=== PATIENT | female | born 1975 | race Caucasian/White ===

== ENCOUNTER → 2018-05-25 12:41 | Outpatient (CLI) | payer BC, SELFPAY ==
--- NOTE | 2018-05-25 12:49 | CA_ITS ---
PROCEDURE: 2-D M-mode and color Doppler study INDICATIONS FOR THE TEST: Chest pain COPD Heart Murmur Tobacco Smoking Palpitations Fatigue Syncope Edema+ Hypertension Diabetes Mellitus Rheumatic Fever SOB+REID Obesity Hyperlipidemia Family History HD+ Additional History Chest heaviness, hand edema PATIENT INFORMATION HEIGHT: 63 WEIGHT: 170 GENDER: Female B/P: 129/93 2-D/M-MODE INTERPRETATION: 2-D MEASUREMENTS OBSERVED VALUES IN CMS Right Ventricular Dimension (RVDd) 2.2 Interventricular Septum (Thickness)(IVsd) 0.7 Left Ventricular Internal Dimensions(LVIDd) 5.1 Left Ventricular Posterior Wall (Thickness)(LVPWd) 0.7 Aortic Root 2.7 Aortic Cusp Separation 2.1 Left Atrial Dimensions (LAD) 3.6 2D 1. Left atrium is normal size, left ventricle is normal size, there is preserved left ventricular systolic function, visually estimated ejection fraction of 55% with no regional wall motion abnormality. 2. The right atrium and right ventricle are normal size and contractility. 3. The aortic, mitral and tricuspid valvular grossly normal. 4. The pulmonic valve is structurally normal. 5. No significant pericardial effusion noted. DOPPLER INTERROGATION: Doppler interrogation of the aortic, mitral and tricuspid valvular presence of mild mitral and tricuspid regurgitation, tricuspid regurgitation jet velocity is inadequate for calculation of the right ventricular systolic pressure, diastolic parameters are inconclusive. CONCLUSION: 1. Normal left ventricular size, preserved left ventricular systolic function, visually estimated ejection fraction of 55% with no regional wall motion abnormality, diastolic parameters are inconclusive. 2. Mild mitral and tricuspid regurgitation 3. No significant pericardial effusion noted.
== END ==
PROVIDERS: PCP Family Medicine; Visit Provider Family Medicine
DX: R06.02 Shortness of breath (principal)
CPT/HCPCS: 93306

== ENCOUNTER → 2019-03-17 09:14 | Outpatient (CLI) | payer BC, SELFPAY ==
--- NOTE | 2019-03-17 09:18 | US_ITS ---
PROCEDURE: US ABDOMEN LIMITED CLINICAL INDICATION: ABD PAIN COMPARISON: No exams were available for comparison FINDINGS: PANCREAS: Unremarkable. No obvious mass or abnormal fluid collection. No ductal dilatation LIVER: No focal liver lesions demonstrated. Homogeneous echogenicity. No intrahepatic biliary ductal dilatation evident RIGHT KIDNEY: Unremarkable. Normal size and echogenicity. No hydronephrosis GALLBLADDER: No gallstones, gallbladder wall thickening, pericholecystic fluid, or biliary dilatation. IMPRESSION: Negative limited abdominal ultrasound Dictated by: Craig Spencer MD 03/17/2019 14:22 Signed by: <Electronically signed by Craig Spencer MD in OV> 03/17/2019 14:22
== END ==
PROVIDERS: PCP Family Medicine; Visit Provider Nurse Practitioner Family
DX: R10.9 Unspecified abdominal pain (principal)
CPT/HCPCS: 76705

== ENCOUNTER → 2019-03-28 10:16 | Outpatient (CLI) | payer BC, SELFPAY ==
--- NOTE | 2019-03-28 10:18 | NM_ITS ---
PROCEDURE: NM HEPATOBILIARY W PHARM CLINICAL INDICATION: ABD PAIN Abdominal pain COMPARISON: US ABDOMEN LIMITED from 03/17/2019 TECHNIQUE: DOSE: 8.27 mCi technetium Choletec 1.5 mcg of CCK FINDINGS: Homogeneous activity is present within the hepatic parenchyma. Activity is present in the gallbladder by 10 minutes. Activity is present in the small bowel by 15 minutes. The gallbladder ejection fraction is calculated to be 89 percent. Slight pain reported with CCK infusion IMPRESSION: No evidence of common or cystic duct obstruction. Normal gallbladder ejection fraction Dictated by: Craig Spencer MD 03/28/2019 12:20 Signed by: <Electronically signed by Craig Spencer MD in OV> 03/28/2019 12:20
== END ==
PROVIDERS: PCP Family Medicine; Visit Provider Nurse Practitioner Family
DX: R10.9 Unspecified abdominal pain (principal)
CPT/HCPCS: 78227; A9537; J2805

== ENCOUNTER 2021-04-09 09:01 | Emergency (ER) | payer BC, SELFPAY ==
[2021-04-09 09:24] VITALS: BP 133/91; PULSE 76; RESP 19; TEMP 37; O2SAT 99; BMI 26.5
--- NOTE | 2021-04-09 09:27 | HMH.EDUTC ---
[facility] [place] Impression: Otitis media Qualifiers: Otitis media type: unspecified Laterality: left Qualified Code(s): H66.92 - Otitis media, unspecified, left ear Disposition: Home, Self-Care Condition on Discharge: Good Instructions: Middle Ear Infection Additional Instructions: *Monitor Temp, Over the counter Motrin or Tylenol as directed/as needed Tylenol every 4 hours and Motrin every 6 hours (as long as your family doctor has told you that you can take it) for fever or pain. and straight to ER if unable to lower temp less than 101.0 after medication given *Warm salt water gargles may help to soothe the throat *Throat Lozenges *Warm fluids like tea with honey may help to soothe the throat *Sleep elevated *Humidifier/Vaporizer Take antibiotics as prescribed Your throat swab was sent for culture. Those results are typically sent to your primary care. Be sure to follow up in 2-3 days with your family doctor/primary care physician if no improvement so they can review those result and treat if necessary. If you don?t have a primary care doctor, I recommend you get one but in the mean time, you will have to return to a walk in clinic Follow up IMMEDIATELY for new or worsening symptoms or no Noticeable improvement over the next 48-72 hours. 911 for difficulty breathing or swallowing You were tested for today for COVID19 your test result should be back in the next 24-48 hours, you may call to the [facility] to see if your test results are back in the next 48 hours [phone] [facility] hours are 9am-9pm You was given a handout with instructions for Self Quarantine and Self isolation for while you wait on test results and what to do if they are positive If you are positive the Health Dept will be contacting you also Make sure to take your Vitamins Vit. C Vit D and Zinc if you can take them Prescriptions: Amoxicillin/Potassium Clav [Augmentin 875-125 Tablet] 1 tab PO Q12H 10 Days #20 tab Transmission Status: [facility] to [facility] methylPREDNISolone [Medrol 4mg tab] 4 mg PO DIRECTED #21 tab Transmission Status: [facility] Referrals: Cuauhtemoc Renteria MD [Primary Care Provider] - As needed Time of Disposition: 09:47 Medical Decision Making - Ravinder Inquiry Pt receiving controlled substance: No Ravinder was queried for this patient: No Vital Signs: 04/09/21 09:24 Temperature 98.6 F Temperature Source Oral Pulse Rate [Right] 76 Respiratory Rate 19 Blood Pressure [Right Arm] 133/91 H Blood Pressure Mean [Right Arm] 105 02 Sat by Pulse Oximetry 99 Oxygen Delivery Method Room Air - Lab Data Lab results reviewed: Yes: I reviewed the patient's lab results. Medical Decision Narrative: Patient state that she has take both Augmentin and Medrol dose pack in the past without complications or reactions [facility] [place] - General Stated complaint: sore throat,left ear pain Time Seen by Provider: 04/09/21 09:27 Mode of Arrival: Ambulatory Description of Symptoms (Recalled from Triage Doc. by RN): SORE THROAT & LEFT EAR SINUS DRAINAGE X3 DAYS HEENT Symptoms (Recalled from RN notes): Yes Resp Symptoms (Recalled from RN notes): No Skin Symptoms (Recalled from RN notes): No MS Symptoms (Recalled from RN notes): No Functional Status (Recalled from RN notes): WNL - History of Present Illness Provider Complaint: Patient states she has been having pain in her left ear and sore throat for several days States that now she is starting to have pain in her sinuses too States that feels like she may be getting sinus infection States that she leaves for vacation and wanted to get checked first - Related Data Previous Rx's Medication Instructions Recorded Amoxicillin/Potassium Clav 1 tab PO Q12H 10 Days #20 tab 04/09/21 [Augmentin 875-125 Tablet] methylPREDNISolone [Medrol 4mg 4 mg PO DIRECTED #21 tab 04/09/21 tab] Allergies Allergy/AdvReac Type Severity Reaction Status Date / Ti
[2021-04-09 09:49] LABS: UTC Strep Screen (Rapid) Negative (Negative)
[2021-04-09 09:51] VITALS: BP 133/91; PULSE 76; RESP 19; TEMP 37; O2SAT 99
== END 2021-04-09 09:56 | disposition home or self-care (01) ==
PROVIDERS: Emergency Provider Nurse Practitioner; PCP Family Medicine
DX: H66.92 Otitis media, unspecified, left ear (principal)
CPT/HCPCS: 87880; 99202; G0463

== ENCOUNTER 2021-07-28 17:16 | Emergency (ER) | payer BC, SELFPAY ==
[2021-07-28 18:45] VITALS: BP 136/91; PULSE 87; RESP 19; TEMP 37.1; O2SAT 99; BMI 28.3
[2021-07-28 19:16] LABS: UTC Strep Screen (Rapid) Negative (Negative)
[2021-07-28 19:17] LABS: UTC Influenza A Antigen Negative (Negative); UTC Influenza B Antigen Negative (Negative)
--- NOTE | 2021-07-28 19:46 | HMH.EDUTC ---
[facility] [place] Clinical Impression: Otitis media Qualifiers: Otitis media type: unspecified Laterality: bilateral Qualified Code(s): H66.93 - Otitis media, unspecified, bilateral Disposition: Home, Self-Care Condition on Discharge: Good Instructions: Middle Ear Infection, Amoxicillin and Clavulanic Acid, Methylprednisolone Additional Instructions: *Monitor Temp, Over the counter Motrin or Tylenol as directed/as needed Tylenol every 4 hours and Motrin every 6 hours (as long as your family doctor has told you that you can take it) for fever or pain. and straight to ER if unable to lower temp less than 101.0 after medication given *Warm salt water gargles may help to soothe the throat *Throat Lozenges *Warm fluids like tea with honey may help to soothe the throat *Sleep elevated *Humidifier/Vaporizer Your throat swab was sent for culture. Those results are typically sent to your primary care. Be sure to follow up in 2-3 days with your family doctor/primary care physician if no improvement so they can review those result and treat if necessary. If you don?t have a primary care doctor, I recommend you get one but in the mean time, you will have to return to a walk in clinic Follow up IMMEDIATELY for new or worsening symptoms or no Noticeable improvement over the next 48-72 hours. 911 for difficulty breathing or swallowing You were tested for today for COVID19 your test result should be back in the next 24-48 hours, you may check for your results on the [facility] My Health Portal if you have trouble logging on or seeing your results you may call You was given a handout with instructions for Self Quarantine and Self isolation for while you wait on test results and what to do if they are positive If you are positive the Health Dept will be contacting you also Make sure to take your Vitamins Vit. C Vit D and Zinc if you can take them Prescriptions: Amoxicillin/Potassium Clav [Augmentin 875-125 Tablet] 1 tab PO Q12H 10 Days #20 tab Transmission Status: Pending to [facility] methylPREDNISolone [Medrol 4mg tab] 4 mg PO DIRECTED #21 tab Transmission Status: [facility] Referrals: Cuauhtemoc Renteria MD [Primary Care Provider] - As needed Forms: Work/School Release Time of Disposition: 19:58 Medical Decision Making - Ravinder Inquiry Pt receiving controlled substance: No Ravinder was queried for this patient: No Vital Signs: 07/28/21 18:45 Temperature 98.7 F Temperature Source Oral Pulse Rate [Right Brachial] 87 Respiratory Rate 19 Blood Pressure [Right Arm] 136/91 H Blood Pressure Mean [Right Arm] 106 Blood Pressure Source [Right Arm] Automatic Cuff Blood Pressure Position [Right Arm] Sitting 02 Sat by Pulse Oximetry 99 Oxygen Delivery Method Room Air - Lab Data Lab results reviewed: Yes: I reviewed the patient's lab results. Lab Results 07/28/21 18:57: Influenza Type A Ag Negative, Influenza Type B Ag Negative 07/28/21 18:57: Strep Scn Rapid Clinic Negative Orders (Tests/Meds): ORDERS Category Date Time Status Covid-19 Nasal PCR ([facility]) Routine Lab 07/28/21 19:00 Received Strep Screen Confirmation Stat Micro 07/28/21 18:57 Received [facility] UTC HPI - General Stated complaint: covid test and treated for symptoms, earach Time Seen by Provider: 07/28/21 19:46 Mode of Arrival: Ambulatory Source of Information: Patient Limitations: No Limitations Description of Symptoms (Recalled from Triage Doc. by RN): PATIENT C/O SORE THROAT, HEADACHE, EAR PAIN, COUGH, AND SOA SINCE WEDNESDAY HEENT Symptoms (Recalled from RN notes): Yes Resp Symptoms (Recalled from RN notes): Yes Skin Symptoms (Recalled from RN notes): No MS Symptoms (Recalled from RN notes): No Functional Status (Recalled from RN notes): WNL - History of Present Illness Provider Complaint: Patient states that she has been having sore throat, sinus congestion and pressure along pressure and feels like she has fluid in bot
[2021-07-28 20:03] VITALS: BP 136/91; PULSE 87; RESP 19; TEMP 37.1; O2SAT 99
== END 2021-07-28 20:06 | disposition home or self-care (01) ==
PROVIDERS: Emergency Provider Nurse Practitioner; PCP Family Medicine
DX: U07.1 COVID-19 (principal); H66.93 Otitis media, unspecified, bilateral
CPT/HCPCS: 87804; 87880; 99203; C9803; G0463; U0003; U0005

== ENCOUNTER → 2021-08-13 10:22 | Outpatient (CLI) | payer BC, SELFPAY | PROVIDERS: Visit Provider Nurse Practitioner | DX: U07.1 COVID-19 (principal) | CPT/HCPCS: C9803; U0003; U0005 ==

== ENCOUNTER → 2021-08-14 14:33 | Outpatient (CLI) | payer BC, SELFPAY ==
[2021-08-14 16:31] LABS: Coronavirus 19 IgG Antibody Positive (Negative); Coronavirus 19 IgM Antibody Negative (Negative)
== END ==
PROVIDERS: PCP Family Medicine; Visit Provider Physician Assistant
DX: Z01.84 Encounter for antibody response examination (principal)
CPT/HCPCS: 36415; 86328

== ENCOUNTER 2022-08-05 08:09 | Emergency (ER) | payer BC, SELFPAY ==
[2022-08-05 08:10] VITALS: BP 137/95; PULSE 94; RESP 19; TEMP 36.7; O2SAT 97; BMI 28.5
--- NOTE | 2022-08-05 08:39 | EXP.UTC ---
Discharge Plan Disposition Patient Disposition: Home, Self-Care Condition: Good Prescriptions Prescriptions: New azithromycin [Zithromax] 250 mg tablet 250 mg PO UD DOSE PK Qty: 6 0RF Rx Instructions: Take two (2) tablets today, then one (1) tablet days #2 thru #5 benzonatate [benzonatate] 100 mg capsule 100 mg PO TIDP PRN (Reason: Cough) Qty: 30 0RF methylprednisolone 4 mg Tablets,Dose Pack 4 mg PO DIRECTED Qty: 21 0RF Referrals Follow up/Referrals: Cuauhtemoc Renteria MD [Primary Care Provider] - See instructions Activity Restrictions/Add. Instructions Additional Instructions/Restrictions: Drink plenty of fluids. Take tylenol or ibuprofen for pain or fever. Take the medications as directed. Follow up with your regular doctor. GO TO THE ER FOR ANY WORSENING SYMPTOMS Clinical Impressions Clinical Impression: Pharyngitis, Acute viral syndrome, Exposure to 2019 novel coronavirus Stand Alone Forms Stand Alone Forms: Work/School Release Discharge ED Provider: Niels Hargrove [facility] HPI General Stated complaint: headache, sore throat,body aches cough Time Seen by Provider: 08/05/22 08:38 Related Data Previous Rx's Medication Instructions Recorded azithromycin 250 mg tablet 250 mg PO UD DOSE PK #6 tabs 08/05/22 (Zithromax) benzonatate 100 mg capsule 100 mg PO TIDP PRN Cough #30 caps 08/05/22 methylprednisolone 4 mg tablets in 4 mg PO DIRECTED #21 tabs 08/05/22 a dose pack Allergies Allergy/AdvReac Type Severity Reaction Status Date / Time No Known Allergies Allergy Verified 08/05/22 08:47 [facility] Disclaimer: The information contained in this section may have been updated after the patient was seen, as this information can be updated by other users. Social History Smoking Status: Never smoker second hand exposure: No alcohol intake: never current occupational status: employed Travel in the last 8 weeks: None housing: house ROS Obtained: Yes All systems reviewed & no additional complaints except as documented Constitutional Constitutional: Reports chills and Reports fever(s) Eyes Eyes: Denies eye discharge ENT Ears, Nose, Mouth, and Throat: Reports as per HPI Cardiovascular Cardiovascular: Denies chest pain Respiratory Respiratory: Denies chest congestion and Reports cough Gastrointestinal Gastrointestingal: Reports nausea; Denies abdominal pain, constipation, cramping, diarrhea or vomiting Musculoskeletal Musculoskeletal: Denies arthralgias Integumentary/Breasts Skin/Breast: Denies rash Neurologic Neurologic: Denies paresthesias Physical Exam General General appearance: alert and in no apparent distress Head Head exam: atraumatic, normocephalic and normal inspection Eye Eye exam: Present normal appearance, PERRL and EOMI ENT ENT exam: Present mucous membranes moist and normal external ear exam Expanded ENT Exam TM/Canal exam: Bilateral TM: erythema and bulging Nose exam: Absent sinus tenderness Mouth exam: Present normal external inspection; Absent drooling Teeth exam: Present normal inspection Throat exam: Present tonsillar erythema, tonsillomegaly and tonsillar exudate Neck Neck exam: Present normal inspection, full ROM and trachea midline; Absent tenderness, meningismus or lymphadenopathy Chest Chest inspection: Present normal inspection and symmetric chest wall rise; Absent tenderness Respiratory Respiratory exam: Present normal lung sounds bilaterally; Absent respiratory distress, wheezes or stridor Cardiovascular Cardiovascular exam: Present regular rate and normal rhythm; Absent systolic murmur or diastolic murmur Abdominal Exam Abdominal exam: Present soft and normal bowel sounds; Absent distention, tenderness, guarding, rebound or rigidity Extremities Exam Extremities exam: Present normal inspection and normal capillary refill; Absent calf tenderness Back Exam Back exam: Present normal inspection and full ROM; Abse
[2022-08-05 09:04] VITALS: BP 137/95; PULSE 94; RESP 19; TEMP 36.7; O2SAT 97
== END 2022-08-05 09:04 | disposition home or self-care (01) ==
PROVIDERS: Emergency Provider Nurse Practitioner Family; PCP Family Medicine
DX: U07.1 COVID-19 (principal); J02.9 Acute pharyngitis, unspecified; R51.9 Headache, unspecified; R52 Pain, unspecified; R05.9 Cough, unspecified
CPT/HCPCS: 99212; 99213; C9803; G0463; U0003; U0005

== ENCOUNTER → 2022-09-08 06:59 | Outpatient (CLI) | payer BC, SELFPAY ==
[2022-09-08 07:35] LABS: Basophils # 0.1 K/mm3 (0-0.2); Basophils % 1.3 % (0.1-2.0); Eosinophils # 0.1 K/mm3 (0.0-0.4); Eosinophils % 2.4 % (0.1-12.0); Hematocrit 42.3 % (37.0-47.0); Lymphocytes # 1.9 K/mm3 (0.7-4.5); Lymphocytes % 38.3 % (10-50); Mean Corpuscular Hemoglobin 29.6 pg (27.0-31.2); Mean Corpuscular Volume 89.7 fl (81-99); Mean Platelet Volume 7.5 fl (7.4-10.4); Monocytes # 0.3 K/mm3 (0.1-1.0); Monocytes % 5.1 % (1.7-9.3); Neutrophils # 2.6 K/mm3 (1.8-7.8); Neutrophils % 52.9 % (37.0-80.0); Platelet Count 260 K/mm3 (142-424); Red Blood Count 4.71 M/mm3 (4.20-5.40); Red Cell Distribution Width 13.1 % (11.5-17.5); White Blood Count 4.8 K/mm3 (4.8-10.8)
[2022-09-08 08:02] LABS: Chloride 111 mmol/L (98-107); Potassium 4.6 mmoL/L (3.5-5.1); Sodium 143 mmol/L (136-145)
[2022-09-08 08:05] LABS: Alanine Aminotransferase 30 U/L (12-78); Albumin Level 4.3 g/dl (3.5-5.0); Albumin/Globulin Ratio 1.5 (1.1-1.8); Alkaline Phosphatase 97 U/L (38-126); Anion Gap 12.6 mEq/L (5-15); Aspartate Amino Transferase 53 U/L (14-36); Bilirubin,Total 0.4 mg/dl (0.2-1.3); Blood Urea Nitrogen 18 mg/dl (7-17); Carbon Dioxide 24 mmol/L (22.0-30.0); Cholesterol 160 mg/dl (140-200); Estimated Glomerular Filt Rate 90 ml/min (>60); Free T4 (Free Thyroxine) 0.79 ng/dl (0.78-2.19); GFR (African American) 109 ML/MIN (>60); Globulin 2.8 g/dL (1.3-3.2); Glucose 99 mg/dl (74-100); Total Protein,Serum 7.1 g/dl (6.3-8.2); Triglycerides 93 mg/dl (30-150); VLDL Cholesterol 19 mg/dL (0-40)
[2022-09-08 08:06] LABS: Chol/HDL Ratio 3.1 (1-3.5); HDL Cholesterol 51 mg/dl (40-60)
[2022-09-08 08:14] LABS: 25-OH Vitamin D, Total 37.6 ng/mL (30-100)
[2022-09-08 08:23] LABS: Direct LDL Cholesterol 79.51 mg/dL (100-129)
[2022-09-08 08:37] LABS: Thyroid Stimulating Hormone 1.95 uIU/mL (0.465-4.68)
[2022-09-08 09:14] LABS: Vitamin B12 290 pg/mL (239-931)
== END ==
PROVIDERS: PCP Family Medicine; Visit Provider Physician Assistant
DX: R53.83 Other fatigue (principal); R79.89 Other specified abnormal findings of blood chemistry; Z13.220 Encounter for screening for lipoid disorders
CPT/HCPCS: 36415; 80053; 80061; 82306; 82607; 84439; 84443; 85025

== ENCOUNTER → 2023-05-10 10:41 | Outpatient (CLI) | payer BC, SELFPAY | PROVIDERS: PCP Student in an Organized Health Care Education/Training Program; Visit Provider Student in an Organized Health Care Education/Training Program | DX: J02.0 Streptococcal pharyngitis (principal) | CPT/HCPCS: 87635 ==

== ENCOUNTER → 2023-07-05 16:06 | Outpatient (CLI) | payer BC, SELFPAY ==
[2023-07-05 16:15] LABS: Adenovirus,PCR Not Detected (NotDetected); Coronavirus 19, PCR Not Detected (NotDetected); Coronavirus 229E Not Detected (NotDetected); Coronavirus NL63 Not Detected (NotDetected); Coronavirus OC43 Not Detected (NotDetected); Coronovirus HKU1,PCR Not Detected (NotDetected); Human Metapneumovirus Not Detected (NotDetected); Influenza A, PCR Not Detected (NotDetected); Influenza AH1, 2009 Not Detected (NotDetected); Influenza AH1, PCR Not Detected (NotDetected); Influenza AH3,PCR Not Detected (NotDetected); Influenza B, PCR Not Detected (NotDetected); Parainfluenza 1, PCR Not Detected (NotDetected); Parainfluenza 2, PCR Not Detected (NotDetected); Parainfluenza 3, PCR Not Detected (NotDetected); Parainfluenza 4, PCR Not Detected (NotDetected); Respiratory Syncytial Virus Not Detected (NotDetected); Rhinovirus/Enterovirus Not Detected (NotDetected)
== END ==
PROVIDERS: PCP Family Medicine; Visit Provider Family Medicine
DX: J06.9 Acute upper respiratory infection, unspecified (principal)
CPT/HCPCS: 87632; 87635

== ENCOUNTER 2024-01-05 07:13 | Outpatient (CLI) | payer BC, SELFPAY ==
[2024-01-05 07:26] LABS: Eosinophils # 0.2 K/mm3 (0.0-0.4); Eosinophils % 3.6 % (0.1-12.0); Hematocrit 42.8 % (37.0-47.0); Lymphocytes # 1.7 K/mm3 (0.7-4.5); Lymphocytes % 39.2 % (10-50); Mean Corpuscular HGB Conc 32.8 g/dL (31.8-35.4); Mean Corpuscular Hemoglobin 29.9 pg (27.0-31.2); Mean Platelet Volume 8.4 fl (7.4-10.4); Monocytes # 0.3 K/mm3 (0.1-1.0); Monocytes % 5.5 % (1.7-9.3); Neutrophils # 2.3 K/mm3 (1.8-7.8); Neutrophils % 50.6 % (37.0-80.0); Platelet Count 210 K/mm3 (142-424); Red Cell Distribution Width 13.5 % (11.5-17.5); White Blood Count 4.5 K/mm3 (4.8-10.8)
[2024-01-05 10:46] LABS: Chloride 107 mmol/L (98-107); Potassium 4.3 mmoL/L (3.5-5.1); Sodium 140 mmol/L (136-145)
[2024-01-05 10:49] LABS: Alanine Aminotransferase 33 U/L (12-78); Albumin Level 4.3 g/dl (3.5-5.0); Albumin/Globulin Ratio 1.6 (1.1-1.8); Alkaline Phosphatase 92 U/L (38-126); Anion Gap 13.3 mEq/L (5-15); Aspartate Amino Transferase 42 U/L (14-36); Bilirubin,Total 0.5 mg/dl (0.2-1.3); Blood Urea Nitrogen 16 mg/dl (7-17); Carbon Dioxide 24 mmol/L (22.0-30.0); Cholesterol 175 mg/dl (140-200); Estimated Glomerular Filt Rate 77 ml/min (>60); GFR (African American) 93 ML/MIN (>60); Globulin 2.7 g/dL (1.3-3.2); Hemoglobin A1C 5.4 % (4.0-6.0); Triglycerides 123 mg/dl (30-150); VLDL Cholesterol 25 mg/dL (0-40)
[2024-01-05 10:50] LABS: Calcium 9.6 mg/dl (8.4-10.2); Chol/HDL Ratio 3.4 (1-3.5); Glucose 96 mg/dl (74-100); HDL Cholesterol 51 mg/dl (40-60)
[2024-01-05 11:01] LABS: Direct LDL Cholesterol 95.32 mg/dL (100-129)
[2024-01-05 11:21] LABS: Thyroid Stimulating Hormone 2.97 uIU/mL (0.465-4.68)
== END 2024-01-05 23:59 | disposition home or self-care (01) ==
LOC: LAB 07:14
PROVIDERS: PCP Family Medicine; Visit Provider Nurse Practitioner Family
DX: D64.9 Anemia, unspecified (principal); Z13.220 Encounter for screening for lipoid disorders; Z13.1 Encounter for screening for diabetes mellitus; Z13.29 Encounter for screening for other suspected endocrine disorder
CPT/HCPCS: 36415; 80050; 80053; 80061; 83036; 84443; 85025

== ENCOUNTER 2024-03-07 11:56 | Emergency (ER) | payer BC, SELFPAY ==
[2024-03-07 12:05] VITALS: BP 131/101; PULSE 67; RESP 20; TEMP 36.9; O2SAT 97; BMI 28.8
--- NOTE | 2024-03-07 12:52 | ED_ITS ---
Discharge Plan Disposition Patient Disposition: Home, Self-Care Condition: Good Prescriptions Prescriptions: New ondansetron 4 mg Tablet,Disintegrating 4 mg PO Q8H PRN (Reason: Nausea) Qty: 12 0RF Referrals Follow up/Referrals: Cuauhtemoc Renteria MD [Primary Care Provider] - See instructions Activity Restrictions/Add. Instructions Additional Instructions/Restrictions: Drink plenty of fluids. Take tylenol or ibuprofen for pain or fever. Take the medications as directed. Follow up with your regular doctor. GO TO THE ER FOR ANY WORSENING SYMPTOMS Clinical Impressions Clinical Impression: Gastroenteritis Stand Alone Forms Stand Alone Forms: Work/School Release Instructions Patient Instructions: DI for Viral Gastroenteritis -- Adult, Ondansetron Print Language Print Language: [place] Discharge ED Provider: Niels Hargrove [facility] General Stated complaint: abd pain, diarrhea Mode of Arrival: Ambulatory Source of Information: Patient Limitations: No Limitations Time Seen by Provider: 03/07/24 12:52 Description of Symptoms (Recalled from Triage Doc. by RN): PATIENT C/O NAUSEA, DIARRHEA, AND STOMACH CRAMPS THAT STARTED WEDNESDAY NIGHT. SHE STATES SHE HAS NOT EATEN OR DRANK SINCE YESTERDAY BECAUSE IT MAKES HER HAVE MORE DIARRHEA AND FEEL WORSE HEENT Symptoms (Recalled from RN notes): No Resp Symptoms (Recalled from RN notes): No Skin Symptoms (Recalled from RN notes): No MS Symptoms (Recalled from RN notes): No Functional Status (Recalled from RN notes): WNL Related Data Previous Rx's ?Medication ?Instructions ?Recorded ondansetron 4 mg disintegrating 4 mg PO Q8H PRN Nausea #12 tabs 03/07/24 tablet Allergies Allergy/AdvReac Type Severity Reaction Status Date / Time No Known Allergies Allergy Verified 05/10/23 10:10 Worker's Comp Is this a Worker's Comp case?: No [facility] Disclaimer: The information contained in this section may have been updated after the patient was seen, as this information can be updated by other users. Medical History (Updated 03/07/24 @ 13:03 by Niels Hargrove APRN) Superior labrum [id number] (SLAP) tear of right shoulder Surgical History (Updated 05/10/23 @ 10:13 by MADIE Gibson) History of bladder surgery History of partial hysterectomy [place] teeth extracted Family History Brother Asthma Cancer Father Cancer Social History Smoking Status: Never smoker second hand exposure: No alcohol intake: never current occupational status: employed Travel in the last 8 weeks: None housing: house ROS Obtained: Yes All systems reviewed & no additional complaints except as documented Constitutional Constitutional: Denies chills, Denies fever(s) and Reports poor appetite ENT Ears, Nose, Mouth, and Throat: Denies dizziness and Denies sore throat Cardiovascular Cardiovascular: Denies dyspnea Respiratory Respiratory: Denies chest congestion, Denies cough and Denies dyspnea Gastrointestinal Gastrointestingal: Reports as per HPI; Denies abdominal pain Genitourinary Female Genitourinary: Denies difficulty voiding, Denies dysuria, Denies hematuria, Denies urinary frequency, Denies urinary incontinence, Denies urinary hesitancy and Denies urinary urgency Musculoskeletal Musculoskeletal: Denies arthralgias Integumentary/Breasts Skin/Breast: Denies rash Neurologic Neurologic: Denies dizziness Physical Exam General General appearance: alert and in no apparent distress Head Head exam: atraumatic and normocephalic Eye Eye exam: Present normal appearance, PERRL and EOMI ENT ENT exam: Present normal exam, normal oropharynx, mucous membranes moist, TM's normal bilaterally and normal external ear exam Neck Neck exam: Present normal inspection, full ROM and trachea midline; Absent tenderness, meningismus or lymphadenopathy Chest Chest inspection: Present normal inspection and symmetric chest wall rise; Absent tenderness, rash or abscess Respiratory Respiratory exam: Present normal lung sounds bilaterally; Absent respiratory distress, wheezes or stridor Cardiovascular Cardiovascular exam: Present regular rate and normal rhythm; Absent irregular rhythm, systolic murmur, diastolic murmur or JVD Abdominal Exam Abdominal exam: Present soft and hyperactive bowel sounds; Absent distention, tenderness, guarding, rebound, rigidity, psoas sign, obturator sign, heel tap sign, Hanna's sign, Rovsing's sign or tenderness at McBurney's Point Extremities Exam Extremities exam: Present normal inspection and full ROM; Absent tenderness Back Exam Back exam: Present normal inspection and full ROM; Absent tenderness, CVA tenderness (R) or CVA tenderness (L) Neurological Exam Neurological exam: Present alert, oriented X3 and CN II-XII intact Psychiatric Psychiatric exam: Present normal affect and normal mood Skin Skin exam: Present warm, dry, intact and normal color Lymphatic Lymphatic Findings: no adenopathy Medical Decision Making Medical Records Medical records reviewed: No I reviewed the patient's medical records. Ravinder Inquiry Pt receiving controlled substance: No Vital Signs: 03/07/24 12:05 Temperature 98.4 F Temperature Source Oral Pulse Rate [Left Brachial] 67 Respiratory Rate 20 Blood Pressure [Left Arm] 131/101 H Blood Pressure Mean [Left Arm] 111 Blood Pressure Source [Left Arm] Automatic Cuff Blood Pressure Position [Left Arm] Sitting 02 Sat by Pulse Oximetry 97 Oxygen Delivery Method Room Air
[2024-03-07 13:00] VITALS: BP 131/101; PULSE 67; RESP 20; TEMP 36.9; O2SAT 97
== END 2024-03-07 13:04 | disposition home or self-care (01) ==
PROVIDERS: Emergency Provider Nurse Practitioner Family; PCP Family Medicine
DX: R10.9 Unspecified abdominal pain (principal); K52.9 Noninfective gastroenteritis and colitis, unspecified; R11.0 Nausea
CPT/HCPCS: 99212; 99214; G0463

== ENCOUNTER 2024-03-11 09:48 | Emergency (ER) | payer BC, SELFPAY ==
[2024-03-11 09:55] VITALS: BP 152/97; PULSE 71; RESP 20; TEMP 36.6; O2SAT 98; BMI 28.3
[2024-03-11 10:06] LABS: UTC Strep Screen (Rapid) Negative (Negative)
--- NOTE | 2024-03-11 10:27 | ED_ITS ---
Discharge Plan Disposition Patient Disposition: Home, Self-Care Condition: Good Prescriptions Prescriptions: New azithromycin 250 mg tablet 250 mg PO DIRECTED Qty: 6 0RF Rx Instructions: Take two (2) tablets on day #1, then one (1) tablet day #2 thru #5 No Action ondansetron 4 mg Tablet,Disintegrating 4 mg PO Q8H PRN (Reason: Nausea) Qty: 12 0RF Referrals Follow up/Referrals: Cuauhtemoc Renteria MD [Primary Care Provider] - See instructions Activity Restrictions/Add. Instructions Additional Instructions/Restrictions: Start antibiotics today be sure to take it as ordered with the full length of time although you should start feeling better in 24-48 hours. Change toothbrush and toothpaste 24-48 hours after starting antibiotics Tylenol or Motrin as needed for fever or pain Encourage fluids, water, Gatorade, Powerade, try cold fluids, popsicles, ice cream will make it feel better You are contagious for 24 hours. Avoid kissing anyone, no eating or drinking after anyone. You are contagious. Follow-up the ER for new or worsening symptoms or no noticeable improvement over the next 24-48 hours. Follow-up with PCP this week. Clinical Impressions Clinical Impression: Strep throat Instructions Patient Instructions: DI for Strep Throat Print Language Print Language: Mauritanian Discharge ED Provider: Ana ([facility])[place] [facility] [place] General Stated complaint: sore throat, left ear pain Mode of Arrival: Ambulatory Source of Information: Patient Limitations: No Limitations Time Seen by Provider: 03/11/24 10:27 Description of Symptoms (Recalled from Triage Doc. by RN): PATIENT C/O SORE THROAT AND LEFT EAR PAIN SINCE YESTERDAY HEENT Symptoms (Recalled from RN notes): Yes Resp Symptoms (Recalled from RN notes): No Skin Symptoms (Recalled from RN notes): No MS Symptoms (Recalled from RN notes): No Functional Status (Recalled from RN notes): WNL History of Present Illness Provider Complaint: 48 yr female presents for sore throat and left ear pain Related Data Previous Rx's ?Medication ?Instructions ?Recorded ondansetron 4 mg disintegrating 4 mg PO Q8H PRN Nausea #12 tabs 03/07/24 tablet azithromycin 250 mg tablet 250 mg PO DIRECTED #6 tabs 03/11/24 Allergies Allergy/AdvReac Type Severity Reaction Status Date / Time No Known Allergies Allergy Verified 05/10/23 10:10 Worker's Comp Is this a Worker's Comp case?: No [facility] Disclaimer: The information contained in this section may have been updated after the patient was seen, as this information can be updated by other users. Medical History , INFORMATION SERVICES CONSULTANT) Superior labrum evkwykvi-dw-ikrfforvv (SLAP) tear of right shoulder Surgical History , INFORMATION SERVICES CONSULTANT) History of bladder surgery History of partial hysterectomy [place] teeth extracted Family History , INFORMATION SERVICES CONSULTANT) Cancer Brother Father Asthma Brother Social History , INFORMATION SERVICES CONSULTANT) Smoking Status: Never smoker second hand exposure: No alcohol intake: never current occupational status: employed Travel in the last 8 weeks: None housing: house ROS Obtained: Yes All systems reviewed & no additional complaints except as documented Constitutional Constitutional: Reports system reviewed and no additional complaints, except as documented Eyes Eyes: Reports system reviewed and no additional complaints, except as documented ENT Ears, Nose, Mouth, and Throat: Reports system reviewed and no additional complaints, except as documented, Reports as per HPI, Reports otalgia and Reports sore throat Cardiovascular Cardiovascular: Reports system reviewed and no additional complaints, except as documented Respiratory Respiratory: Reports system reviewed and no additional complaints, except as documented Gastrointestinal Gastrointestingal: Reports system reviewed and no additional complaints, except as documented Musculoskeletal Musculoskeletal: Reports system reviewed and no additional complaints, except as documented Integumentary/Breasts Skin/Breast: Reports system reviewed and no additional complaints, except as documented Neurologic Neurologic: Reports system reviewed and no additional complaints, except as documented Endocrine Endocrine: Reports system reviewed and no additional complaints, except as documented Hematologic/Lymphatic Henatologic/Lymphatic: Reports system reviewed and no additional complaints, except as documented Allergic/Immunologic Allergic/Immunologic: Reports system reviewed and no additional complaints, except as documented Physical Exam General General appearance: alert and in no apparent distress ENT ENT exam: Present mucous membranes moist and TM's normal bilaterally Expanded ENT Exam Throat exam: Present tonsillar erythema, tonsillomegaly and tonsillar exudate Respiratory Respiratory exam: Present normal lung sounds bilaterally Cardiovascular Cardiovascular exam: Present regular rate and normal rhythm Neurological Exam Neurological exam: Present alert and oriented X3 Skin Skin exam: Present warm and intact Medical Decision Making Medical Records Medical records reviewed: Yes I reviewed the patient's medical records. Ravinder Inquiry Pt receiving controlled substance: No Ravinder was queried for this patient: No Vital Signs: 03/11/24 09:55 Temperature 97.9 F Temperature Source Oral Pulse Rate [Left Brachial] 71 Respiratory Rate 20 Blood Pressure [Left Arm] 152/97 H Blood Pressure Mean [Left Arm] 115 Blood Pressure Source [Left Arm] Automatic Cuff Blood Pressure Position [Left Arm] Sitting 02 Sat by Pulse Oximetry 98 Oxygen Delivery Method Room Air Lab Data Lab results reviewed: Yes I reviewed the patient's lab results. Lab Results 03/11/24 09:58: Strep Scn Rapid Clinic Negative Orders (Tests/Meds): ORDERS Category Date Time Status Strep Screen Confirmation Stat Micro 03/11/24 09:58 Received
[2024-03-11 10:42] VITALS: BP 152/97; PULSE 71; RESP 20; TEMP 36.6; O2SAT 98
== END 2024-03-11 10:48 | disposition home or self-care (01) ==
PROVIDERS: Emergency Provider Nurse Practitioner Family; PCP Family Medicine
DX: J02.0 Streptococcal pharyngitis (principal); H92.02 Otalgia, left ear
CPT/HCPCS: 87880; 99212; 99214; G0463

== ENCOUNTER 2024-08-30 16:34 | Outpatient (CLI) | payer BC, SELFPAY ==
[2024-08-30 16:44] LABS: Human Rhinovirus Not Detected (NotDetected); Influenza A, PCR Not Detected (NotDetected); Influenza B, PCR Not Detected (NotDetected); Respiratory Syncytial Virus Not Detected (NotDetected)
[2024-08-30 18:19] LABS: Coronavirus 19, PCR Detected (NotDetected)
== END 2024-08-30 23:59 | disposition home or self-care (01) ==
LOC: LAB 16:35
PROVIDERS: PCP Family Medicine; Visit Provider Family Medicine
DX: J06.9 Acute upper respiratory infection, unspecified (principal)
CPT/HCPCS: 87631

== ENCOUNTER 2025-01-09 13:21 | Emergency (ER) | payer BC, SELFPAY ==
--- NOTE | 2025-01-09 13:24 | PC.NURSE ---
PT attempting to leave [facility]A
[2025-01-09 13:30] VITALS: BP 122/86; BP 132/86; PULSE 80; PULSE 83; RESP 18; TEMP 36.9; O2SAT 100; BMI 21.2
--- NOTE | 2025-01-09 13:36 | CT_ITS ---
FINAL REPORT TECHNIQUE: After the administration of intravenous contrast, axial images were obtained through the abdomen and pelvis by computed tomography. This study was performed with technique to keep radiation doses as low as reasonably achievable, (ALARA). Individualized dose reduction techniques using automated exposure control or adjustment of the MA and/or KV according to the patient's size were employed. CLINICAL HISTORY: Right-sided abdominal pain, nausea FINDINGS: Abdomen: The lung bases are clear. The liver demonstrates a tiny, benign-appearing cyst in the lateral left lobe measuring up to 7 mm. Gallbladder is present. The spleen is unremarkable. The adrenals are normal. The pancreas is unremarkable. The kidneys enhance appropriately. The aorta is normal in caliber. There is no free fluid or adenopathy. Pelvis: The appendix is normal. There is localized inflammatory reaction in the ascending colon with associated mucosal thickening best seen on images 45-52 of series 3. There is high density within a diverticulum. No definite abscess is seen. The urinary bladder is distended. There is no free fluid or adenopathy. IMPRESSION: Acute diverticulitis without definite abscess. Reviewed, Interpreted and Dictated by Jama Bardales MD Transcribed by Oneyda Riley Authenticated and [facility]
--- NOTE | 2025-01-09 13:37 | ED_ITS ---
Discharge Plan Disposition Patient Disposition: Home, Self-Care Condition: Good Prescriptions Prescriptions: New metronidazole 500 mg tablet 500 mg PO BID 5 Days Qty: 10 0RF ciprofloxacin HCl [Cipro] 500 mg tablet 500 mg PO BID 5 Days Qty: 10 0RF metronidazole 500 mg tablet 500 mg PO Q8H 5 Days Qty: 15 0RF No Action methylprednisolone [Medrol (Homero)] 4 mg tablets,dose pack See Rx Instructions PO PER PKG DIR Qty: 21 0RF Rx Instructions: PO PER PKG DIR for 6 days wojhoekqmsoyjyw-rzpwpfxlw-QI [Bromfed DM] 2-30-10 mg/5 mL syrup 10 ml PO Q6H PRN (Reason: cough/cold symptoms) Qty: 150 0RF azithromycin 250 mg tablet See Rx Instructions PO .COMPLEX Qty: 6 0RF Rx Instructions: For 250 mg dose pack: take 500 mg today (day 1), then 250 mg for 4 days (days 2-5) PO Referrals Follow up/Referrals: Cuauhtemoc Renteria MD [Primary Care Provider, Medical] - See instructions Joel Cooper II, MD [Staff Physician, Gastroenterology] - See instructions Activity Restrictions/Add. Instructions Additional Instructions/Restrictions: Please take your medication as prescribed, recommend clear liquid diet, bowel rest, please follow-up with GI doctor and PCP in the upcoming days, if you have worsening fever chills pain, inability to tolerate oral intake, please return to the emergency department. Clinical Impressions Clinical Impression: Acute diverticulitis Instructions Patient Instructions: DI for Diverticulitis Print Language Print Language: Tajik Discharge ED Provider: Janes Allison Adult HPI <CARO Seay - Last Filed: 01/09/25 16:27> General Chief complaint: Abdominal Pain Stated complaint: abd pain nausea Time Seen by Provider: 01/09/25 13:27 Mode of Arrival: Ambulatory Source of Information: Patient Description of Symptoms (Recalled from ER Triage Doc. by RN): PT presents to the ED for evaluation of right ABD pain that has progressively gotten worse since this am. PT denies burning with urination, denies complications with urination. Pt stated she had a normal bowel movement this am but was constipated prior to that BM. PT rates pain 3/10. PT has not taken anything for pain. PT stated the pain is around naval and goes towards the right of abd. Denies radiation to back or shoulders. PT states she has gallbladder and appendix. History of Present Illness HPI narrative: 49-year-old female presents to the emergency department with right-sided abdominal pain, that started this morning, and progressively worsening, she endorses nausea, denies fever chills chest pain shortness of breath, denies any vomiting, denies any diarrhea, does admit to constipation, which is somewhat chronic for her, she states she had bowel movement yesterday and today, which was normal and formed in caliber, denies any hematuria melena hematochezia, hemoptysis or hematemesis, denies any real urinary type symptomatology, denies any vaginal type symptomatology, patient has no other relevant past medical history, takes no other medications at home, denies any alcohol tobacco or drug use, prior partial hysterectomy and bladder tack, admits to remote gallbladder problems , several years ago, but is had no other prior intervention/workup. Triage vitals unremarkable Related Data Previous Rx's ?Medication ?Instructions ?Recorded azithromycin 250 mg tablet See Rx Instructions PO .COM PLEX #6 10/15/24 tabs sqmxnoveruvpljz-mtobfganqdmlmuh-SJ 10 ml PO Q6H PRN co ugh/cold 10/15/24 2 mg-30 mg-10 mg/5 mL oral syrup symptoms #150 mL (Bromfed DM) methylprednisolone 4 mg tablets in See Rx Instructions PO PER PKG DIR 10/15/24 a dose pack (Medrol (Homero)) #21 tabs ciprofloxacin HCl 500 mg tablet 500 mg PO BID 5 days # 10 tabs 01/09/25 (Cipro) metronidazole 500 mg tablet 500 mg PO BID 5 days #10 t abs 01/09/25 metronidazole 500 mg tablet 500 mg PO Q8H 5 days #15 t abs 01/09/25 Allergies Allergy/AdvReac Type Severity Reaction Status Date / Time No Known Allergies Allergy Verified 10/15/24 11:20 [facility] <CARO Seay - Last Filed: 01/09/25 16:27> [facility] Disclaimer: The information contained in this section may have been updated after the patient was seen, as this information can be updated by other users. Medical History (Updated 01/09/25 @ 16:27 by CARO Seay) Sinusitis Superior labrum rifqsshl-gz-nhcphjzzj (SLAP) tear of right shoulder Surgical History History of bladder surgery History of partial hysterectomy Orange teeth extracted Family History Brother Asthma Cancer Father Cancer Social History Smoking Status: Never smoker second hand exposure: No alcohol intake: never current occupational status: employed Travel in the last 8 weeks?: None housing: house Other Medical History Have you received the Pneumonia Vaccine: No <CARO Seay - Last Filed: 01/09/25 16:27> ROS Obtained: Yes All systems reviewed & no additional complaints except as documented Physical Exam <CARO Seay - Last Filed: 01/09/25 16:27> General General appearance: alert and in no apparent distress Head Head exam: atraumatic and normocephalic Eye Eye exam: Present PERRL and EOMI ENT ENT exam: Present mucous membranes moist Neck Neck exam: Present normal inspection Chest Chest inspection: Present normal inspection and symmetric chest wall rise Respiratory Respiratory exam: Present normal lung sounds bilaterally; Absent respiratory distress Cardiovascular Cardiovascular exam: Present regular rate and normal rhythm Abdominal Exam Abdominal exam: Present soft, tenderness, guarding, Hanna's sign and tenderness at McBurney's Point; Absent rebound, rigidity or Rovsing's sign Abdominal tenderness: Present RUQ, RLQ and mild Comment: Mild to moderate tenderness to palpation to the RLQ, RUQ, positive Hanna sign and positive McBurney's point tenderness, mild CVA tenderness to the right, negative CVA tenderness to the left. Extremities Exam Extremities exam: Present normal inspection Back Exam Back exam: Present CVA tenderness (R); Absent CVA tenderness (L) Neurological Exam Neurological exam: Present alert and oriented X3 Psychiatric Psychiatric exam: Present normal affect Skin Skin exam: Present warm and dry Medical Decision Making <CARO Seay - Last Filed: 01/09/25 16:27> Medical Records Medical records reviewed: Yes I reviewed the patient's medical records. Screening: Per USPSTF and CDC recommendations, given the prevalence of disease in our region, it is our hospital?s policy to screen for HIV and viral Hepatitis for all patients aged 18 and over and those with ongoing risk factors. Ravinder Inquiry Pt receiving controlled substance: Yes Ravinder was queried for this patient: No Reason not queried -: Emergent pt cond-no time Risks and benefits of using a controlled substance: were discussed with pt by me Vital Signs: 01/09/25 13:30 01/09/25 13:30 01/09/25 14:00 Temperature 98.4 F Temperature Source Oral Pulse Rate 83 75 Pulse Rate [Right] 80 Respiratory Rate 18 18 18 Blood Pressure 132/86 126/75 Blood Pressure [Right Arm] 122/86 Blood Pressure Mean 101 97 Blood Pressure Mean [Right Arm] 98 Blood Pressure Source Blood Pressure Position 02 Sat by Pulse Oximetry 100 100 99 Oxygen Delivery Method Room Air 01/09/25 14:30 01/09/25 15:00 01/09/25 15:30 Temperature Temperature Source Pulse Rate 76 20 L 73 Pulse Rate [Right] Respiratory Rate 18 18 18 Blood Pressure 127/81 125/90 109/71 L Blood Pressure [Right Arm] Blood Pressure Mean 98 98 87 Blood Pressure Mean [Right Arm] Blood Pressure Source Blood Pressure Position 02 Sat by Pulse Oximetry 98 100 98 Oxygen Delivery Method 01/09/25 16:30 Temperature 98.0 F Temperature Source Oral Pulse Rate 80 Pulse Rate [Right] Respiratory Rate 16 Blood Pressure 117/81 Blood Pressure [Right Arm] Blood Pressure Mean Blood Pressure Mean [Right Arm] Blood Pressure Source Automatic Cuff Blood Pressure Position Sitting 02 Sat by Pulse Oximetry Oxygen Delivery Method Room Air Lab Data Lab results reviewed: Yes I reviewed the patient's lab results. Lab Results 01/09/25 13:28: Urine Color Yellow, Urine Appearance Clear, Urine pH 7.0, Ur Specific [place] 1.025, Urine Protein Negative, Urine Glucose (UA) Negative, Urine Ketones Negative, Urine Blood Negative, Urine Nitrate Negative, Urine Bilirubin Negative, Urine Urobilinogen 0.2, Ur Leukocyte Esterase Trace, Urine RBC 3-5, Urine WBC 20-50, Ur Squamous Epith Cells 10-20, Urine Bacteria 3+, Urine Mucus 1+ 01/09/25 13:48: WBC 7.6, RBC 4.26, Hgb 12.7, Hct 38.0, MCV 89.2, MCH 29.8, MCHC 33.4, RDW 11.9, Plt Count 173, MPV 10.0, Neut % (Auto) 74.3, Lymph % (Auto) 16.4, [place] % (Auto) 7.3, Eos % (Auto) 1.6, Baso % (Auto) 0.1, Neut # (Auto) 5.6, Lymph # (Auto) 1.2, [place] # (Auto) 0.6, Eos # (Auto) 0.1, Baso # (Auto) 0.0, Sodium 139, Potassium 3.7, Chloride 107, Carbon Dioxide 29, Anion Gap 6.7, BUN 11, Creatinine 0.70, Estimated Creat Clear 85, Estimated GFR 90, Est GFR ( Amer) 109, Glucose 98, Lactate 0.9, Calcium 9.0, Total Bilirubin 0.5, AST 30, ALT 19, Alkaline Phosphatase 75, Total Protein 7.2, Albumin 4.3, Globulin 2.9, Albumin/Globulin Ratio 1.5, Lipase 99 01/09/25 13:48 01/09/25 13:48 Orders (Tests/Meds): ED MEDICATIONS Discontinued Medications Generic Name Dose Route Start Last Admin Trade Name Timq PRN Reason Stop Dose Admin Iopamidol 75 ml 01/09/25 14:16 01/09/25 14:17 Iopamidol-370 (76%);100ml Bottle IV 01/09/25 14:17 75 ml ONCE ONE Administration Morphine Sulfate 2 mg 01/09/25 13:36 01/09/25 13:56 Morphine 2mg/Ml Syringe IV 01/09/25 13:37 2 mg ONCE ONE Administration Ondansetron HCl 4 mg 01/09/25 13:37 01/09/25 13:55 Ondansetron 4mg/2ml Vial IV 01/09/25 13:38 4 mg ONCE ONE Administration Sodium Chloride 10 ml 01/09/25 14:16 01/09/25 14:17 Sodium Chloride 0.9% 10ml Syr (Rad Only) IV 01/09/25 14:17 10 ml ONCE ONE Administration ORDERS Category Date Time Status CT abdomen pelvis w con Stat Cat Scan 01/09/25 13:36 Completed Complete Blood Count Auto Diff Stat Lab 01/09/25 13:48 Completed Comprehensive Metabolic Panel Stat Lab 01/09/25 13:48 Completed Lactic Acid Stat Lab 01/09/25 13:48 Completed Lipase Stat Lab 01/09/25 13:48 Completed Urinalysis and Microscopic Stat Lab 01/09/25 13:28 Completed Urine Culture Stat Micro 01/09/25 13:28 Received Medical Decision Narrative: 49-year-old female presents the emergency department with abdominal pain that is localized to the right side, with nausea, constipation yesterday, no vomiting, differential diagnosis include but not limited to appendicitis, pancreatitis, bowel obstruction, ileus, pseudo colonic obstruction, volvulus, acute UTI, acute pyelonephritis, nephrolithiasis, ureterolithiasis, diverticulitis, urine cyst among others. I discussed this patient's case with attending physician Dr. Vickers Obtain basic laboratory studies, lactate level, lipase level urinalysis, CT abdomen pelvis with contrast, will give 2 mg IV morphine 4 mg of Zofran for nausea. CMP is unremarkable, lipase is within normal limits, there is no lactic acidosis. CBC unremarkable. Urinalysis is unremarkable, negative nitrites, leukocyte esterase. I reviewed the patient's CT and pelvis with contrast along the corresponding radiologic report, acute diverticulitis without definitive abscess. I discussed the results with the patient family bedside, recommend clear liquid diet, bowel rest, will prescribe ciprofloxacin 500 mg p.o. twice daily for 5 days, and Flagyl 500 mg p.o. Q8 for 5 days, for acute uncomplicated diverticulitis, patient will follow-up with GI doctor and PCP in the upcoming days/weeks, she will return emergency department any worsening signs or symptoms to include nausea vomiting, decreased p.o. intake, inability tolerate p.o. intake, worsening pain or fever or chills. Patient family understanding and agree with current treatment plan/discharge plan. <Janes Allison MD - Last Filed: 01/10/25 21:29> Vital Signs: 01/09/25 13:30 01/09/25 13:30 01/09/25 14:00 Temperature 98.4 F Temperature Source Oral Pulse Rate 83 75 Pulse Rate [Right] 80 Respiratory Rate 18 18 18 Blood Pressure 132/86 126/75 Blood Pressure [Right Arm] 122/86 Blood Pressure Mean 101 97 Blood Pressure Mean [Right Arm] 98 Blood Pressure Source Blood Pressure Position 02 Sat by Pulse Oximetry 100 100 99 Oxygen Delivery Method Room Air 01/09/25 14:30 01/09/25 15:00 01/09/25 15:30 Temperature Temperature Source Pulse Rate 76 20 L 73 Pulse Rate [Right] Respiratory Rate 18 18 18 Blood Pressure 127/81 125/90 109/71 L Blood Pressure [Right Arm] Blood Pressure Mean 98 98 87 Blood Pressure Mean [Right Arm] Blood Pressure Source Blood Pressure Position 02 Sat by Pulse Oximetry 98 100 98 Oxygen Delivery Method 01/09/25 16:30 Temperature 98.0 F Temperature Source Oral Pulse Rate 80 Pulse Rate [Right] Respiratory Rate 16 Blood Pressure 117/81 Blood Pressure [Right Arm] Blood Pressure Mean Blood Pressure Mean [Right Arm] Blood Pressure Source Automatic Cuff Blood Pressure Position Sitting 02 Sat by Pulse Oximetry Oxygen Delivery Method Room Air Lab Data Lab Results 01/09/25 13:28: Urine Color Yellow, Urine Appearance Clear, Urine pH 7.0, Ur Specific [place] 1.025, Urine Protein Negative, Urine Glucose (UA) Negative, Urine Ketones Negative, Urine Blood Negative, Urine Nitrate Negative, Urine Bilirubin Negative, Urine Urobilinogen 0.2, Ur Leukocyte Esterase Trace, Urine RBC 3-5, Urine WBC 20-50, Ur Squamous Epith Cells 10-20, Urine Bacteria 3+, Urine Mucus 1+ 01/09/25 13:48: WBC 7.6, RBC 4.26, Hgb 12.7, Hct 38.0, MCV 89.2, MCH 29.8, MCHC 33.4, RDW 11.9, Plt Count 173, MPV 10.0, Neut % (Auto) 74.3, Lymph % (Auto) 16.4, [place] % (Auto) 7.3, Eos % (Auto) 1.6, Baso % (Auto) 0.1, Neut # (Auto) 5.6, Lymph # (Auto) 1.2, [place] # (Auto) 0.6, Eos # (Auto) 0.1, Baso # (Auto) 0.0, Sodium 139, Potassium 3.7, Chloride 107, Carbon Dioxide 29, Anion Gap 6.7, BUN 11, Creatinine 0.70, Estimated Creat Clear 85, Estimated GFR 90, Est GFR ( Amer) 109, Glucose 98, Lactate 0.9, Calcium 9.0, Total Bilirubin 0.5, AST 30, ALT 19, Alkaline Phosphatase 75, Total Protein 7.2, Albumin 4.3, Globulin 2.9, Albumin/Globulin Ratio 1.5, Lipase 99 Orders (Tests/Meds): ED MEDICATIONS Discontinued Medications Generic Name Dose Route Start Last Admin Trade Name Freq PRN Reason Stop Dose Admin Iopamidol 75 ml 01/09/25 14:16 01/09/25 14:17 Iopamidol-370 (76%);100ml Bottle IV 01/09/25 14:17 75 ml ONCE ONE Administration Morphine Sulfate 2 mg 01/09/25 13:36 01/09/25 13:56 Morphine 2mg/Ml Syringe IV 01/09/25 13:37 2 mg ONCE ONE Administration Ondansetron HCl 4 mg 01/09/25 13:37 01/09/25 13:55 Ondansetron 4mg/2ml Vial IV 01/09/25 13:38 4 mg ONCE ONE Administration Sodium Chloride 10 ml 01/09/25 14:16 01/09/25 14:17 Sodium Chloride 0.9% 10ml Syr (Rad Only) IV 01/09/25 14:17 10 ml ONCE ONE Administration ORDERS Category Date Time Status CT abdomen pelvis w con Stat Cat Scan 01/09/25 13:36 Completed Complete Blood Count Auto Diff Stat Lab 01/09/25 13:48 Completed Comprehensive Metabolic Panel Stat Lab 01/09/25 13:48 Completed Lactic Acid Stat Lab 01/09/25 13:48 Completed Lipase Stat Lab 01/09/25 13:48 Completed Urinalysis and Microscopic Stat Lab 01/09/25 13:28 Completed Urine Culture Stat Micro 01/09/25 13:28 Received Medical Decision Narrative: 49-year-old female presents the emergency department with abdominal pain that is localized to the right side, with nausea, constipation yesterday, no vomiting, differential diagnosis include but not limited to appendicitis, pancreatitis, bowel obstruction, ileus, pseudo colonic obstruction, volvulus, acute UTI, acute pyelonephritis, nephrolithiasis, ureterolithiasis, diverticulitis, urine cyst among others. I discussed this patient's case with attending physician Dr. Vickers Obtain basic laboratory studies, lactate level, lipase level urinalysis, CT abdomen pelvis with contrast, will give 2 mg IV morphine 4 mg of Zofran for nausea. CMP is unremarkable, lipase is within normal limits, there is no lactic acidosis. CBC unremarkable. Urinalysis is unremarkable, negative nitrites, leukocyte esterase. I reviewed the patient's CT and pelvis with contrast along the corresponding radiologic report, acute diverticulitis without definitive abscess. I discussed the results with the patient family bedside, recommend clear liquid diet, bowel rest, will prescribe ciprofloxacin 500 mg p.o. twice daily for 5 days, and Flagyl 500 mg p.o. Q8 for 5 days, for acute uncomplicated diverticulitis, patient will follow-up with GI doctor and PCP in the upcoming days/weeks, she will return emergency department any worsening signs or symptoms to include nausea vomiting, decreased p.o. intake, inability tolerate p.o. intake, worsening pain or fever or chills. Patient family understanding and agree with current treatment plan/discharge plan. I was consulted by the B[facility], and we discussed the complexity of the problems being addressed.I approved the treatment and management plan for this patient?s care in the Emergency Department, thus performing a substantive portion of the medical decision making.Signed, Janes Allison MD [facility] <CARO Seay - Last Filed: 01/09/25 16:27> Critical Care Time Critical Care Time: No
[2025-01-09] MEDS: ONDANSETRON 4MG/2ML VIAL 4 MG IV (13:55)
[2025-01-09] MEDS: MORPHINE 2MG/ML SYRINGE 2 MG IV (13:56)
[2025-01-09 13:58] LABS: Basophils % 0.1 % (0.1-2.0); Eosinophils # 0.1 Kmm3 (0.0-0.4); Eosinophils % 1.6 % (0.1-12.0); Hemoglobin 12.7 g/dL (12.2-16.2); Immature Granulocytes # 0.02 10^3uL; Immature Granulocytes % 0.3 %; Lymphocytes # 1.2 K/mm3 (0.7-4.5); Lymphocytes % 16.4 % (10-50); Mean Corpuscular HGB Conc 33.4 g/dL (31.8-35.4); Mean Corpuscular Hemoglobin 29.8 pg (27.0-31.2); Mean Corpuscular Volume 89.2 fl (81-99); Monocytes # 0.6 K/mm3 (0.1-1.0); Monocytes % 7.3 % (1.7-9.3); Neutrophils # 5.6 K/mm3 (1.8-7.8); Neutrophils % 74.3 % (37.0-80.0); Nucleated Red Blood Cells # 0 10^3/uL; Nucleated Red Blood Cells % 0 %; Platelet Count 173 K/mm3 (142-424); Red Blood Count 4.26 M/mm3 (4.20-5.40); Red Cell Distribution Width 11.9 % (11.5-17.5); White Blood Count 7.6 K/mm3 (4.8-10.8)
[2025-01-09 14:00] VITALS: BP 126/75; PULSE 75; RESP 18; O2SAT 99
[2025-01-09 14:03] LABS: Microscopic, Urine URINE MICROSCOPIC (MICROSCOPIC)
[2025-01-09 14:05] LABS: Appearance,Urine CLEAR (Clear); Bilirubin,Urine Negative (Negative); Blood, Urine Negative (Negative); Color,Urine YELLOW (Yellow); Glucose,Urine (UA) Negative (Negative); Ketones,Urine Negative (Negative); Leukocyte Esterase,Urine TRACE (Negative); Nitrate,Urine Negative (Negative); Protein,Urine Negative (Negative); Specific Gravity, Urine 1.025 (1.005-1.030); Urobilinogen,Urine 0.2 EU/dl (0.2)
[2025-01-09 14:06] LABS: Alanine Aminotransferase 19 U/L (12-78); Albumin Level 4.3 g/dl (3.5-5.0); Albumin/Globulin Ratio 1.5 (1.1-1.8); Alkaline Phosphatase 75 U/L (38-126); Anion Gap 6.7 mEq/L (5-15); Aspartate Amino Transferase 30 U/L (14-36); Bilirubin,Total 0.5 mg/dl (0.2-1.3); Blood Urea Nitrogen 11 mg/dl (7-17); Carbon Dioxide 29 mmol/L (22.0-30.0); Chloride 107 mmol/L (98-107); Creatinine Clearance Estimated 85 mL/min (50-200); Estimated Glomerular Filt Rate 90 ml/min (>60); GFR (African American) 109 ML/MIN (>60); Globulin 2.9 g/dL (1.3-3.2); Glucose 98 mg/dl (74-100); Lactic Acid 0.9 mmol/L (0.7-2.1); Lipase 99 U/L (23-300); Potassium 3.7 mmoL/L (3.5-5.1); Sodium 139 mmol/L (136-145); Total Protein,Serum 7.2 g/dl (6.3-8.2)
--- NOTE | 2025-01-09 14:10 | PC.NURSE ---
pt to rad at this time
[2025-01-09] MEDS: IOPAMIDOL-370 (76%);100ML BOTTLE 75 ML IV (14:17)
[2025-01-09] MEDS: SODIUM CHLORIDE 0.9% 10ML SYR (RAD ONLY) 10 ML IV (14:17)
[2025-01-09 14:30] VITALS: BP 127/81; PULSE 76; RESP 18; O2SAT 98
[2025-01-09 15:00] VITALS: BP 125/90; PULSE 20; RESP 18; O2SAT 100
[2025-01-09 15:30] VITALS: BP 109/71; PULSE 73; RESP 18; O2SAT 98
[2025-01-09 16:30] VITALS: BP 117/81; PULSE 80; RESP 16; TEMP 36.7; O2SAT 97
[2025-01-09 21:30] LABS: Bacteria,Urine 3+ /lpf; WBC,Urine 20-50 #/hpf (0-3)
[2025-01-09 21:31] LABS: Mucus,Urine 1+ /lpf
== END 2025-01-09 16:38 | disposition home or self-care (01) ==
PROVIDERS: Physician Assistant; Emergency Provider Emergency Medicine; PCP Family Medicine
DX: K57.32 Diverticulitis of large intestine without perforation or abscess without bleeding (principal); R10.11 Right upper quadrant pain; R10.31 Right lower quadrant pain; R11.0 Nausea
CPT/HCPCS: 74177; 80053; 81001; 83605; 83690; 85025; 87086; 96374; 96375; 99285; J2270; J2405; Q9967

== ENCOUNTER 2025-06-11 11:30 | Day surgery (SDC) | payer BC, SELFPAY ==
[2025-06-06 09:57] VITALS: BMI 21.9
--- NOTE | 2025-06-08 15:42 | EXP.HP ---
History of Present Illness *Admission Date: 06/11/25 *History of present illness: Mrs. Huber is a 49-year-old female who is here for diagnostic colonoscopy. The patient did go to the ED in December 2024 with acute uncomplicated diverticulitis and was discharged with antibiotics (ciprofloxacin and Flagyl) and had resolution of lower abdominal pain after course of antibiotics. The patient did have a colonoscopy with Dr. Steve Mccain MD ([facility]) in December 2022 and had pandiverticulosis and some internal hemorrhoids but no polyps. The patient does have some chronic constipation and may skip 2 or 3 days without a bowel movement. Sometimes she will have some straining even with a soft bowel movement and does not feel as if she fully evacuates. She has noted some mucus with her bowel movements and recently had a prolapsed hemorrhoid. She did notice some blood. The examination is deemed medically necessary for diagnostic colonoscopy. The patient has been seen, interviewed and examined prior to the procedure by both myself and the anesthesia provider. [facility] Disclaimer: The information contained in this section may have been updated after the patient was seen, as this information can be updated by other users. Medical History Strep throat Sinusitis Superior labrum ctcohcqs-dd-fybnjmrog (SLAP) tear of right shoulder Surgical History Hx of colonoscopy H/O shoulder surgery History of bladder surgery History of partial hysterectomy [place] teeth extracted Family History Brother Cancer Asthma Father Cancer Other Diabetes Hypertension Skin cancer Social History (Updated 06/11/25 @ 12:09 by Chris Delgado CRNA) Smoking Status: Never smoker second hand exposure: No alcohol intake: never substance use type: denies use current occupational status: employed Travel in the last 8 weeks?: None housing: house Have you lived/traveled outside US in past 30 days?: No Contact w/someone who lives/traveled outside US past 30 days?: No Exposure to someone with infectious disease in past 14 days?: No Do you have a fever (greater than 100.4 F or 38 C)?: No Have you tested positive for COVID-19?: No Exposed to someone with COVID-19 in past 14 days?: No Do you have a sore throat?: No Do you have a cough?: No Do you have any weakness?: No Do you have any diarrhea?: No Are you experiencing any unusual bleeding?: No Do you have any muscle aches/pain?: No Do you have any abdominal pain?: No Are you experiencing loss of taste or smell?: No Other Medical History Have you received the Pneumonia Vaccine: No Review of Systems Review of Systems Review of systems (narrative): Negative *Cardiovascular Comments: Negative *Gastrointestinal Comments: Negative *Genitourinary Comments: Negative *Musculoskeletal Comments: Negative *Neurologic Comments: Negative Meds Home Medications and Allergies Home Medications ?Medication ?Instructions ?Recorded ?Confirmed ?Type No Known Home Medications 06/11/25 06/11/25 History New Prescriptions to Start Prescriptions: Allergies Allergy/AdvReac Type Severity Reaction Status Date / Time No Known Allergies Allergy Verified 06/11/25 11:56 Exam Data for Last 24 hours I & O for Last 24 hours: Intake & Output 06/05/25 06/06/25 06/07/25 06/08/25 23:59 23:59 23:59 23:59 Weight 124 lb *Routine HEENT Exam Head: Present normocephalic Eye: Present EOMI and PERRL ENT: Present mucous membranes moist *Routine Neck Exam Neck: Present supple *Routine Respiratory Exam Respiratory: Present CTA bilaterally *Routine Cardiovascular Exam Cardiovascular: Present RRR *Routine Abdominal Exam Abdominal: Present soft and normoactive bowel sounds; Absent tenderness *Routine Rectal Exam Rectal:: deferred *Routine Genitalia Exam Genitalia:: deferred *Routine Extremities Exam Extremities: Absent cyanosis, clubbing or edema *Routine Skin Exam Skin: Present warm; Absent rash *Routine Neurological Exam Neurological: Present alert and oriented X3 Assessment and Plan *Assessment and plan (1) Chronic constipation: Status: Acute Category: Medical Code(s): K59.09 - Other constipation (2) Acute diverticulitis: Status: Acute Category: Medical Code(s): K57.92 - Diverticulitis of intestine, part unspecified, without perforation or abscess without bleeding (3) Hemorrhoids: Status: Acute Category: Medical Code(s): K64.9 - Unspecified hemorrhoids (4) Blood in stool: Status: Acute Category: Medical Code(s): K92.1 - Melena (5) Flatulence: Status: Acute Category: Medical Code(s): R14.3 - Flatulence Plan A/P: 1. Acute diverticulitis (uncomplicated) in December 2024 with ongoing constipation and new onset of blood presumably secondary to hemorrhoids is the preprocedural diagnosis. The patient will be anesthetized/sedated using MAC sedation. The patient has been seen and examined. Cardiac and lung assessment prior to the examination is stable. Proceed with planned diagnostic colonoscopy.
--- NOTE | 2025-06-11 07:05 | P.PCN_ITS ---
[facility] Procedure Note Date: 06/11/25 Time: 13:17 Procedure Note:: Colonoscopy Procedure Report: Colonoscopy with monopolar ablation/coagulation of internal hemorrhoids Endoscopist: Joel Cooper II, MD Referring physician: Cuauhtemoc Renteria MD Date of Procedure: June 11, 2025 Equipment: Olympus [id number] adult colonoscope Sedation: MAC sedation Indication: Mrs. Huber is a 49-year-old female who is here for diagnostic colonoscopy. About 3 months ago, the patient did have hematochezia/bright red rectal bleeding that occurred 4 times on the same day and filled the commode. The patient had previously gone to the ED in December 2024 with acute uncomplicated diverticulitis and was discharged with antibiotics (ciprofloxacin and Flagyl) and had resolution of lower abdominal pain after course of antibiotics. The patient did have a colonoscopy with Dr. Steve Mccain MD ([facility]) in December 2022 and had pandiverticulosis and some internal hemorrhoids but no polyps. The patient does have some chronic constipation and may skip 2 or 3 days without a bowel movement. Sometimes she will have some straining even with a soft bowel movement and does not feel as if she fully evacuates. The patient is presently not taking a fiber bowel regimen. She reports no unin tentional weight loss or family history of colon cancer. The examination is deemed medically necessary for diagnostic colonoscopy. Procedure: Prior to the procedure, a history and physical exam was performed, and patient's medications and allergies were reviewed. The risks, benefits and alternatives of the sedation and procedure were discussed with the patient. All questions were answered and informed consent was obtained. The patient was brought to the procedure room. Patient identification and proposed procedure were verified by the physician and the nurse. The patient was placed in a left lateral decubitus position and the scope was passed under direct vision. Throughout the procedure, the patient's blood pressure, pulse, and oxygen saturations were monitored continuously. The colonoscopy was accomplished without difficulty. The patient tolerated the procedure well. Findings: On digital rectal examination there was normal rectal tone. There were no external hemorrhoids. The colonoscope was introduced through the anal canal to the rectum and advanced to the cecum. The ileocecal valve and appendiceal orifice were identified. The scope was advanced a short distance into the ileum which appeared grossly normal. The scope was then withdrawn into the colon. The cecum, ascending and transverse colon and mucosa were grossly normal. There were scattered diverticuli throughout the descending and sigmoid colon (LEFT colon). The rectum itself was normal. Upon retroflexion within the rectum there were grade 1-2 internal hemorrhoids. The columns of hemorrhoids were abla emma/coagulated using monopolar ablation/coagulation. The preparation was excellent throughout with [place] Preparation Score of 9. The cecal time was 11 minutes. Impression: 1. Left-sided diverticulosis 2. Grade 1-2 internal hemorrhoids status post monopolar ablation/coagulation Plan: I would encourage a fiber bowel regimen on a long-term daily maintenance basis.
[2025-06-11 11:58] VITALS: BP 118/89; PULSE 67; RESP 18; TEMP 36.4; O2SAT 100
--- NOTE | 2025-06-11 12:07 | P.PNANES_ITS ---
[facility] Disclaimer: The information contained in this section may have been updated after the patient was seen, as this information can be updated by other users. Medical History Strep throat Sinusitis Superior labrum gzmnbkur-ue-demboujcs (SLAP) tear of right shoulder Surgical History Hx of colonoscopy H/O shoulder surgery History of bladder surgery History of partial hysterectomy [place] teeth extracted Family History Brother Cancer Asthma Father Cancer Other Diabetes Hypertension Skin cancer Social History Smoking Status: Never smoker second hand exposure: No alcohol intake: never substance use type: denies use current occupational status: employed Travel in the last 8 weeks?: None housing: house [facility] Anesthesia Checklist Patient Identification Patient Identification: Arm Band and Verbal (Name & ) Structural Data Admitted From: Home Planned Operative Procedure/s: Colonoscopy Consent for Planned Operative Procedure(s) Verified: Yes Verified Documents: Surgical Consent NPO Status Verified Time NPO: 00:00 Chart Verification Results Verified: None Additional verifications Patient : No Anesthesia Reactions: No Airway Assessment Mallampati Score:: Class II C-Spine Mobility Assessed: Yes TMJ Mobility Assessed: Yes Dentition: Good Dentition Neurological Assessment Level of Consciousness: Awake, Alert and Appropriate Hx Seizures: No Numbness or tingling in extremities: No Anesthesia Plan Anesthesia Risk discussed: Yes Anesthesia Plan: Verified ASA Class: II Anesthesia Type: MAC
[2025-06-11 13:19] VITALS: BP 95/58; PULSE 83; RESP 18; TEMP 36.1; O2SAT 96
[2025-06-11 13:29] VITALS: BP 112/68; PULSE 69; O2SAT 98
[2025-06-11 13:39] VITALS: BP 100/70; PULSE 62; O2SAT 100
== END 2025-06-11 13:49 | disposition home or self-care (01) ==
PROVIDERS: PCP Family Medicine; Visit Provider Internal Medicine Gastroenterology
PROC: 0DJD8ZZ Inspection of Lower Intestinal Tract, Via Natural or Artificial Opening Endoscopic (ICD-10-PCS; CPT 45378; principal; 2025-06-11 13:00)
DX: K57.30 Diverticulosis of large intestine without perforation or abscess without bleeding (principal); K64.0 First degree hemorrhoids; K64.1 Second degree hemorrhoids; K59.09 Other constipation; K57.92 Diverticulitis of intestine, part unspecified, without perforation or abscess without bleeding; K64.9 Unspecified hemorrhoids; K92.1 Melena; Z90.710 Acquired absence of both cervix and uterus
CPT/HCPCS: 45388; J2003; J2704

== ENCOUNTER 2025-07-10 09:59 | Emergency (ER) | payer BC, SELFPAY ==
[2025-07-10] VITALS (7 sets, daily range): BP systolic 116–135; BP diastolic 77–96; PULSE 85–98; RESP 16; TEMP 37; O2SAT 98–100; BMI 22.1
--- NOTE | 2025-07-10 10:00 | HMH.EDGENADL ---
Discharge Plan Disposition Chief Complaint: Nausea/Vomiting/Diarrhea Prescriptions Prescriptions: No Action No Known Home Medications Referrals Follow up/Referrals: Cuauhtemoc Renteria MD [Primary Care Provider, Medical] - See instructions Instructions Patient Instructions: DI for Diarrhea and Traveler's Diarrhea in Adults, DI for Diarrhea and Traveler's Diarrhea in Children, DI for Nausea in Adults, DI for Nausea in Children Print Language Print Language: Yakut Discharge ED Provider: Anderson Vickers General Adult HPI General Chief complaint: Nausea/Vomiting/Diarrhea Stated complaint: chest tightness Time Seen by Provider: 07/10/25 10:00 Related Data Home Medications ?Medication ?Instructions ?Recorded ?Confirmed No Known Home Medications 06/11/25 06/11/25 Allergies Allergy/AdvReac Type Severity Reaction Status Date / Time No Known Allergies Allergy Verified 06/11/25 11:56 [facility] Disclaimer: The information contained in this section may have been updated after the patient was seen, as this information can be updated by other users. Medical History Strep throat Sinusitis Superior labrum njisncsb-za-gegashgma (SLAP) tear of right shoulder Surgical History Hx of colonoscopy H/O shoulder surgery History of bladder surgery History of partial hysterectomy [place] teeth extracted Family History Brother Cancer Asthma Father Cancer Other Diabetes Hypertension Skin cancer Social History (Updated 06/11/25 @ 12:09 by Chris Delgado CRNA) Smoking Status: Never smoker second hand exposure: No alcohol intake: never substance use type: denies use current occupational status: employed Travel in the last 8 weeks?: None housing: house Have you lived/traveled outside US in past 30 days?: No Contact w/someone who lives/traveled outside US past 30 days?: No Exposure to someone with infectious disease in past 14 days?: No Do you have a fever (greater than 100.4 F or 38 C)?: No Have you tested positive for COVID-19?: No Exposed to someone with COVID-19 in past 14 days?: No Do you have a sore throat?: No Do you have a cough?: No Do you have any weakness?: No Do you have any diarrhea?: No Are you experiencing any unusual bleeding?: No Do you have any muscle aches/pain?: No Do you have any abdominal pain?: No Are you experiencing loss of taste or smell?: No Other Medical History Have you received the Pneumonia Vaccine: No Medical Decision Making Medical Records Screening: Per USPSTF and CDC recommendations, given the prevalence of disease in our region, it is our hospital?s policy to screen for HIV and viral Hepatitis for all patients aged 18 and over and those with ongoing risk factors. Ravinder Inquiry Pt receiving controlled substance: No Vital Signs: 07/10/25 10:02 Temperature 98.6 F Temperature Source Oral Pulse Rate [Right Radial] 85 Respiratory Rate 16 Blood Pressure [Right Arm] 135/96 H Blood Pressure Mean [Right Arm] 109 Blood Pressure Source [Right Arm] Automatic Cuff Blood Pressure Position [Right Arm] Supine 02 Sat by Pulse Oximetry 100 Oxygen Delivery Method Room Air Orders (Tests/Meds): ED MEDICATIONS Generic Name Dose Route Start Last Admin Trade Name Freq PRN Reason Stop Dose Admin Sodium Chloride 500 mls @ 500 mls/hr 07/10/25 10:14 Sod Chloride 0.9% 500ml Bag IV 07/10/25 11:13 .Q1H BEL Sodium Chloride 10 ml 07/10/25 10:10 Sodium Chloride 0.9% 10ml Flush Syringe IV 08/09/25 10:09 NEEDED PRN Maintain IV Site Discontinued Medications Generic Name Dose Route Start Last Admin Trade Name Freq PRN Reason Stop Dose Admin Aspirin 324 mg 07/10/25 10:10 Aspirin 81mg Chewable Tablet PO 07/10/25 10:11 ONCE ONE Morphine Sulfate 2 mg 07/10/25 10:10 Morphine 2mg/Ml Syringe IV 07/10/25 10:11 ONCE ONE Ondansetron HCl 4 mg 07/10/25 10:10 Ondansetron 4mg/2ml Vial IV 07/10/25 10:11 ONCE ONE ORDERS Category Date Time Status CT abdomen pelvis w con Stat Cat Scan 07/10/25 10:15 Ordered CXR --portable [XR chest portable] Stat Exams 07/10/25 10:12 Ordered BNP [NT Pro Brain Natriuretic Pep.] Stat Lab 07/10/25 10:07 Received CBC w/Auto Diff [Complete Blood Count Auto Diff] Stat Lab 07/10/25 10:07 Received CMP [Comprehensive Metabolic Panel] Stat Lab 07/10/25 10:07 Received Diarrhea 23 Panel, PCR Stat Lab 07/10/25 10:19 Received HIV Combo Stat Lab 07/10/25 10:07 Received Hepatitis C Ab Qual. W/ RFX Stat Lab 07/10/25 10:07 Received Magnesium Stat Lab 07/10/25 10:07 Received Phosphorous Stat Lab 07/10/25 10:07 Received Troponin I Q3H Lab 07/10/25 13:15 Ordered Troponin I Q3H Lab 07/10/25 16:15 Ordered Troponin I Stat Lab 07/10/25 10:07 Received UA [Urinalysis and Microscopic] Stat Lab 07/10/25 10:19 Received ECG Data Tracing #1: I reviewed this ECG and interpreted as documented below: Normal sinus rhythm with no obvious acute ischemic ST change and intervals are within normal limits
--- NOTE | 2025-07-10 10:02 | ECG_ITS ---
APPROVED REPORT Exam: Resting ECG HR:78 bpm ECG Measurements Heart Rate 78 AXES VA 150 P 64 QRSd 76 QRS 55 QT 372 T 73 QTc 406 Conclusion SINUS RHYTHM NORMAL ECG Electronically signed by : LOLIS MORALES, 07/12/2025 03:12:56
--- NOTE | 2025-07-10 10:11 | PC.NURSE ---
Pt ambulatory to bathroom to provide urine sample and stool sample
--- NOTE | 2025-07-10 10:12 | XR_ITS ---
PROCEDURE INFORMATION: Exam: XR Chest Exam date and time: 07/10/2025 10:58 AM Age: 49 years old Clinical indication: Pain; Shortness of breath; Chest pressure and other: Cp; Additional info: Chest congestion TECHNIQUE: Imaging protocol: Radiologic exam of the chest. Views: 1 view. COMPARISON: CT ABDOMEN PELVIS W CON 07/10/2025 10:53 AM FINDINGS: Lungs: Unremarkable. No consolidation. Pleural spaces: Unremarkable. No pleural effusion. No pneumothorax. Heart/Mediastinum: Unremarkable. No cardiomegaly. Bones/joints: Unremarkable. IMPRESSION: No acute findings.
--- NOTE | 2025-07-10 10:15 | CT_ITS ---
PROCEDURE INFORMATION: Exam: CT Abdomen And Pelvis With Contrast Exam date and time: 07/10/2025 10:53 AM Age: 49 years old Clinical indication: Abdominal pain; Epigastric; Additional info: Epigastric and umbilical pain; +n/v/d this am TECHNIQUE: Imaging protocol: Computed tomography of the abdomen and pelvis with contrast. Radiation optimization: All CT scans at this facility use at least one of these dose optimization techniques: automated exposure control; mA and/or kV adjustment per patient size (includes targeted exams where dose is matched to clinical indication); or iterative reconstruction. Contrast material: ISOVUE; Contrast volume: 75 ml; Contrast route: IV; COMPARISON: CT ABDOMEN PELVIS W CON 01/09/2025 2:14 PM FINDINGS: Liver: Hypodensities less than 1 cm in the liver are too small to accurately characterize. Gallbladder and biliary ducts: Normal. No calcified stones. No ductal dilation. Pancreas: Enhancing mass measuring 2.4 cm in the tail of the pancreas shows characteristics similar to the spleen. Spleen: Unremarkable. Adrenal glands: Normal. No mass. Kidneys and ureters: Normal. No hydronephrosis. Stomach and bowel: Unremarkable. No obstruction. No mucosal thickening. Appendix: No evidence of appendicitis. Intraperitoneal space: No evidence of free air in the abdomen. Vasculature: Unremarkable. No abdominal aortic aneurysm. Lymph nodes: Unremarkable. No enlarged lymph nodes. Urinary bladder: Unremarkable as visualized. Reproductive: Unremarkable as visualized. Bones/joints: Unremarkable. No acute fracture. Soft tissues: Unremarkable. 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 Malignancy is not entirely excluded. Confirmation can be obtained with MRI abdomen and pelvis.
--- NOTE | 2025-07-10 10:16 | ED_ITS ---
<Statement entered by Anderson Vickers MD - 07/10/25 15:47> Normal sinus rhythm with no obvious acute ischemic ST change and intervals are within normal limits. I independently interpreted her cross-sectional imaging to demonstrate no evidence of bowel obstruction. Likely enteritis with fluid-filled bowel diffusely. No other acute abnormality. I examined the patient. Her abdomen is soft, mildly diffusely tender without any focality. She is tolerating oral intake. Has positive sick contacts at home with similar symptoms, likely viral gastroenteritis. Multimodal pain control and oral rehydration at home. Return precautions discussed. I was consulted by the BIRGIT, and we discussed the complexity of problems being addressed. I approved the treatment and management plan for this patient's care in the emergency department, thus performing a substantial portion of the medical decision making. Anderson Vickers MD Discharge Plan Disposition Patient Disposition: Home, Self-Care Condition: Good Prescriptions Prescriptions: New dicyclomine 10 mg capsule 10 mg PO TID Qty: 20 0RF ondansetron 4 mg tablet,disintegrating 4 mg PO Q8H PRN (Reason: nausea and vomiting) Qty: 20 0RF Referrals Follow up/Referrals: Cuauhtemoc Renteria MD [Primary Care Provider, Medical] - See instructions Activity Restrictions/Add. Instructions Additional Instructions/Restrictions: Medications for nausea and vomiting and abdominal cramping have been sent to your pharmacy of choice. Please take these as directed as needed. Please continue to take dclj-xga-tgjjcbz medications such as Tylenol and ibuprofen for aches, pains, and fever. Please stay well-hydrated with sugar-free sports drinks, Pedialyte, or other nonsugar beverages. Follow-up with your primary care provider to discuss this diagnosis and today's ED visit, as well as incidental findings from CT scan that may need a follow-up scan. Return to the emergency department with any worsening of current symptoms such as nausea and vomiting that is not controlled with the medication, worsening diarrhea with fever, or any other emergent medical complaint or concern. Clinical Impressions Clinical Impression: Gastroenteritis, Acute epigastric pain Nausea and vomiting Qualifiers: Vomiting type: unspecified Qualified Code(s): R11.2 - Nausea with vomiting, unspecified Instructions Patient Instructions: DI for Nausea in Adults, DI for Nausea in Children Print Language Print Language: Armenian Discharge ED Provider: Anderson Vickers [facility] General Chief Complaint: Nausea/Vomiting/Diarrhea Stated Complaint: chest tightness Time Seen by Provider: 07/10/25 10:00 Mode of Arrival: Ambulatory Source of Information: Patient Description of Symptoms (Recalled from ER Triage Doc. by RN): patient states around 7AM she began having chest tightness in the center of her chest with nausea vomiting dizziness lightheaded diarrhea bodyaches and low back pain. she took a zofran that has not gave her any relief. 10/09 chest tightness History of Present Illness HPI narrative: Patient is a pleasant 49-year-old female who presents to the emergency department with complaints of chest tightness since this morning. Patient states that when she woke at approximately 7 AM she noticed some general tightness through her chest, with pain focused in her middle and lower chest. States the pain in the bottom of her chest does radiate into her lower back. Patient states that this morning she has been nauseous, vomited once and states she does not know if it was bloody, and has had loose stool. Denies any recent fever or other illness or new diagnosis and denies other complaints unaddressed above; denies headache, shortness of breath. Related Data Previous Rx's ?Medication ?Instructions ?Recorded dicyclomine 10 mg capsule 10 mg PO TID #20 caps ondansetron 4 mg disintegrating 4 mg PO Q8H PRN nausea and 07/10/25 tablet vomiting #20 tabs Allergies Allergy/AdvReac Type Severity Reaction Status Date / Time No Known Allergies Allergy Verified 06/11/25 11:56 [facility] Disclaimer: The information contained in this section may have been updated after the patient was seen, as this information can be updated by other users. Medical History (Updated 07/10/25 @ 11:44 by CARO Bay) Strep throat Sinusitis Superior labrum tfymvwhf-fl-ulvjwwssx (SLAP) tear of right shoulder Surgical History Hx of colonoscopy H/O shoulder surgery History of bladder surgery History of partial hysterectomy [place] teeth extracted Family History Brother Cancer Asthma Father Cancer Other Diabetes Hypertension Skin cancer Social History (Updated 06/11/25 @ 12:09 by Chris Delgado CRNA) Smoking Status: Never smoker second hand exposure: No alcohol intake: never substance use type: denies use current occupational status: employed Travel in the last 8 weeks?: None housing: house Have you lived/traveled outside US in past 30 days?: No Contact w/someone who lives/traveled outside US past 30 days?: No Exposure to someone with infectious disease in past 14 days?: No Do you have a fever (greater than 100.4 F or 38 C)?: No Have you tested positive for COVID-19?: No Exposed to someone with COVID-19 in past 14 days?: No Do you have a sore throat?: No Do you have a cough?: No Do you have any weakness?: No Do you have any diarrhea?: No Are you experiencing any unusual bleeding?: No Do you have any muscle aches/pain?: No Do you have any abdominal pain?: No Are you experiencing loss of taste or smell?: No Other Medical History Have you received the Pneumonia Vaccine: No ROS Obtained: Yes Systems reviewed as appropriate & no additional complaints except as documented Physical Exam General General appearance: alert and in no apparent distress Head Head exam: atraumatic and normocephalic Eye Eye exam: Present normal appearance, PERRL and EOMI Neck Neck exam: Present normal inspection, full ROM and trachea midline Chest Chest inspection: Present normal inspection and symmetric chest wall rise; Absent tenderness Respiratory Respiratory exam: Present normal lung sounds bilaterally; Absent respiratory distress, wheezes or stridor Cardiovascular Cardiovascular exam: Present regular rate, normal rhythm and normal heart sounds; Absent irregular rhythm or systolic murmur Abdominal Exam Abdominal exam: Present soft, tenderness and normal bowel sounds; Absent distention Abdominal tenderness: Present epigastrium, suprapubic and severe (Pain in epigastric, umbilical, and suprapubic regions with palpation) Extremities Exam Extremities exam: Present normal inspection, full ROM and normal capillary refill Back Exam Back exam: Present tenderness Neurological Exam Neurological exam: Present alert and oriented X3; Absent motor sensory deficit Psychiatric Psychiatric exam: Present normal affect and normal mood Skin Skin exam: Present warm, dry and normal color HEART Score HEART Score HEART Score assessment performed?: Yes History (anamnesis): Slightly suspicious ECG: Normal Age: 45-65 years Risk factors: 1-2 risk factors Troponin: </= normal limit HEART Score: 2 Critical Care Critical Care Time Critical Care Time: No Medical Decision Making Medical Records Medical records reviewed: Yes I reviewed the patient's medical records. Ravinder Inquiry Pt receiving controlled substance: No Vital Signs Vital Signs: 07/10/25 10:02 07/10/25 10:33 07/10/25 11:02 Temperature 98.6 F Temperature Source Oral Pulse Rate 89 91 H Pulse Rate [Orthostatic Lying Left] Pulse Rate [Orthostatic Sitting Right] Pulse Rate [Orthostatic Standing Right] Pulse Rate [Right Radial] 85 Respiratory Rate 16 Blood Pressure 123/84 127/81 Blood Pressure [Orthostatic Lying Left Arm] Blood Pressure [Orthostatic Sitting Left Arm] Blood Pressure [Orthostatic Standing Left Arm] Blood Pressure [Right Arm] 135/96 H Blood Pressure Mean [Right Arm] 109 Blood Pressure Source [Right Arm] Automatic Cuff Blood Pressure Position [Right Arm] Supine 02 Sat by Pulse Oximetry 100 100 98 Oxygen Delivery Method Room Air Room Air Room Air 07/10/25 11:03 07/10/25 11:04 07/10/25 11:06 Temperature Temperature Source Pulse Rate 85 89 Pulse Rate [Orthostatic Lying Left] 89 Pulse Rate [Orthostatic Sitting Right] 85 Pulse Rate [Orthostatic Standing Right] 88 Pulse Rate [Right Radial] Respiratory Rate Blood Pressure 123/81 116/77 Blood Pressure [Orthostatic Lying Left Arm] 127/81 Blood Pressure [Orthostatic Sitting Left Arm] 123/81 Blood Pressure [Orthostatic Standing Left Arm] 116/77 Blood Pressure [Right Arm] Blood Pressure Mean [Right Arm] Blood Pressure Source [Right Arm] Blood Pressure Position [Right Arm] 02 Sat by Pulse Oximetry 99 98 Oxygen Delivery Method Room Air Room Air Lab Data Lab results reviewed: Yes I reviewed the patient's lab results. Labs: Lab Results 07/10/25 10:07: WBC 8.0, RBC 4.87, Hgb 15.1, Hct 43.6, MCV 89.5, MCH 31.0, MCHC 34.6, RDW 11.7, Plt Count 176, MPV 9.8, Neut % (Auto) 90.4 H, Lymph % (Auto) 4.6 L, Aurora % (Auto) 3.8, Eos % (Auto) 0.8, Baso % (Auto) 0.1, Neut # (Auto) 7.2, L ymph # (Auto) 0.4 L, Aurora # (Auto) 0.3, Eos # (Auto) 0.1, Baso # (Auto) 0.0, Sodium 141, Potassium 4.1, Chloride 105, Carbon Dioxide 23, Anion Gap 17.1 H, BUN 14, Creatinine 0.60, Estimated Creat Clear 104, Estimated GFR 107, Est GFR ( Amer) 130, Glucose 111 H, Calcium 9.3, Phosphorus 2.2 L, Magnesium 1.9, Total Bilirubin 0.8, AST 45 H, ALT 37, Alkaline Phosphatase 92, Troponin I < 0.01, NT-Pro-B Natriuret Pep 46.6, Total Protein 8.4 H, Albumin 4.9, Globulin 3.5 H, Albumin/Globulin Ratio 1.4, Lipase 75, HCV Ab ALBERTO w/Rflx PCR Qn Negative, HIV Ag/Ab Combo Qual Negative 07/10/25 10:19: Urine Color Yellow, Urine Appearance Clear, Urine pH 6.5, Ur Specific Champion 1.020, Urine Protein Negative, Urine Glucose (UA) Negative, Urine Ketones 1+, Urine Blood Negative, Urine Nitrate Negative, Urine Bilirubin Negative, Urine Urobilinogen 1.0, Ur Leukocyte Esterase Negative, Urine RBC None, Urine WBC None, Ur Squamous Epith Cells None, Urine Bacteria Trace 07/10/25 10:07 07/10/25 10:07 Response Orders (Tests/Meds): ED MEDICATIONS Generic Name Dose Route Start Last Admin Trade Name Freq PRN Reason Stop Dose Admin Sodium Chloride 10 ml 07/10/25 10:10 Sodium Chloride 0.9% 10ml Flush Syringe IV 08/09/25 10:09 NEEDED PRN Maintain IV Site Discontinued Medications Generic Name Dose Route Start Last Admin Trade Name Freq PRN Reason Stop Dose Admin Aspirin 324 mg 07/10/25 10:10 07/10/25 10:25 Aspirin 81mg Chewable Tablet PO 07/10/25 10:11 324 mg ONCE ONE Administration Sodium Chloride 500 mls @ 500 mls/hr 07/10/25 10:14 07/10/25 11:30 Sod Chloride 0.9% 500ml Bag IV 07/10/25 11:13 Infused .Q1H BEL Infusion Iopamidol 75 ml 07/10/25 10:55 07/10/25 10:56 Iopamidol-370 (76%);100ml Bottle IV 07/10/25 10:56 75 ml ONCE ONE Administration Morphine Sulfate 2 mg 07/10/25 10:10 07/10/25 10:25 Morphine 2mg/Ml Syringe IV 07/10/25 10:11 2 mg ONCE ONE Administration Ondansetron HCl 4 mg 07/10/25 10:10 07/10/25 10:25 Ondansetron 4mg/2ml Vial IV 07/10/25 10:11 4 mg ONCE ONE Administration Sodium Chloride 10 ml 07/10/25 10:55 07/10/25 10:56 Sodium Chloride 0.9% 10ml Syr (Rad Only) IV 07/10/25 10:56 10 ml ONCE ONE Administration ORDERS Category Date Time Status CT abdomen pelvis w con Stat Cat Scan 07/10/25 10:15 Completed CXR --portable [XR chest portable] Stat Exams 07/10/25 10:12 Completed US gallbladder Stat Exams 07/10/25 11:23 Stop Req BNP [NT Pro Brain Natriuretic Pep.] Stat Lab 07/10/25 10:07 Completed CBC w/Auto Diff [Complete Blood Count Auto Diff] Stat Lab 07/10/25 10:07 Results CMP [Comprehensive Metabolic Panel] Stat Lab 07/10/25 10:07 Completed Diarrhea 23 Panel, PCR Stat Lab 07/10/25 10:19 Received Full Resp Panel w/COVID ([facility]) Routine Lab 07/10/25 10:02 Received HIV Combo Stat Lab 07/10/25 10:07 Completed Hepatitis C Ab Qual. W/ RFX Stat Lab 07/10/25 10:07 Completed Lipase Stat Lab 07/10/25 10:07 Completed Magnesium Stat Lab 07/10/25 10:07 Completed Phosphorous Stat Lab 07/10/25 10:07 Completed Troponin I Stat Lab 07/10/25 10:07 Completed UA [Urinalysis and Microscopic] Stat Lab 07/10/25 10:19 Completed MDM Narrative Medical Decision Narrative: In summary patient is an 49-year-old female who presents to the emergency department for evaluation of epigastric pain with chest tightness, nausea, vomiting, and loose stool. Patient is hemodynamically stable upon arrival, afebrile. Patient has tenderness to direct palpation in epigastric and umbilical regions with mild generalized tenderness throughout abdomen. Otherwise patient physical exam unremarkable. Differential diagnosis includes ACS, pancreatitis, SBO. Initial workup will be conducted with abdominal CT, chest x-ray, EKG, and labs. Initial interventions include 500 mL normal saline bolus, 325 mg chewable aspirin, and IV Zofran. Initial workup reviewed by me patient labs are generally unremarkable with no significant electrolyte derangement, kidney injury, or transaminitis on CMP, no significant leukocytosis or anemia on CBC, with troponin, BNP, lipase, mag, Phos, and urine all within normal limits/negative. Upon repeat evaluation patient still had mild tenderness to abdominal palpation but states that it had lessened after administration of pain and nausea medication during ED course. Otherwise patient exam is unchanged; she is alert and oriented, nontoxic and afebrile, with GCS 15. Given this, patient is appropriate for discharge at this time. Plan of care will be to discharge with Bentyl and Zofran and instructions to contact your primary care provider for follow-up. Patient verbalized understanding of and is amenable to this plan of care. Return precautions discussed and discharge instructions. I informally interpreted the patient's EKG as sinus rhythm with PVCs anemia and the chest x-ray is unremarkable with no concerning findings.
[2025-07-10 10:18] LABS: Hematocrit 43.6 % (37.0-47.0); Hemoglobin 15.1 g/dL (12.2-16.2); Immature Granulocytes % 0.3 %; Mean Corpuscular HGB Conc 34.6 g/dL (31.8-35.4); Mean Corpuscular Hemoglobin 31.0 pg (27.0-31.2); Mean Corpuscular Volume 89.5 fl (81-99); Nucleated Red Blood Cells % 0 %; Platelet Count 176 K/mm3 (142-424); Red Blood Count 4.87 M/mm3 (4.20-5.40); Red Cell Distribution Width-SD 37.8 fL; White Blood Count 8.0 K/mm3 (4.8-10.8)
[2025-07-10 10:24] LABS: Adenovirus F 40/41, stool Not Detected (NotDetected); Clostridium Difficile A/B, PCR Not Detected (NotDetected); Cyclospora Cayetanesis Not Detected (NotDetected); Microscopic, Urine URINE MICROSCOPIC (MICROSCOPIC); Plesimonas Shigalloides, PCR Not Detected (NotDetected); Salmonella, PCR Not Detected (NotDetected); Shiga-like toxin E coli Not Detected (NotDetected); Shigella Enterovasive E coli Not Detected (NotDetected); Vibrio, PCR Not Detected (NotDetected); Yersinia Entercolitica, PCR Not Detected (NotDetected)
[2025-07-10] MEDS: MORPHINE 2MG/ML SYRINGE 2 MG IV (10:25)
[2025-07-10] MEDS: ASPIRIN 81MG CHEWABLE TABLET 324 MG PO (10:25)
[2025-07-10] MEDS: 0.9 % SODIUM CHLORIDE 500 ML IV (10:25)
[2025-07-10] MEDS: ONDANSETRON 4MG/2ML VIAL 4 MG IV (10:25)
[2025-07-10 10:33] LABS: Alanine Aminotransferase 37 U/L (12-78); Albumin Level 4.9 g/dl (3.5-5.0); Albumin/Globulin Ratio 1.4 (1.1-1.8); Alkaline Phosphatase 92 U/L (38-126); Anion Gap 17.1 mEq/L (5-15); Aspartate Amino Transferase 45 U/L (14-36); Bilirubin,Total 0.8 mg/dl (0.2-1.3); Blood Urea Nitrogen 14 mg/dl (7-17); Calcium 9.3 mg/dl (8.4-10.2); Carbon Dioxide 23 mmol/L (22.0-30.0); Chloride 105 mmol/L (98-107); Creatinine Clearance Estimated 104 mL/min (50-200); Creatinine,Serum 0.60 mg/dl (0.52-1.04); Estimated Glomerular Filt Rate 107 ml/min (>60); GFR (African American) 130 ML/MIN (>60); Globulin 3.5 g/dL (1.3-3.2); Glucose 111 mg/dl (74-100); Potassium 4.1 mmoL/L (3.5-5.1); Sodium 141 mmol/L (136-145); Total Protein,Serum 8.4 g/dl (6.3-8.2)
[2025-07-10 10:34] LABS: Adenovirus,PCR Not Detected (NotDetected); Chlamydophila Pneumoniae, PCR Not Detected (NotDetected); Coronavirus 19, PCR Not Detected (NotDetected); Coronovirus HKU1,PCR Not Detected (NotDetected); Influenza A, PCR Not Detected (NotDetected); Influenza AH1, 2009 Not Detected (NotDetected); Influenza AH1, PCR Not Detected (NotDetected); Influenza AH3,PCR Not Detected (NotDetected); Influenza B, PCR Not Detected (NotDetected); Mycoplasma Pneumoniae, PCR Not Detected (NotDetected); Parainfluenza 1, PCR Not Detected (NotDetected); Parainfluenza 2, PCR Not Detected (NotDetected); Parainfluenza 3, PCR Not Detected (NotDetected); Parainfluenza 4, PCR Not Detected (NotDetected)
[2025-07-10 10:35] LABS: Bilirubin,Urine Negative (Negative); Color,Urine YELLOW (Yellow); Glucose,Urine (UA) Negative (Negative); Ketones,Urine 1+ (Negative); Leukocyte Esterase,Urine Negative (Negative); PH,Urine 6.5 (5.0-8.5); Protein,Urine Negative (Negative); Specific Gravity, Urine 1.020 (1.005-1.030); Urobilinogen,Urine 1.0 EU/dl (0.2)
[2025-07-10 10:48] LABS: Troponin I < 0.01 ng/ml (0.00-0.034)
[2025-07-10 10:50] LABS: Bacteria,Urine Trace /lpf
[2025-07-10] MEDS: IOPAMIDOL-370 (76%);100ML BOTTLE 75 ML IV (10:56)
[2025-07-10] MEDS: SODIUM CHLORIDE 0.9% 10ML SYR (RAD ONLY) 10 ML IV (10:56)
[2025-07-10 11:12] LABS: Lipase 75 U/L (23-300)
--- NOTE | 2025-07-10 11:28 | PC.NURSE ---
Pt states nausea has resolved and denies any other needs at this time..
[2025-07-10 11:32] LABS: Hepatitis C Ab Qual. W/ RFX NEGATIVE (Negative)
[2025-07-10 11:36] LABS: Magnesium 1.9 mg/dl (1.6-2.3); Phosphorous 2.2 mg/dl (2.5-4.5)
--- NOTE | 2025-07-10 11:43 | PC.NURSE ---
per provider ultrasound of gallbladder is to be cancelled.
[2025-07-10 11:45] LABS: NT Pro Brain Natriuretic Pep. 46.6 pg/mL (0-125)
[2025-07-10 13:54] LABS: RBC Morphology Normal; Total Cells Counted 100
== END 2025-07-10 11:59 | disposition home or self-care (01) ==
PROVIDERS: Physician Assistant; Emergency Provider Emergency Medicine; PCP Family Medicine
DX: K52.9 Noninfective gastroenteritis and colitis, unspecified (principal); Z90.710 Acquired absence of both cervix and uterus; I49.3 Ventricular premature depolarization; D64.9 Anemia, unspecified
CPT/HCPCS: 0223U; 71045; 74177; 80053; 81001; 83690; 83735; 83880; 84100; 84484; 85007; 85025; 85027; 86803; 87389; 87507; 93005; 96361; 96374; 96375; 99285; J2270; J2405; J7040; Q9967

== ENCOUNTER 2025-07-20 07:40 | Outpatient (CLI) | payer BC, SELFPAY ==
--- OUTSIDE RECORDS SUMMARY | 2024-08-30 11:00 | XMS_ITS ---
Author Organization [facility] Address [address] [facility] [address] [id number] Care Team Providers Care Sap Treasury Consultant Name Role Phone Vimal Renteriaian Primary Care Provider [phone] Sriram Noman [place]o Unavailable [phone] Allergies No Known Allergies Results Component Value [...] MG/0.5ML as directed Subcutaneous Active Vital Signs Blood pressure systolic 112 mm Hg 08/30/19 25 Blood pressure diastolic 70 mm Hg 025 Heart Rate 93 /min 08/30/2024 Height 63 in 08/30/2024 Weight 129.7 lbs 08/30/2024 BMI 22.97 kg/m2 08/30/2024 Encounters Encounter Location Date Provider Diagnosis [facility] [address] [place] [id number] 08/30/2024 Cuauhtemoc Renteria Acute URI J06.9 Assessments Encounter Date Diagnosis (ICD Code) Assessment Notes Treatment Notes Treatment Clinical Notes Section Notes 08/30/2024 Acute URI (ICD-10 - J06.9) Plan Of Treatment Next Appt Details Follow Up: prn, Reason: Progress Notes * Jenniffer HUBEReDOB:1975 (49 yo F)Acc No.[id number]:08/30/2024 Progress Notes Patient: Desiree EDUARDO Provider: Cuate Renteria M.D. :1975 A ge:49 Y S ex:Female Date:08/30/2024 Address:[address] [place], [place] [phone] Subjective: * Chief Complaints: * 1 . [...] T Shoulder 04/2007, Hysterectomy 04/2014, Bladder Repair- [facility] 01/2018. * Hospitalization/Major Diagno stic Procedure: W [facility]- [facility] 08/15/2016. * Family History: F ather: alive, [...] * Vitals: W t:129.7, Temp:99.2, BP:112/70, HR:93, Nurse:kk, Ht: 63, BMI:22.97. * Examination: E NT/Respiratory: [...] to auscultation bilaterally. Assessment: * Assessment: 1. A janee URI - J06.9 (Primary) Plan: * Treatment: Value [...] PM > results reviewed w/ pt in officeMuCuauhtemoc moya Shalom 08/30/2024 7:22:59 PM > ?LAB: CBC Fingerstick [...] p lat 169 100 - 400 * WaylonDelisa 08/30/2024 4:31:26 PM > , Provider reviewed results while patient in office.GarrisonCuauhtemoc fish 08/30/2024 7:22:46 PM > * Procedure Codes: 8 7880 STREP A ASSAY W/OPTIC, Modifiers: QW , 30912 CAPILLARY BLOOD DRAW, 20059 CBC WITH AUTO DIFF * Follow Up: p rn * Images: Billing Information: * Visit Code: 37285 Office Visit, Est Pt., Level 3. * Procedure Codes: 11318 STREP A ASSAY W/OPTIC. Modifiers: QW 36926 CAPILLARY BLOOD DRAW. 65895 CBC WITH AUTO DIFF. * Electronic signature of Tamar Renteria MD on 07/20/2025 at 07:42 AM EST Sign off status: Pending * Provider: Cuate Renteria M.D. Date: 0 08/30/2024 Generated for Printi ng/Faperig/eTransmitting on: 1 09/20/2024 07:42 AM EST History and Physical Notes * [...]
--- OUTSIDE RECORDS SUMMARY | 2024-10-30 05:45 | XMS_ITS ---
Author Organization [facility] Address [address] [facility] [address] [place] [id number] Care Team Providers Care Fisher Weir Name Role Phone Cuauhtemoc Renteria Primary Care Provider [phone] Noman Bhatia Unavailable [phone] Danielle Washington Unavailable [phone] Allergies No Known Allergies Results Component Value Reference Range Notes Influenza Screen (in house) Reviewed date:10/30/2024 03:40:04 PM Interpretation:neg Performing Lab: Notes/Report: neg results neg CBC Fingerstick (in house) Reviewed date:10/30/2024 01:26:19 PM Interpretation: Performing Lab: Notes/Report: wbc 5.4 3.5 - 10 lym 13.7 15 - 50 mid 3.4 2 - 15 gran 82.9 35 - 80 rbc 4.71 3.5 - 5.5 hgb 14.3 11.5 - 16.5 hct 42.0 35 - 55 mcv 89.2 75 - 100 mch 30.4 25 - 35 mchc 34.0 31 - 38 plat 174 100 - 400 Covid test (in house) Reviewed date:10/30/2024 01:26:36 PM Interpretation:neg Performing Lab: Notes/Report: neg Result: neg REASON FOR VISIT Nausea and Headache Medications Medication SIG (Take, Route, Frequency, Duration) Notes Start Date End Date Status Cefuroxime Axetil 500 MG 1 tablet Orally every 12 hrs; Duration: 7 day(s) 10/30/2024 Active Tirzepatide 10 MG/0.5ML as directed Subcutaneous Active Ondansetron 4 MG 1 tablet on the tong ue and allow to dissolve Orally q8h prn 10/30/2024 Active Problems Problem Type SNOMED Code ICD Code Onset Dates Problem Status W/U Status Risk Notes Problem Constipation (76771852) Constipation (K59.00) Active confirmed Problem Sinusitis (15557287) Sinusitis (J32.9) Active confirmed Vital Signs Blood pressure systolic 110 mm Hg 10/31/19 25 Blood pressure diastolic 70 mm Hg 025 Heart Rate 75 /min 10/30/2024 Height 63 in 10/30/2024 Weight 124.6 lbs 10/30/2024 BMI 22.07 kg/m2 10/30/2024 Encounters Encounter Location Date Provider Diagnosis [facility] [address] [place], [place] [id number] 10/30/2024 Danielle Washington Nausea R11.0 ; Constipation K59.00 and Sinusitis J32.9 Assessments Encounter Date Diagnosis (ICD Code) Assessment Notes Treatment Notes Treatment Clinical Notes Section Notes 10/30/2024 Nausea (ICD-10 - R11.0) bland foods in small amounts with good fluid intake--small amounts frequently; no soda or caffeine, fluids, rest, supportive measures for fever/symptom relief 10/30/2024 Constipation (ICD-10 - K59.00) taking metamucil now and will add Miralax 10/30/2024 Sinusitis (ICD-10 - J32.9) good water intake Plan Of Treatment Medication Medication Name Sig Start Date Stop Date Notes Cefuroxime Axetil 500 MG 1 tablet Orally every 12 hrs; Duration: 7 day(s) 10/30/2024 Ondansetron 4 MG 1 tablet on the tong ue and allow to dissolve Orally q8h prn 10/30/2024 Treatment Notes Assessment Notes Nausea bland foods in small amounts with good fluid intake--small amounts frequently; no soda or caffeine, fluids, rest, supportive measures for fever/symptom relief Constipation taking metamucil now and will add Miralax Sinusitis good water intake Next Appt Details Follow Up: prn, Reason: Progress Notes * Joselo HUBEROB:1975 (49 yo F)Acc No.[id number]:10/30/2024 Progress Notes Patient: Desiree EDUARDO Provider: ALFONSO Hughes :1975 A ge:49 Y S ex:Female Date:10/30/2024 Address:[address] [place], [place] [phone] Pcp:Cuauhtemoc Renteria Subjective: * Chief Complaints: * 1 . Nausea and Headache. * HPI: E NT/respiratory: 49 year old female presents with c/o nasal congestion. c/o rhinorrhea c lear in color, yellow in color. c/o headache P t sts she woke up today with a headache. c/o dizziness. c/o body aches. Denies : cough. D enies : Fever. D enies : ear pain.?Denies : chest congestion. D enies : smoking. G astroenterology: c/o Nausea P t sts she feels very nauseous and sts she has felt this way for a while now. Pt sts that it does come and go, but sts that last night it was a lot. c/o Belching. c/o Constipation b owels move 1-2 times weekly. Denies : Vomiting. D enies : Diarrhea. D enies : Abdominal Distension. nausea x 2 weeks. * ROS: D ERMATOLOGY: no R helen. n o H juanpablo. G ASTROENTEROLOGY: no N ausea. n o V omiting. U ROLOGY: no D ifficulty urinating. n o B lood in urine. * Medical History: M edical History Verified. * Surgical History: R T Shoulder 04/2007, Hysterectomy 04/2014, Bladder Repair- [facility] 01/2018. * [facility]ic [facility] * Family History: F ather: [...] MG/0.5ML Solution Auto-injector as directed Subcutaneous , Medication List reviewed and reconciled with the patient * Allergies: N .K.D.A. Objective: * Vitals: W t: 124.6, Temp: 98.8, BP: 110/70, HR: 75, O2 Sat: 100% on RA, Nurse: belinda, Ht: 63, BMI:22.07. * Examination: E NT/Respiratory: General Appearance: well nourished and hydrated, NAD, alert, active. E yes: sclera and conjunctiva clear. E ars: auditory canals normal bilaterally, tympanic membranes normal bilaterally. N ose : nares patent. S inuses : frontal sinuses tender, tender maxillary sinuses bilaterally. O ral cavity : no erythema or exudate seen on pharynx. N jazmyn : supple, no cervical lymphadenopathy. H eart : RRR. L ungs: CTAB A&P. A bdomen : BS present, soft, nontender, no epigastric tenderness, , no hepatosplenomegaly, no masses felt. Assessment: * Assessment: 1. N ausea - R11.0 (Primary) 2 . C onstipation - K59.00 3 .?Sinusitis - J32.9 Plan: * Treatment: 2. C onstipation Notes: taking metamucil now and will add Miralax 3. S inusitis Start Cefuroxime Axetil Tablet, 500 MG, 1 tablet, Orally, every 12 hrs, 7 day(s), 14 Tablet. ? Notes: good water intake * Labs: * L ab: CBC Fingerstick (in house) (Collection Date & Time - 10/30/2024) Value Reference Range w bc 5.4 3.5 - 10 * l ym 13.7 15 - 50 * m id 3.4 2 - 15 * g ran 82.9 35 - 80 * r bc 4.71 3.5 - 5.5 * h gb 14.3 11.5 - 16.5 * h ct 42.0 35 - 55 * m cv 89.2 75 - 100 * m ch 30.4 25 - 35 * m chc 34.0 31 - 38 * p lat 174 100 - 400 * Sherry Henriquez 10/30/2024 11:0 4:49 AM > Provider reviewed results while patient in office.Danielle Washington 10/30/2024 1:26:16 PM > ?Lab: Covid test (in house) (Collection Date & Time - 10/30/2024)?neg* Value Reference Range R esult: neg * Sherry Henriquez 10/30/2024 11:2 1:42 AM > Provider reviewed results while patient in office.Josh Washingtonine 10/30/2024 1:26:32 PM > ?Lab: Influenza Screen (in house) (Collection Date & Time - 10/30/2024)?neg * Value Reference Range r esults neg * Sherry Henriquez 10/30/2024 11:2 2:09 AM > Provider reviewed results while patient in office.Kiara Washingtonharine 10/30/2024 3:40:01 PM > * Procedure Codes: 9 [address] [place], [address] CBC WITH AUTO DIFF, 41234 CAPILLARY BLOOD DRAW, 77581 COVID TEST IN HOUSE, Modifiers: QW , [address]609 Flu Test- Nasal Swab, Modifiers: QW , 3074F SYST BP LT 130 MM HG, 3078F DIAST BP < 80 MM HG * Follow Up: p rn * Images: Billing Information: * Visit Code: 18304 Office Visit, Est Pt., Level 3. * Procedure Codes: [address] [place]. [address] CBC WITH AUTO DIFF. 26982 CAPILLARY BLOOD DRAW. 09211 COVID TEST IN HOUSE. Modifiers: QW 41961 Flu Test- Nasal Swab. Modifiers: QW 3074F SYST BP LT 130 MM HG. 3078F DIAST BP < 80 MM HG. * Electronic signature of Audrey Washington APRN on 07/20/2025 at 07:42 AM EST Sign off status: Pending * Provider: ALFONSO Hughes Date: 0 10/30/2024 Generated for Malick bonilla/Brian/eTjeremysmitting on: 1 09/20/2024 07:42 AM EST History and Physical Notes * HPI (History of Present Illness) Category Sub-Category Detail Notes Category Not es ENT/respiratory ear pain cough Fever headache Pt sts she woke up t shel[place] with a headache chest congestion rhinorrhea clear in color, yell ow in color nasal congestion smoking dizziness body aches Gastroenterology Vomiting nausea x 2 weeks Diarrhea Nausea Pt sts she feels kasey y nauseous and sts she has felt this way for a while now. Pt sts that it does come and go, but sts that last night it was a lot Abdominal Distension Constipation bowels move 1-2 time s weekly Belching Examination Category Sub-Category Detail Notes Category Not es ENT/Respiratory Oral cavity : no erythema or exudate s een on pharynx Sinuses : frontal sinuses tend er, tender maxillary sinuses bilaterally Ears: auditory canals norm al bilaterally, tympanic membranes normal bilaterally Neck : supple, no cervical lymphadenopathy Heart : RRR Lungs: CTAB A&P Abdomen : BS present, soft, no ntender, no epigastric tenderness, , no hepatosplenomegaly, no masses felt General Appearance: well nourished and h ydrated, NAD, alert, active Nose : nares patent Eyes: sclera and conjuncti va clear
--- OUTSIDE RECORDS SUMMARY | 2025-03-29 05:15 | XMS_ITS ---
Author Organization [facility] Address [facility] [facility] [address] [place] [id number] Care Team Providers Care Chart Snatcher Name Role Phone Cuauhtemoc Renteria Primary Care Provider Noman Bhatia Unavailable [phone] Anne Grant Unavailable [phone] Allergies No Known Allergies Results Component Value Reference Range Notes CBC Venipuncture (in house) Reviewed date:03/29/2025 12:38:57 PM Interpretation: Performing Lab: Notes/Report: wbc 4.5 3.5 - 10 lymph 33.1% 15 - 50 mid 6.0% 2 - 15 gran 60.9% 35 - 80 rbc 4.54 3.5 - 5.5 hgb 14.0 11.5 - 16.5 hct 40.5 35 - 55 mcv 89.0 75 - 100 mch 30.9 25 - 35 mchc 34.7 31 - 38 platlet 215 100 - 400 P-Comprehensive Metabolic Pa pedro luis (CMP) Reviewed date:03/30/2025 01:39:17 PM Interpretation: Performing Lab: Notes/Report: CLIA: [id number] Srini Burrell MD, Well Puller Head [facility] , [address], [place] [address] Test performed by [employer], [facility] Sodium 141 135-145 mmol/L Potassium 4.4 3.5-5.3 mmol/L Chloride 106 97-108 mmol/L CO2 26 20-32 mmol/L Glucose 87 65-99 mg/dL BUN 14 6-20 mg/dL Creatinine 0.78 0.50-1.00 mg/dL Calcium 9.4 8.6-10.4 mg/dL eGFR by Creatinine 94 >59 mL/min/1.73m2 Protein 7.1 6.0-8.3 g/dL Albumin 4.5 3.5-5.3 g/dL Alkaline Phosphatase 81 35-121 IU/L ALT (SGPT) 19 <5-47 IU/L AST (SGOT) 29 <5-40 IU/L Bilirubin, Total 0.4 <0.2-1.2 mg/dL A/G Ratio 1.7 1.1-2.5 P-Lipid Panel Reviewed date:03/30/2025 01:39:17 PM Interpretation: Performing Lab: Notes/Report: CLIA: [id number] Srini Burrell MD, [facility] [address] [place] [address] , [facility], [place] [address] Test performed by [employer], [facility] Cholesterol 138 <200 mg/dL Triglycerides 39 <150 mg/dL HDL Cholesterol 56 >39 mg/dL Cholesterol / HDL Ratio 2.46 0.00-4.44 Ratio Non-HDL Cholesterol 82 <130 mg/dL LDL Cholesterol (Calculation) 74 <130 mg/dL LDL Cholesterol Levels* Less than 100 mg/dL Optimal 100 to 129 mg/dL Near Optimal/ Above Optimal 130 to 159 mg/dL Borderline High 160 to 189 mg/dL High 190 mg/dL and above Very High * Categories as recommended by the 2004 ATPIII guidelines LDL/HDL Ratio 1.3 <3.3 Ratio LDL Cholesterol Patient History Test Date: 03/29/2025 LDL Results: 74 Units: mg/dL % Change: - P-PT/PTT Panel Reviewed date:03/30/2025 01:39:17 PM Interpretation: Performing Lab: Notes/Report: Test performed by [employer] [address] [place] [address] , [place] [address] Srini Burrell MD, Well Pull[employer] [facility] CLIA: [id number] PT 10.8 9.5-12.2 sec INR 1.0 0.9-1.2 INR Reference Ranges for patients on anticoagulant therapy: RANGES: 2.0 - 3.0: Indications: Treatment of venous thrombosis or pulmonary embolism. Prevention of systemic embolism. Tissue heart valves. Acute myocardial infarction. Atrial fibrillation. 2.5 - 3.5: Indications: Recurrent embolism. Mechanical heart valves. Antiphospholipid antibodies. INR IS FOR USE IN STABILIZED ANTICOAGULATED PATIENTS. Elevated coagulation studies may be seen in patients with hematocrit of greater than 55%. Reference: Practical Diagnosis of Hematological Disorders. 3rd Edition. 2000. p 853. Partial Thromboplastin Time (PTT) 30.0 23.9-33.0 sec Heparin therapeutic range has not been validated for this assay. P-TSH reflex to FT4 Reviewed date:03/30/2025 01:39:17 PM Interpretation: Performing Lab: Notes/Report: Test performed by [employer] [address] [place] [address] , [place] [address] Srini Burrell MD, Well Pull[employer] [facility] CLIA: [id number] TSH reflex to FT4 0.66 0.43-5.25 mU/L REASON FOR VISIT bruising and blood work Medications Medication SIG (Take, Route, Fr equency, Duration) Notes Start Date End Date Status valACYclovir HCl 1 GM 1 tablet Orally 3 times a day; Duration: 7 days 03/29/2025 Active Medrol 4 MG as directed orally d aily; Duration: 6 days 03/29/2025 Active Vital Signs Blood pressure systolic 132 mm Hg 03/29/20 25 Blood pressure diastolic 80 mm Hg 025 Heart Rate 61 /min 03/29/2025 Height 63 in 03/29/2025 Weight 122.4 lbs 03/29/2025 BMI 21.68 kg/m2 03/29/2025 Encounters Encounter Location Date Provider Diagnosis [facility] [address] [place] [id number] 03/29/2025 Anne Grant Herpes zoster withou t complication B02.9 ; Bruising T14.8XXA ; Screening, lipid Z13.220 ; Elevated liver enzymes R74.8 and BMI 21.0-21.9, adult Z68.21 Assessments Encounter Date Diagnosis (ICD Code) Assessment Notes Treatment Notes Treatment Clinical Notes Section Notes 03/29/2025 Herpes zoster without complication (ICD-10 - B02.9) 03/29/2025 Bruising (ICD-10 - T14.8XXA) 03/29/2025 Screening, lipid (ICD-10 - Z13.220) 03/29/2025 Elevated liver enzymes (ICD-10 - R74.8) 03/29/2025 BMI 21.0-21.9, adult (ICD-10 - Z68.21) Plan Of Treatment Medication Medication Name Sig Start Date Stop Date Notes valACYclovir HCl 1 GM 1 tablet Orally 3 times a day; Duration: 7 days 03/29/2025 Medrol 4 MG as directed orally d aily; Duration: 6 days 03/29/2025 Next Appt Details Follow Up: via phone to repo rt test results, Reason: Progress Notes * Jenniffer HUBEReDOB:1975 (49 yo F)Acc No.[id number]:03/29/2025 Progress Notes Patient: Desiree EDUARDO Provider: CARO Lee :1975 A ge:49 Y S ex:Female Date:03/29/2025 Address:[address] [place] [address] [id number] Pcp:Cuauhtemoc Renteria Subjective: * Chief Complaints: * 1 . Bruising and blood work. * HPI: H PI: Patient is here today for b ruising and labs. Pt states she is having bruising on her lower back going around to her side, and she has a rash on her left side. Pt states she went to the Clinic 03/28. Pt states the bruising and rash is itchy. Pt states they gave her Triamcinolone for her rash. * ROS: D ERMATOLOGY: no R helen. n o H juanpablo. G ASTROENTEROLOGY: no N ausea. n o V omiting. n o D iarrhea.? U ROLOGY: no D ifficulty urinating. n o B lood in urine. * Medical History: M edical History Verified. * Surgical History: R T Shoulder 04/2007, Hysterectomy 04/2014, Bladder Repair- [facility] 01/2018. * Hospitalization/Major Diagno stic Procedure: W [facility]ist- [facility] 08/15/2016. * Family History: F ather: alive, melanoma. M other: alive. S iblings: skin cancer, non melenoma. 2 son(s) , 2 daughter(s) . . * Social History: C URRENT TOBACCO USE S moking Status: P atient does NOT smoke. C affeine: yes, frequency:tea. Home smoke detector use: yes. Marital Status: . Past smoking status: no, Smoking status: Does not smoke. * Medications: D iscontinued Tirzepatide 10 MG/0.5ML Solution Auto-injector as directed Subcutaneous , Discontinued Ondansetron 4 MG Tablet Disintegrating 1 tablet on the tongue and allow to dissolve Orally q8h prn , Discontinued Cefuroxime Axetil 500 MG Tablet 1 tablet Orally every 12 hrs , Medication List reviewed and reconciled with the patient * Allergies: N .K.D.A. Objective: * Vitals: W t: 122.4, Temp: 97.9, BP: 132/80, HR: 61, Nurse: pe, Ht: 63, BMI:21.68. * Examination: G eneral Examination: General Appearance: N AD. H EENT: u nremarkable.?Oral cavity: n o lesions, mucosa moist and WNL, no erythema. N jazmyn: s upple, no lymphadenopathy. C hest: n ormal shape and expansion. H eart: R SR. L ungs: c lear to auscultation. A bdomen: b owel sounds present, soft and nontender. N eurologic Exam: I ntact, gait normal. S kin: e cchymosis along the left flank, there is a painful sensation along the left abdomen extending to the left flank but stopping at the midline, there is a erythematous vesicular rash along the lower abdomen on the left that is tender and puritic. P eripheral pulses: n ormal (2+) bilaterally. E xtremities: n o leg edema. ? Assessment: * Assessment: 1. H erpes zoster without complication - B02.9 (Primary) 2 . B ruising - T14.8XXA 3 . S creening, lipid - Z13.220 4 . E levated liver enzymes - R74.8 5 . B WI 21.0-21.9, adult - Z68.21 Plan: * Treatment: Value Reference Range w bc 4.5 3.5 - 10 * l ymph 33.1% 15 - 50 * m id 6.0% 2 - 15 * g ran 60.9% 35 - 80 * r bc 4.54 3.5 - 5.5 * h gb 14.0 11.5 - 16.5 * h ct 40.5 35 - 55 * m cv 89.0 75 - 100 * m ch 30.9 25 - 35 * m chc 34.7 31 - 38 * p latlet 215 100 - 400 * Mary Moe 03/29/2025 1 1:25:23 AM EDT > 2.?Bruising?LAB: P-PT/PTT Panel (Collection Date & Time - 03/29/2025 10:03 AM)* Value Reference Range I NR 1.0 0.9-1.2 - * P T 10.8 9.5-12.2 - sec * P artial Thromboplastin Time (PTT) 30.0 23.9-33 .0 - sec * Anne Grant 03/30/2025 0 1:39:12 PM EDT >see TE ?LAB: P-TSH reflex to FT4 (Collection Date & Time - 03/29/2025 10:03 AM)* Value Reference Range T SH reflex to FT4 0.66 0.43-5.25 - mU/L * Anne Grant 03/30/2025 0 1:39:12 PM EDT >see TE 3.?Screening, lipid?LAB: P-Lipid Panel (Collection Date & Time - 03/29/2025 10:03 AM)* Value Reference Range C holesterol / HDL Ratio 2.46 0.00-4.44 - Ratio * C holesterol 138 <200 - mg/dL * H DL Cholesterol 56 >39 - mg/dL * L DL Cholesterol (Calculation) 74 <130 - mg/d L * L DL/HDL Ratio 1.3 <3.3 - Ratio * N on-HDL Cholesterol 82 <130 - mg/dL * T riglycerides 39 <150 - mg/dL * Anne Grant 03/30/2025 0 1:39:12 PM EDT >see TE 4.?Elevated liver enzymes?LAB: P-Comprehensive Metabolic Panel (CMP) (Collection Date & Time - 03/29/2025 10:03 AM)* Value Reference Range A /G Ratio 1.7 1.1-2.5 - * A lbumin 4.5 3.5-5.3 - g/dL * A lkaline Phosphatase 81 35-121 - IU/L * A LT (SGPT) 19 <5-47 - IU/L * A ST (SGOT) 29 <5-40 - IU/L * B ilirubin, Total 0.4 <0.2-1.2 - mg/dL * B UN 14 6-20 - mg/dL * C alcium 9.4 8.6-10.4 - mg/dL * C hloride 106 97-108 - mmol/L * C O2 26 20-32 - mmol/L * C reatinine 0.78 0.50-1.00 - mg/dL * G lucose 87 65-99 - mg/dL * P otassium 4.4 3.5-5.3 - mmol/L * S odium 141 135-145 - mmol/L * P rotein 7.1 6.0-8.3 - g/dL * e GFR by Creatinine 94 >59 - mL/min/1.73m2 * Anne Grant 03/30/2025 0 1:39:12 PM EDT >see TE * Procedure Codes: 8 5025 CBC WITH AUTO DIFF, 206[address] VENIPUNCT, ROUTINE*, 1036F TOBACCO NON-USER, 3075F SYST BP GE 130 - 139MM HG, 3079F DIAST BP 80-89 MM HG * Follow Up: v ia phone to report test results * Images: Billing Information: * Visit Code: 58067 Office Visit, Est Pt., Level 4. * Procedure Codes: 63695 CBC WITH AUTO DIFF. 04832 VENIPUNCT, ROUTINE*. 1036F TOBACCO NON-USER. 3075F SYST BP GE 130 - 139MM HG. 3079F DIAST BP 80-89 MM HG. * Electronic signature of CARO Chaidez on 07/20/2025 at 07:42 AM EST Sign off status: Pending * Provider: CARO Lee Date: 0 03/29/2025 Generated for Printi ng/Faxing/eTransmitting on: 1 09/20/2024 07:42 AM EST History and Physical Notes * HPI (History of Present Illness) Category Sub-Category Detail Notes Category Not es HPI Patient is here today for bruisi ng and labs. Pt states she is having bruising on her lower back going around to her side, and she has a rash on her left side. Pt states she went to the Clinic 03/28. Pt states the bruising and rash is itchy. Pt states they gave her Triamcinolone for her rash Examination Category Sub-Category Detail Notes Category Not es General Examination HEENT: unremarkable Heart: RSR Lungs: clear to auscultatio n Abdomen: bowel sounds present , soft and nontender Extremities: no leg edema General Appearance: NAD Skin: ecchymosis along the left flank, there is a painful sensation along the left abdomen extending to the left flank but stopping at the midline, there is a erythematous vesicular rash along the lower abdomen on the left that is tender and puritic Neurologic Exam: Intact, gait normal Neck: supple, no lymphaden opathy Oral cavity: no lesions, mucosa m oist and WNL, no erythema Peripheral pulses: normal (2+) bilatera lly Chest: normal shape and exp ansion
--- OUTSIDE RECORDS SUMMARY | 2025-06-08 11:00 | XMS_ITS ---
Author Organization [facility] Address [address] [facility] [address] [place] [id number] Care Team Providers Care Pigskin Trimmer Name Role Phone Cuauhtemoc Renteria Primary Care Provider Noman Bhatia Unavailable [phone] Anne Grant Unavailable [phone] Allergies No Known Allergies Results Component Value [...] Signs Blood pressure systolic 132 mm Hg 06/08/20 25 Blood pressure diastolic 78 mm Hg 025 Heart Rate 56 /min 06/08/2025 Height 63 in 06/08/2025 Weight 130.4 lbs 06/08/2025 BMI 23.1 kg/m2 06/08/2025 Encounters Encounter Location Date Provider Diagnosis MICHAEL-Naseem [address] [facility] [place] [phone] 06/08/2025 Anne Grant Acute URI J06.9 Assessments [...] Up: prn, Reason: Progress Notes * Jenniffer HUBERScarletOB:1975 (49 yo F)Acc No.[id number]:06/08/2025 Progress Notes Patient: Desiree EDUARDO Provider: CARO Lee :1975 A ge:49 Y S ex:Female Date:06/08/2025 Address:[address] [place], [place] [id number] Pcp:Cuauhtemoc Renteria Subjective: * Chief Complaints: * [...] T Shoulder 04/2007, Hysterectomy 04/2014, [facility] * Hospitalization/Major Diagno stic Procedure: W rist- [facility] 08/15/2016. * Family History: F [...] STREP A ASSAY W/OPTIC, Modifiers: QW , 74591 CAPILLARY BLOOD DRAW, 23619 CBC WITH AUTO DIFF, 69510 Flu Test- Nasal Swab, Modifiers: QW , 72139 COVID TEST IN HOUSE, Modifiers: QW , 3017F COLORECTAL CA SCREEN DOC REV * Preventive Medicine: Screening / Special Tests: C olonoscopy 1 08/11/24 , repeat 5 years. * Follow Up: p rn * Images: Billing Information: * Visit Code: 73174 Office Visit, Est Pt., Level 3. * Procedure Codes: 68713 STREP A ASSAY W/OPTIC. Modifiers: QW 43860 CAPILLARY BLOOD DRAW. 51018 CBC WITH AUTO DIFF. 43082 Flu Test- Nasal Swab. Modifiers: QW 27663 COVID TEST IN HOUSE. Modifiers: QW 3017F COLORECTAL CA SCREEN DOC REV. * Electronic signature of CARO Chaidez on 07/20/2025 at 07:42 AM EST Sign off status: Pending * Provider: CARO Lee Date: 08/08/2024 Generated for Malick bonilla/Brian/eTransmitting on: 09/20/2024 07:42 AM EST History and Physical [...]
--- OUTSIDE RECORDS SUMMARY | 2025-07-11 08:45 | XMS_ITS ---
Author Organization [facility] Address [address] [facility] [address] [place] [id number] Care Team Providers Care Optical Assistant Name Role Phone Cuauhtemoc Renteria Primary Care Provider Noman Bhatia Unavailable [phone] Allergies No Known Allergies REASON FOR VISIT f/u ER Medications Medication SIG (Take, Route, Fr equency, Duration) Notes Start Date End Date Status valACYclovir HCl 1 GM 1 tablet Orally 3 times a day; Duration: 7 days 03/29/2025 Active Vital Signs Blood pressure systolic 128 mm Hg 07/11/20 25 Blood pressure diastolic 78 mm Hg 025 Heart Rate 68 /min 07/11/2025 Height 63 in 07/11/2025 Weight 127 lbs 07/11/2025 BMI 22.49 kg/m2 07/11/2025 Encounters Encounter Location Date [facility] [place] [phone] 07/11/2025 Cuauhtemoc Renteria Nausea and vomiting, unspecified [...] Improved. ER reports reviewed in office today Pending Test Test Name Order Date MRCP with and w/o contrast 07/11/2025 Next Appt Details Follow Up: via phone to repo rt test results, Reason: Progress Notes * Jenniffer HUBEReDOB:1975 (49 yo F)Acc No.[id number]:07/11/2025 Patient: Desiree EDUARDO Provider: Cuate Renteria M.D. :1975 A ge:49 Y S ex:Female Date:07/11/2025 Address:[address] [place] [address] Subjective: * Chief Complaints: * 1 . f/u ER. * HPI: H PI: 49 year old female presents with c/o Here for follow up on:?07/10/2025 [facility] ER visit. Pt went to er [...] T Shoulder 04/2007, Hysterectomy 04/2014, Bladder Repair- [facility] 01/2018. * [facility] * Family History: F ather: [...] I maging: MRCP with and w/o contrast * Follow Up: v ia phone to report test results * Images: Billing Information: * Visit Code: 72389 Office Visit, Est Pt., Level 3. * Procedure Codes: * Electronic signature of Tamar Renteria MD on 07/20/2025 at 07:42 AM EST Sign off status: Pending * Provider: Cuate Renteria M.D. Date: 09/11/2024 Generated for Printi ng/Brian/eTransmitting on: 09/20/2024 07:42 AM EST History and Physical Notes * HPI (History of Present Illness) Category Sub-Category Detail Notes Category Not es HPI Here for follow up on: 5 [facility] ER visit. Pt went to er [...]
--- NOTE | 2025-07-20 | MR_ITS ---
FINAL REPORT CLINICAL HISTORY: abdomen pain abnormal imaging COMPARISON: CT 07/10/2025 FINDINGS: Multiplanar MR imaging of the abdomen was performed without and with contrast. There are few tiny benign-appearing cysts scattered in the liver measuring up to 7 mm. There is no evidence of biliary ductal dilatation. The gallbladder is present with no localized signal abnormality in the gallbladder. The spleen is unremarkable. There is a mass in the tail of the pancreas which on T1 weighted pre infusion images measures 2.1 cm. It is ovoid in configuration and is well seen on image 45 of series 19. On post infusion images, there is initial peripheral enhancement with homogeneous enhancement on later phase images. The adrenal glands and kidneys are unremarkable. IMPRESSION: 2.1 cm mass in the tail of the pancreas. Differential considerations include intrapancreatic splenule versus neoplasm. Consider PET scan to better characterize. Reviewed, Interpreted and Dictated by Jama Bardales MD Transcribed by Ce Baptiste Authenticated and [facility]
--- OUTSIDE RECORDS SUMMARY | 2025-07-20 07:42 | XMS_ITS | Encounter Summary ---
Author Organization [facility] Address [address] [place] [address] Care Team Providers Care Residential Support Specialist Name Role Phone Cuauhtemoc Renteria MD Primary Care Provider [phone] Encounter Details Date Type Department Care Team (Late st Contact Info) Description 10/10/2024 Results Follow-Up [facility] [address] [facility] [address] [place] [address] Wendy Moreno CNM [address] [facility] [address] [place] [address] Social History Tobacco Use Types Packs/Day Years Used Date Smoking Tobacco: Never Smokeless Tobacco: Never Alcohol Use Standard Drinks/Week Comments No 0 (1 standard drink = 0.6 oz pur e alcohol) Education Answer Date Recorded What is the highest level of school you have completed or the highest degree you have received? Some college, no degree 10/10/2024 Comments No Sex and Gender Information Value Date Recorded Sex Assigned at Female 10/10/2024 6:49 AM EDT Legal Sex Female 11:10 AM EDT Gender Identity Not on file Sexual Orientation Straight 10/10/2024 6: 49 AM EDT documented as of this encounter Plan of Treatment Upcoming Encounters Date Type Department Care Team (Late st Contact Info) Description 10/11/2025 9:10 AM EDT Office Visit [facility] [address] [facility] [address] [place] [id number] Wendy Moreno CNM [address] [address] documented as of this encounter Visit Diagnoses Not on filedocumented in this encounter Care Teams Residential Support Specialist Relationship Specialty Start Date End Date Cuauhtemoc Renteria MD [facility] [address] [facility] [address] [place] [address] PCP - General 03/14/15 documented as of this encounter
--- OUTSIDE RECORDS SUMMARY | 2025-07-20 07:43 | XMS_ITS | Clinical Summary ---
Author Organization [facility] Address [address] [place] [address] Care Team Providers Care Homemaker Companion Name Role Phone Cuauhtemoc Renteria MD Primary Care Provider [phone] Allergies No known active allergies Medications VITAMIN D PO Take by mouth. Active Cyanocobalamin (VITAMIN B 12 PO) Take by mouth. Active Active Problems Problem Noted Date Diagnosed Date Normal gynecologic examination 09/13/2024 Overview (09/13/2024): SCREENING TESTS Year 2020 2021 2022 2023 2024 2025 2026 2027 2028 2029 2030 2031 2032 2033 2034 2035 2036 Age 49 PAP HPV high risk JOSE [Birads] 2[1] GWENDOLYN (5 year) Genaro Benton (lifetime) NCCN criteria met? Colonoscopy DEXA [T-score] Frax [hip/any] Lipids [LDL / HDL / TG] Vitamin D TSH Enter the month test was performed. If month not known, enter X' Black numbers = normal results Red numbers = abnormal results Black X = patient reported normal Red X - patient reported abnormal Referred by: Profession: Other info: Fibrocystic breast changes, bilateral 01/31/2020 Graves disease Resolved Problems Problem Noted Date Diagnosed Date Resolved Date TYLER (stress urinary incontinence, female) 12/07/2017 02/07/2018 Family History Medical History Relation Name Comments Melanoma Father Ulises Krause Prostate cancer Father Ulises Krause Diabetes Mother Yanira Krause Breast cancer Neg Hx Endometrial cancer Neg Hx Ovarian cancer Neg Hx Relation Name Status Comments Father Ulises Krause Alive Maternal Grandmother Mother Yanira Krause Alive Social History Tobacco Use Types Packs/Day Years [...] Orientation Straight 10/10/2024 6: 49 AM EDT Last Filed Vital Signs Vital Sign Reading Time Taken Comments Blood Pressure 120/70 10/10/2024 9:41 AM EDT Pulse 53 02/07/2018 11:41 AM EDT Temperature 36.4 C (97.5 F) 10/07/2020 10:29 AM EST Respiratory Rate 20 12/08/2022 8:46 AM EDT Oxygen Saturation 97% 02/07/2018 11:41 AM EDT Inhaled Oxygen Concentration - - Weight 56.9 kg (125 lb 6.4 oz) 10/10/2024 9:41 A M EDT Height 157.5 cm (5' 2 ) 10/10/2024 9:41 AM EDT Body Mass Index 22.94 10/10/2024 9:41 AM EDT Plan of Treatment Upcoming Encounters Date Type Department Care Team (Late st Contact Info) Description 10/11/2025 9:10 AM EDT Office Visit [facility] [address] [facility] [address] [place] [address] Wendy Moreno CNM [address] [facility] [address] [place] [address] Health Maintenance Due Date Last Done Comments TDAP/TD VACCINES (1 - Tdap) 1996 ANNUAL PHYSICAL 12/07/2017 COLOGUARD 2022 COLON CANCER SCREENING [address] COLONOGRAPHY 2022 FECAL OCCULT BLOOD TEST 2022 FIT Testing (1 year) 2022 INFLUENZA VACCINE 03/02/2025 Annual Gynecologic Pelvic and Breast Exam 10/11/2025 10/10/2024, 01/17/2019 MAMMOGRAM 09/13/2026 09/13/2024, 09/02, 10/11/2020, Additional history exists COLONOSCOPY 01/11/2033 01/11/2023 COLORECTAL CANCER SCREENING 01/11/2033 HEPATITIS C SCREENING Completed 04/25/2014 Pneumococcal Vaccine 0-49 Aged Out No longer eligible based on patient's age to complete this topic Medical Devices Implanted Type Area Nursing Staff Development Coordinator Device Identifier Shelf Expiration Date Model / Serial / Lot Mesh Proln 3x6 - [id number] Implanted:Qty : 1 on 02/07/2018 by Anderson Mckinney MD at [facility] Implant N/A: Bladder [employer] 03/01/2022 PMII / / [id number] Procedures Procedure Name Priority Date/Time Associated Diagnosis Comments MAMMO SCREENING DIGITAL TOMOSYNTHESIS BILATERAL W CAD Routine 09/11/2024 8:39 AM EST Encounter for screening mammogram for breast cancer SCANNED - COLONOSCOPY 01/11/2023 SCANNED - PAP SMEAR 01/17/2019 HEPATITIS C ANTIBODY Routine 04/25/2014 3:59 PM EDT from Last 3 Months or Most Recently Relevant to Health Maintenance Results * Mammo Screening Digital Tomosynthesis Bilateral With CAD (09/11/2024 8:39 AM EST) Anatomical Region Laterality Modality Breast N/A Mammography 09/13/2024 1:14 PM EST Impressions 09/13/2024 1:15 PM EST No findings suspicious for malignancy. ACR BI-RADS CATEGORY: 1, NEGATIVE RECOMMENDATION: Yearly mammogram, yearly clinical breast exam, and encourage self breast awareness. CAD was used. The standard false negative rate of mammography is between 10% and 25%. Complex patterns or increased breast density will markedly elevate the false negative rate of mammography. A letter, in lay terminology, with the results of this exam will be mailed to the patient. At our facility, a triangular marker is positioned over a palpable area of concern indicated by the patient. A lower elwha marker is placed over a visible skin lesion. A linear marker indicates a scar. If there is a palpable area of concern, biopsy should be considered regardless of imaging findings. 09/13/2024 1:[address] Melvina Velasco MD on Narrative 09/13/2024 1:15 PM EST DIGITAL SCREENING MAMMOGRAM WITH TOMOSYNTHESIS HISTORY: Routine screening. IMAGE COMPARISON: 10/11/2020, 07/19/2020, 01/03/2020. TECHNIQUE: Low dose full field digital breast tomosynthesis imaging was performed with 2D and 3D acquisitions consisting of bilateral CC and MLO views. FINDINGS: The breasts are heterogeneously dense, which may obscure small masses. The fibroglandular pattern appears stable. There is no mass, worrisome microcalcifications, or architectural distortion to suggest development of malignancy. Wendy oMreno CN IMG MAMMOGRAPHY ORDERABLES Fi nal Result * SCANNED - COLONOSCOPY (01/11/2023) Steve Mccain MD CHART REVIEW TABS Final Result * SCANNED - PAP SMEAR (01/17/2019) Anderson Mckinney MD CHART REVIEW TABS Vianca l Result * Hepatitis C antibody (04/25/2014 3:59 PM EDT) Hep C Virus Ab NonReactive NONREACTIVE B [facility] Comment: DF by IF @ 04/25/2014 18:05 The signal to cutoff ratio (S/C) for the Hepatitis C antibodies is: Greater Than or Equal to 11.0 TEST INFORMATION: Hepatitis C Virus Antibody This test is performed using chemiluminescent immunoassay (ALBERTO). Anti-HCV Signal Cutoff (S/C) Ratios (ALBERTO): Less than 0.8 ................. NonReactive 0.80 to 1.00 .................. Equivocal Greater than 1.00 ............. Reactive This assay is intended for clinical diagnosis only. Blood specimen (specimen) 04/25/2014 3:59 PM EDT Narrative [facility] - 04/25/2014 6:05 PM EDT Specimen Type: Blood Anderson Mckinney MD LAB BLOOD ORDERABLES Vianca l Result [facility] [address] [id number], from Last 3 Months or Most Recently Relevant to Health Maintenance Insurance SIVAN PALMER [id number] [facility] PPO Care Teams Homemaker Companion Relationship Specialty Start Date End Date Cuauhtemoc Renteria MD [address] [facility] [address] [place] [id number] PCP - General 03/14/15
--- OUTSIDE RECORDS SUMMARY | 2025-07-20 07:43 | XMS_ITS | Data Portability ---
Author Organization [facility] AMADOU Burns MOHNTON CLOSED Address [address] [facility] [address] [place] [address] Assessment Encounter Date Assessment Date Assessment LastModified by Organization Details LastModified Time 07/05/2018 07/05/2018 Pulmonary functi on testing today reveals a normal FEV1 to FVC ratio of 82%. FEV1 is 2.69 L or 94% predicted. FVC is 3.27 L or 96% predicted. There is mild air trapping with residual volume of 130%. Total lung capacity of 108%. There is a normal diffusion lung capacity uncorrected for hemoglobin 89%. Two-view chest x-ray performed today reveals no acute cardiopulmonary abnormalities. Not available 07/05/2018 11:51:59 Plan of Treatment Reminders Order Date Submit Date Provider Last Modified By Organization Details Last Modified Time Details Appointments None recorded. Lab CBC w/ auto diff 2017 [facility], [address] [place] [address], [phone], 8 13:07:08 BMP, serum or plasma 2017 018 [facility], [address] [place] [address], [phone], 8 13:23:09 TSH, serum or plasma 2017 018 [facility], [address] [place] [address], [phone], 8 13:17:49 Referral None recorded. Procedures None recorded. Surgeries None recorded. Imaging None recorded. Medication Orders ProAir HFA 90 mcg/actua tion aerosol inhaler 2017 018 INTERFACE [facility] 591, [address], [address], 8 11:34:11 Patient TargetsNo targets recorded. Patient Instructions Encounter Date Encounter Id Patient Instructions Last Modified By Organization Details Last Modified Time 07/05/2018 [id number] shortness of breath: care instructions Not available 07/05/2018 11:33:11 Reason for Referral None Reported. Results Created Date Observation Date Name Description Value Unit Range Abnormal Flag Note LastModifiedBy Organization Detail LastModifiedTime 07/05/20 18 07/05/2018 CBC w/ auto diff white blood cells 5.5 K/uL 3.8-10 .8 normal Not Available [facility] [address] [place] [address], [phone], 07/05/2018 13:07:08 07/05/20 18 07/05/2018 CBC w/ auto diff red blood cells 4.39 M/uL 3.80-5 .20 normal Not Available [facility] [address] [place] [address], [phone], 07/05/2018 13:07:08 07/05/20 18 07/05/2018 CBC w/ auto diff hemoglobin 13.3 g/dL 12.0-1 6.0 normal Not Available [facility] [address] [place] [address], [address], 07/05/2018 13:07:08 07/05/20 18 07/05/2018 CBC w/ auto diff hematocrit 39.0 % 35.0-4 7.0 normal Not Available [facility] [address] [place], [address], 07/05/2018 13:07:08 07/05/20 18 07/05/2018 CBC w/ auto diff MCV 89 fL 80-100 normal Not Available [facility] [address] [place] [address], [address], 07/05/2018 13:07:08 07/05/20 18 07/05/2018 CBC w/ auto diff MCH 30 pg 26-35 normal Not Available [facility] [address] [place] [address], [phone], 07/05/2018 13:07:08 07/05/20 18 07/05/2018 CBC w/ auto diff MCHC 34 g/dL 32-36 normal Not Available [facility] [address] [place] [address], [address], 07/05/2018 13:07:08 07/05/20 18 07/05/2018 CBC w/ auto diff RDW 12.9 % 11.0-1 5.0 normal Not Available [facility] [address] [place] [address], [address], 07/05/2018 13:07:08 07/05/20 18 07/05/2018 CBC w/ auto diff MPV 8.0 fL 6.2-10 .5 normal Not Available [facility] [address] [place] [address], [address], 07/05/2018 13:07:08 07/05/20 18 07/05/2018 CBC w/ auto diff platelet count 234 K/uL 130-40 0 normal Not Available [facility] [address] [place] [address], [address], 07/05/2018 13:07:08 07/05/20 18 07/05/2018 CBC w/ auto diff neutrophil,a bsolute 3.2 K/uL 1.6-8. 4 normal Not Available [facility] [address] [place] [address], [phone], 07/05/2018 13:07:08 07/05/20 18 07/05/2018 CBC w/ auto diff lymphocyte,a bsolute 1.8 K/uL 0.4-5. 1 normal Not Available [facility] [address] [place] [address], [address], 07/05/2018 13:07:08 07/05/20 18 07/05/2018 CBC w/ auto diff monocyte,abs olute 0.4 K/uL 0.0-1. 2 normal Not Available [facility] [address] [place] [address], [address], 07/05/2018 13:07:08 07/05/20 18 07/05/2018 CBC w/ auto diff eosinophil,a bsolute 0.1 K/uL 0.0-0. 8 normal Not Available [facility] [address] [place] [address], [address], 07/05/2018 13:07:08 07/05/20 18 07/05/2018 CBC w/ auto diff basophil,abs olute 0.0 K/uL 0.0-0. 3 normal Not Available [facility] [address] [place] [address], [address], 07/05/2018 13:07:08 07/05/20 18 07/05/2018 CBC w/ auto diff % neutrophils 58.0 % 42.0-7 8.0 normal Not Available [facility] [address] [place] [address], [address], 07/05/2018 13:07:08 07/05/20 18 07/05/2018 CBC w/ auto diff % lymphocytes 32.2 % 11.0-4 7.0 normal Not Available [facility] [address] [place] [address], [address], 07/05/2018 13:07:08 07/05/20 18 07/05/2018 CBC w/ auto diff % monocytes 6.9 % 0.0-11 .0 normal Not Available [facility] [address] [place] [address], [address], 07/05/2018 13:07:08 07/05/20 18 07/05/2018 CBC w/ auto diff % eosinophils 2.7 % 0.0-7. 0 normal Not Available [facility] [address] [place] [address], [address], 07/05/2018 13:07:08 07/05/20 18 07/05/2018 CBC w/ auto diff % basophils 0.2 % 0.0-3. 0 normal Not Available [facility] [address] [place] [address], [address], 07/05/2018 13:07:08 07/05/20 18 07/05/2018 CBC w/ auto diff nucleated red cells 0.1 % 0.0-0. 9 normal Not Available [facility] [address] [place] [address], [address], 07/05/2018 13:07:08 07/05/20 18 07/05/2018 CBC w/ auto diff nucleated RBCs, absolute 0.00 K/uL not estab. normal Not Available [facility] [address] [place] [address], [address], 07/05/2018 13:07:08 07/05/20 18 07/05/2018 TSH, serum or plasm a TSH 1.830 uIU/m L 0.290- 5.500 normal Not Available [facility] [address] [place] [address], [address], 07/05/2018 13:17:49 07/05/20 18 07/05/2018 BMP, serum or plasm a glucose 90 mg/dL 74-100 normal Not Available [facility] [address] [place] [address], [address], 07/05/2018 13:23:09 07/05/20 18 07/05/2018 BMP, serum or plasm a blood urea nitrogen 12 mg/dL 6-20 normal Not Available [facility] [address] [place] [address], [address], 07/05/2018 13:23:09 07/05/20 18 07/05/2018 BMP, serum or plasm a creatinine 0.64 mg/dL 0.50-0 .95 normal Not Available [facility] [address] [place] [address], [address], 07/05/2018 13:23:09 07/05/20 18 07/05/2018 BMP, serum or plasm a BUN/creatini ne ratio 19 (calc ) 10-20 normal Not Available [facility] [address] [place] [address], [address], 07/05/2018 13:23:09 07/05/20 18 07/05/2018 BMP, serum or plasm a sodium 139 mmol/ L 136-14 5 normal Not Available [facility] [address] [place] [address], [address], 07/05/2018 13:23:09 07/05/20 18 07/05/2018 BMP, serum or plasm a potassium 4.2 mmol/ L 3.4-5. 0 normal Not Available [facility] [address] [place] [address], [address], 07/05/2018 13:23:09 07/05/20 18 07/05/2018 BMP, serum or plasm a chloride 104 mmol/ L 98-107 normal Not Available [facility] [address] [place] [address], [address], 07/05/2018 13:23:09 07/05/20 18 07/05/2018 BMP, serum or plasm a carbon dioxide 22 mmol/ L 20-32 normal Not Available [facility] [address] [place] [address], [address], 07/05/2018 13:23:09 07/05/20 18 07/05/2018 BMP, serum or plasm a anion gap 13 (calc ) 7-25 normal Not Available [facility] [address] [place], [address], 07/05/2018 13:23:09 07/05/20 18 07/05/2018 BMP, serum or plasm a calcium 9.2 mg/dL 8.6-10 .2 normal Not Available [facility] [address] [place] [address], [address], 07/05/2018 13:23:09 07/05/20 18 07/05/2018 BMP, serum or plasm a GFR 129 >= 60 normal Not Available [facility] [address] [place], [address], 07/05/2018 13:23:09 07/05/20 18 07/05/2018 BMP, serum or plasm a GFR non- 111 >= 60 normal NOT E NEW calcu latio n for GFR is based on the Natio nal Kidne y Found ation CKD-E PI equat ion and allow s for repor ting GFR value s great er than 60 mL/mi n/1.7 3 m2. This calcu latio n has not been valid ated for patie nts less than 18 yrs., pregn ant women and Hispa nics. Chron ic kidne y disea se is defin ed as kidne y damag e or GFR less than 60 mL/mi n/1.7 3 m2 for 3 month s or longe r. Not Available [facility] [address] [place], [address], 07/05/2018 13:23:09 06/10/20 18 imagi ng/di agnos tic resul t No observ ation record ed. [email or web address] [facility] [address], [place], [address], 06/14/2018 09:51:26 07/05/20 18 07/05/2018 XR, chest , 2 view [facility] [address] [facility] [address], [address] [place] [address] Patitrevin t Name: DESIREE Davis t : [birth year] Patitrevin t Orderi ng Provid er: MAURO LAZCANOCLIFFORD MCMANUS ER EXAM DATE: 2017 EXAM: XR CHEST PA/LAT CLINIC AL INFORM ATION: Shortn ess of breath . IMAGES PROVID ED: PA and latera l views of the chest. COMPAR ALEXANDRA: None. FINDIN GS: Heart size is within normal limits . Lung retana are clear. IMPRES SAMANTHA: No acute cardio pulmon geovanni change s. Interp reted By: Amado Gomez MD Electr onical ly Signed By: Amado Gomez MD on 018 2:56 PM pam [facility] [address] [place], [address], 07/05/2018 15:11:57 Result Notes Documentation Provider Name and Address Organization Details Recorded Time Xr, Chest, 2 View : [facility] [address] [facility], [address] [place] [address] Patient Name: DESIREE HUBER Patient : [id number] Patient Ordering Provider: MAURO ARGUETA EXAM DATE: 07/05/2018 EXAM: XR CHEST PA/LAT CLINICAL INFORMATION: Shortness of breath. IMAGES PROVIDED: PA and lateral views of the chest. COMPARISON: None. FINDINGS: Heart size is within normal limits. Lung retana are clear. IMPRESSION: No acute cardiopulmonary changes. Interpreted By: Jai Gomez MD O ARGUETA PA-C [address] [place], [address], [facility] 07/05/2018 15:11:57 Procedures Surgical History Date Name Laterality Status Provider Name and Address Organization Details Recorded Time 07/05/20 18 Airway Resistance completed [facility] 07/05/2018 10:30:57 07/05/20 18 Diffusion Capacity completed [facility] 07/05/2018 10:30:54 07/05/20 18 Lung Volumes, Plethysmography completed [facility] 07/05/2018 10:30:55 07/05/20 18 Spirometry completed MAURO ARGUETA PA-C [address] [place], [address], [facility] 07/05/2018 11:39:39 07/05/20 18 Pulse Oximetry completed [facility] 07/05/2018 10:26:15 Dewitt Teeth Extraction completed [facility] 07/05/2018 10:25:12 partial hysterectomy completed [facility] 07/05/2018 10:25:25 procedure on urinary bladder completed Elizabeth Macias [facility] 07/05/2018 10:25:35 Imaging Results None recorded. Procedure Notes None recorded. Medical Equipment None Reported. Allergies No known drug allergies Medications Name Sig Start Date Stop Date Status Note LastModified by Organization Details LastModified Time sulfamethox azole 800 mg-trimetho prim 160 mg tablet 07/05 completed Not Available Not Available Not Available ibuprofen 600 mg tablet 07/05 completed Not Available Not Available Not Available oxycodone-a cetaminophe n 7.5 mg-325 mg tablet 07/05 completed Not Available Not Available Not Available methylpredn isolone 4 mg tablets in a dose pack 07/05 completed Not Available Not Available Not Available bromphenira mine-pseudo ephedrine-D M 2 mg-30 mg-10 mg/5 mL oral syrup 07/05 completed Not Available Not Available Not Available cefdinir 300 mg capsule 07/05 completed Not Available Not Available Not Available ProAir HFA 90 mcg/actuati on aerosol inhaler Inhale 2 puffs every 4 hours by inhalatio n route as needed. active Not Available Not Available No t Available Vitals Date Recorded Body weight Body mass index (BMI) Body height Heart rate Oxygen saturation Respiratory rate Systolic And Diastolic Provider Name and Address Organization Details Last Updated DateTime 8 06889.1 1 g 29.9 kg/m2 160.02 cm 64 /min 98 % 16 /min 110/72 mm[Hg] Elizabeth Gilberto [facility] 8 10:23:25 Social History Question Answer Notes LastModified by Organizat ion Details LastModified Time Tobacco Smoking Status [facility] 10:24:44 What Was The Date Of Your Most Recent Tobacco Screening? 07/05/2018 [id number] Information n ot available 09/19/2019 Sex: Unknown Functional Status Question Answer Note LastModified by Organization D etails LastModified Time What is your level of alcohol consumption? None [email or web address] Information not available 07/05/2018 Mental Status None recorded. Family History Relationship Description Onset Age of this Age Resolved Age Notes LastModified by Organization Details LastModified Time Mother Family history of malignant neoplasm [email or web address] Not available 07/05 10:24:22 Father Family history of malignant neoplasm [email or web address] Not available 07/05 10:24:22 Brother Allergic rhinitis [email or web address] Not available 07/05 10:24:30 Brother Asthma [email or web address] Not availabl e 07/05/2018 10:24:37 Medical History No medical history recorded. Gynecological HistoryNo gynecological history recorded. Obstetrics History GPAL:G 0 P 0 0 0 0 Past Encounters Encounter ID Performer Location Encounter Start Date Encounter Closed Date Diagnosis/Indication Diagnosis SNOMED-CT Code Diagnosis ICD10 Code Diagnosis IMO Codes Diagnosis Note [id number] MAURO ARGUETA PA-C P[facility] [address] [facility], [address] [place] [address] 07/05/2018 09:51:15 07/06/2018 09:42:01 Dyspnea 702040340 R06.02 Sensation that she needs to take a deep breath in order to get enough air. Check CBC, BMP and TSH. She did have a TSH performed in September which was normal. Start trial of pro-air 2 puffs every 4 hours as needed for shortness of breath. Check methacholi ne challenge test. With the exception of mild air trapping, pulmonary function testing is within normal limits. Pulmonary function testing performed in May will be requested for comparison . Chest x-ray today reveals no acute cardiopulm onary abnormalit ies. At this time, I do not see an indication for further chest imaging however, CT chest may be considered in the future. If complete pulmonary evaluation reveals no abnormalit ies, consider cardiac evaluation . Encouraged the patient contact the office when questions, concerns or changes in respirator y status. Health Concerns Section Related Observation LastModified by Organization Detai ls LastModified Time None Recorded Concern Status LastModified by Organization Details LastModified Time None Recorded Advance Directives Directive None Recorded Payers Insurance Date Sequence Insurance Name Policy Number Policy Pelayo Covered Member ID Pelayo Member ID Guarantor Name 06/26/2020 1 [employer] [id number] Niels Huber [id number] Desireeasia Huber Notes Date Note Type Note Provider Name and Address Organization Details Recorded Time 07/05/2018 text/html Mrs. Huber is a 42-year-old female who presents to the office today for evaluation of dyspnea. She is being seen at the request of Vita Grant PA-C in [place], [place]. She reports that approximately 2 years ago she had an onset of a sensation of shortness of breath. She reports that it eventually went away however, has begun to recur over the last 8 months. She describes this as feeling like she needs to take a very deep breath and order to catch her breath. She reports that this occurs randomly at rest and randomly with exertion. She is unable to identify any exacerbating or alleviating factors. She also reports sensation of chest heaviness when this occurs. She reports having pulmonary function testing in May 2018 which were abnormal however, these records are not available at this time. They will be requested from her PCPs office. She also had an echocardiogram in June 2018 which revealed a normal ejection fraction of 55%. There is mild mitral and tricuspid regurgitation with no pericardial effusion. RVSP has not been calculated. She denies any known pulmonary issues. She has not had a recent chest x-ray. She is a lifelong nonsmoker. She reports that her grandfather did have pulmonary problems however, he was a lifelong smoker. MAURO ARGUETA PA-C [facility] [place], [address], [facility] 07/05/2018 11:52:27 OBGyn Episode No OBEpisode recorded.
--- OUTSIDE RECORDS SUMMARY | 2025-07-20 07:43 | XMS_ITS | Patient Health Record ---
Author Organization [facility] Address [address] [facility] [address] [place] [id number] Care Team Providers Care Security Rep Name Role Phone Cuauhtemoc Renteria Primary Care Provider Noman Bhatia Unavailable [phone] Danielle Washington Unavailable [phone] Anne Grant Unavailable [phone] Allergies No Known Allergies Results Component Value [...] performed according to the current CDC recommendations. CBC Venipuncture (in house) Reviewed date:03/29/2025 12:38:57 [...] Interpretation: Performing Lab: Notes/Report: Test performed by [facility] [place] , [address], [place] [address] Srini Burrell MD, Knitting Teacher CLIA: [id number] Sodium 141 135-145 mmol/L Potassium 4.4 3.5-5.3 [...] Interpretation: Performing Lab: Notes/Report: Test performed by [facility] [place] [address], [place] [address] Srini Burrell MD, Knitting Teacher CLIA: [id number] Cholesterol 138 <200 mg/dL Triglycerides 39 <150 [...] Interpretation: Performing Lab: Notes/Report: Test performed by [facility], [address], [place] [address] Srini Burrell MD, Knitting Teacher CLIA: [id number] PT 10.8 9.5-12.2 sec INR 1.0 0.9-1.2 [...] Interpretation: Performing Lab: Notes/Report: Test performed by [facility] [address] [place] [address] , [address], [place] [address] Srini Burrell MD, Knitting Teacher CLIA: [id number] TSH reflex to FT4 0.66 0.43-5.25 mU/L Influenza Screen (in house) Reviewed date:06/08/2025 04:53:34 [...] PM Interpretation: Performing Lab: Notes/Report: Result: neg Influenza Screen (in house) Reviewed date:10/30/2024 03:40:04 PM Interpretation:neg Performing Lab: Notes/Report: neg results neg Covid test (in house) Reviewed date:10/30/2024 01:26:36 PM Interpretation:neg Performing Lab: Notes/Report: neg Result: neg CBC Fingerstick (in house) Reviewed date:10/30/2024 [...] - 38 plat 174 100 - 400 Medications Medication SIG (Take, Route, Fr equency, Duration) Notes Start Date End Date Status valACYclovir HCl 1 GM 1 tablet Orally 3 times a day; Duration: 7 days 03/29/2025 Active Immunizations Vaccine Route Administration Date Status Comme nts COVID 19 Pfizer Unknown 12/16/2020 Administered Fluzone Quad (6months&older) IM Intramuscular 04/30/2016 Administered Problems Problem Type SNOMED Code ICD Code Onset Dates Problem Status W/U Status Risk Notes Problem Sinusitis (71759383) Sinusitis (J32.9) Active confirmed Problem Constipation (86546744) Constipation (K59.00) Active confirmed Problem SI - Stress incontinence (52565613) Stress incontinence (N39.3) Active confirmed Vital Signs Heart Rate 68 /min 07/11/2025 Blood pressure diastolic 78 mm Hg 07/11/2025 Height 63 in 07/11/2025 Blood pressure systolic 128 mm Hg 07/11/2025 Weight 127 lbs 07/11/2025 BMI 22.49 kg/m2 07/11/2025 Encounters Encounter Location Date Provider Diagnosis [facility] [address] [facility] [address] [place], [place] [id number] 08/30/2024 Cuauhtemoc Bern Acute URI J06.9 [facility] [address] [facility] [address] [place], [place] [id number] 10/30/2024 Danielle Washington Nausea R11.0 ; Constipation K59.00 and Sinusitis J32.9 [facility] [address] [place], [place] [id number] 03/29/2025 Anne Grant Herpes zoster withou t complication B02.9 ; Bruising T14.8XXA ; Screening, lipid Z13.220 ; Elevated liver enzymes R74.8 and BMI 21.0-21.9, adult Z68.21 [facility] [address] [place], [place] [id number] 06/08/2025 Anne Grant Acute URI J06.9 [facility] [address] [facility] [address] [place], [place] [id number] 07/11/2025 Cuauhtemoc Bern Nausea and vomiting, unspecified vomiting type R11.2 and 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 [facility] [address] [facility] [address] [place], [place] [id number] 03/30/2025 Anne Grant [facility] [address] [place], [place] [id number] 04/17/2025 Cuauhtemoc Bern Assessments Encounter Date Diagnosis (ICD Code) Assessment Notes Treatment Notes Treatment Clinical Notes Section Notes 10/30/2024 Constipation (ICD-10 - K59.00) taking metamucil now and will add Miralax 10/30/2024 Nausea (ICD-10 - R11.0) bland foods in small amounts with good fluid intake--small amounts frequently; no soda or caffeine, fluids, rest, supportive measures for fever/symptom relief 03/29/2025 Bruising (ICD-10 - T14.8XXA) 06/08/2025 Acute URI (ICD-10 - J06.9) fluids, rest, supportive measures for fever/symptom relief, all tests are negative, if she is better by Wednesday should be able to do her c-scope 07/11/2025 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 ER reports reviewed in office today 03/29/2025 Herpes zoster without complication (ICD-10 - B02.9) 08/30/2024 Acute URI (ICD-10 - J06.9) 03/29/2025 Screening, lipid (ICD-10 - Z13.220) 10/30/2024 Sinusitis (ICD-10 - J32.9) good water intake 03/29/2025 Elevated liver enzymes (ICD-10 - R74.8) 03/29/2025 BMI 21.0-21.9, adult (ICD-10 - Z68.21) Plan Of Treatment Pending Test Test Name Order Date H-UPPER RESP, PCR 07/05/2023 MRCP with and w/o contrast 07/11/2025 Insurance Providers Payer Name Payer Address Payer Phone Subscriber Number Group Number Insured Name Patient Relationship to Insured Coverage Start Date Coverage End Date [employer] [address] [place] [address] [id number] Desiree Huber Self - patient is the insured Medications Administered Medication Instructions Date of Administration Dosage Notes phenergan 25 mg/ml 08/26/2011 phenergan 50mg/ml 06/03/2009 50 mg Medical (General) History Surgical History Surgery Date(Month/Year) RT Shoulder 04/2007 Hysterectomy 04/2014 Bladder Repair- [facility] 01/2018 Hospitalization History Reason Date(Month/Year) Wrist- [facility] 08/15/2016
[2025-07-20] MEDS: SODIUM CHLORIDE 0.9% 10ML SYR (RAD ONLY) 10 ML IV (09:19)
[2025-07-20] MEDS: GADOTERIDOL INJ 20ML SYRINGE 11 ML IV (09:19)
[2025-07-20] MEDS: 0.9 % SODIUM CHLORIDE 50 ML VIAL 20 ML IV (09:19)
== END 2025-07-20 23:59 | disposition home or self-care (01) ==
LOC: RAD 07:40
PROVIDERS: PCP Family Medicine; Visit Provider Family Medicine
DX: D37.8 Neoplasm of uncertain behavior of other specified digestive organs (principal)
CPT/HCPCS: 74183; 76376; A9576

== ENCOUNTER 2025-07-30 08:35 | Outpatient (CLI) | payer BC, SELFPAY ==
--- OUTSIDE RECORDS SUMMARY | 2024-08-30 11:00 | XMS_ITS ---
Author Organization [facility] Address [address] [facility] [address] [id number] Care Team Providers Care Clinical Trials Systems Administrator Name Role Phone Vimal Renteriaian Primary Care Provider Sriram Noman [place]o Unavailable [phone] Allergies No Known Allergies Results Component Value Reference Range Notes Rapid Strep- Inhouse Reviewed date:08/30/2024 07:23:04 PM Interpretation:Negative Performing Lab: Notes/Report: Negative strep test neg CBC Fingerstick (in house) Reviewed date:08/30/2024 07:22:51 PM Interpretation: Performing Lab: Notes/Report: wbc 5.8 3.5 - 10 lym 12.5% 15 - 50 mid 3.5% 2 - 15 gran 83.9% 35 - 80 rbc 4.18 3.5 - 5.5 hgb 12.8 11.5 - 16.5 hct 37.5 35 - 55 mcv 89.6 75 - 100 mch 30.8 25 - 35 mchc 34.3 31 - 38 plat 169 100 - 400 H-URI Panel-mini (Rhino,flu A/B, RSV, Covid) Reviewed date:08/30/2024 07:23:27 PM Interpretation: Performing Lab: Notes/Report: RHINOPCR Not Detected NotDetected INFLUAPCR Not Detected NotDetected INFLUB Not Detected NotDetected RSVPCR Not Detected NotDetected COVIDHMH Detected NotDetected Effective 03/25/21, Positive covid results will no longer be called to the ordering physician. Infection control and the physician?s office will continue to report positive covid results to the local Health Department as required. This assay is for in vitro diagnostic use under FDA Emergency Use Authorization only. Negative results do not preclude infection with SARS CoV 2 virus and should not be the sole basis of a patient treatment/management or public health decision. Follow up testing should be performed according to the current CDC recommendations. REASON FOR VISIT sore throat, body aches Medications Medication SIG (Take, Route, Fr equency, Duration) Notes Start Date End Date Status Tirzepatide 10 MG/0.5ML as directed Subcutaneous Active Vital Signs Weight 129.7 lbs 08/30/2024 Blood pressure systolic 112 mm Hg 08/30/19 25 Blood pressure diastolic 70 mm Hg 025 Heart Rate 93 /min 08/30/2024 Height 63 in 08/30/2024 BMI 22.97 kg/m2 08/30/2024 Encounters Encounter Location Date Provider Diagnosis [facility] [address] [facility] [address] [facility] [address] [place], [place] [id number] 08/30/2024 Cuauhtemoc Renteria Acute URI J06.9 Assessments Encounter Date Diagnosis (ICD Code) Assessment Notes Treatment Notes Treatment Clinical Notes Section Notes 08/30/2024 Acute URI (ICD-10 - J06.9) Plan Of Treatment Next Appt Details Follow Up: prn, Reason: Provider Name:Cuauhtemoc Ford ry, 08/01/2025 02:00:00 PM, [address] [facility] [address] [facility], [address], [place], [place], [id number], Progress Notes * Jenniffer HUBERScarletOB:1975 (49 yo F)Acc No.[id number]:08/30/2024 Progress Notes Patient: Desiree EDUARDO Provider: Cuate Renteria M.D. :1975 A ge:49 Y S ex:Female Date:08/30/2024 Address:[address] [place], [place] [phone] Subjective: * Chief Complaints: * 1 . Sore throat, body aches. * HPI: E NT/respiratory: 49 year old female presents with c/o sore throat P t complains of sore throat that started yesterday. Pt states she also has bodyaches, cough and congestion.? * ROS: D ERMATOLOGY: no R helen. n o H juanpablo. G ASTROENTEROLOGY: no N ausea. n o V omiting. U ROLOGY: no D ifficulty urinating. n o B lood in urine. * Medical History: M edical History Verified. * Surgical History: R T Shoulder 04/2007, Hysterectomy 04/2014, Bladder Repair- [facility] 01/2018. * [facility]2016. * Family History: F ather: alive, melanoma. M other: alive. S iblings: skin cancer, non melenoma. 2 son(s) , 2 daughter(s) . . * Social History: C URRENT TOBACCO USE S moking Status: P atient does NOT smoke. C affeine: yes, frequency:tea. Home smoke detector use: yes. Marital Status: . Past smoking status: no, Smoking status: Does not smoke. * Medications: T aking Tirzepatide 10 MG/0.5ML Solution Auto-injector as directed Subcutaneous , Discontinued Wegovy 0.25 MG/0.5ML Solution Auto-injector 0.5 ml Subcutaneous weekly , Medication List reviewed and reconciled with the patient * Allergies: N .K.D.A. Objective: * Vitals: W t:129.7, Temp:99.2, BP:112/70, HR:93, Nurse:eladio, Ht: 63, BMI:22.97. * Examination: E NT/Respiratory: General Appearance: N AD. E yes: P ERRLA, sclera clear. E ars: auditory canals normal bilaterally, tympanic membranes normal bilaterally.?Nose : nares patent, clear rhinorrhea. O ral cavity : erythema without exudate on pharynx. N jazmyn : n o cervical lymphadenopathy. H eart : R RR, normal S1 S2. L ungs: c lear to auscultation bilaterally. Assessment: * Assessment: 1. Elizabeth SHAWI - J06.9 (Primary) Plan: * Treatment: Value Reference Range R HINOPCR Not Detected NotDetected - * I NFLUAPCR Not Detected NotDetected - * I NFLUB Not Detected NotDetected - * R SVPCR Not Detected NotDetected - * C OVIDHMH Detected Aa NotDetected - * Cuauhtemoc Renteria 08/30/2024 7 :23:10 PM > Spoke to patient. ?LAB: Rapid Strep- Inhouse (Collection Date & Time - 08/30/2024)?Negative* Value Reference Range s trep test neg * Echo Lopez 08/30/2024 4:21 :43 PM > results reviewed w/ pt in officeMulCuauhtemoc fish 08/30/2024 7:22:59 PM > ?LAB: CBC Fingerstick (in house) (Collection Date & Time - 08/30/2024)* Value Reference Range w bc 5.8 3.5 - 10 * l ym 12.5% 15 - 50 * m id 3.5% 2 - 15 * g ran 83.9% 35 - 80 * r bc 4.18 3.5 - 5.5 * h gb 12.8 11.5 - 16.5 * h ct 37.5 35 - 55 * m cv 89.6 75 - 100 * m ch 30.8 25 - 35 * m chc 34.3 31 - 38 * p lat 169 100 - 400 * Delisa Connors 08/30/2024 4:31:26 PM > , Provider reviewed results while patient in office.Cuauhtemoc Renteria Shalom 08/30/2024 7:22:46 PM > * Procedure Codes: 8 7880 STREP A ASSAY W/OPTIC, Modifiers: QW , [address] CAPILLARY BLOOD DRAW, 99390 CBC WITH AUTO DIFF * Follow Up: p rn * Images: Billing Information: * Visit Code: 82333 Office Visit, Est Pt., Level 3. * Procedure Codes: 05634 STREP A ASSAY W/OPTIC. Modifiers: QW 15403 CAPILLARY BLOOD DRAW. 56682 CBC WITH AUTO DIFF. * Electronic signature of Tamar Renteria MD on 07/31/2025 at 10:30 AM EST Sign off status: Pending * Provider: Cuate Renteria M.D. Date: 0 08/30/2024 Generated for Malick ng/Brian/eTransmitting on: 1 10:30 AM EST History and Physical Notes * HPI (History of Present Illness) Category Sub-Category Detail Notes Category Not es ENT/respiratory sore throat Pt complains of sore throat that started yesterday. Pt states she also has bodyaches, cough and congestion Examination Category Sub-Category Detail Notes Category Not es ENT/Respiratory Oral cavity : erythema without exudate on pharynx Ears: auditory canals norm al bilaterally, tympanic membranes normal bilaterally Neck : no cervical lymphade nopathy Heart : RRR, normal S1 S2 Lungs: clear to auscultatio n bilaterally General Appearance: NAD Nose : nares patent, clear rhinorrhea Eyes: PERRLA, sclera clear
--- OUTSIDE RECORDS SUMMARY | 2024-10-30 05:45 | XMS_ITS ---
Author Organization [facility] Address [address] [facility] [address] [place] [id number] Care Team Providers Care Assistant Technician Name Role Phone Cuauhtemoc Renteria Primary Care Provider Noman Bhatia Unavailable [phone] Danielle Washington Unavailable [phone] Allergies No Known Allergies Results Component Value [...] Status W/U Status Risk Notes Problem Constipation (89748758) Constipation (K59.00) Active confirmed Problem Sinusitis (19950538) Sinusitis (J32.9) Active confirmed Vital Signs Weight 124.6 lbs 10/30/2024 Blood pressure systolic 110 mm Hg 10/31/19 25 Blood pressure diastolic 70 mm Hg 025 Heart Rate 75 /min 10/30/2024 Height 63 in 10/30/2024 BMI 22.07 kg/m2 10/30/2024 Encounters Encounter Location Date Provider Diagnosis [facility] [address] [place] [id number] 10/30/2024 Danielle Washington Nausea R11.0 ; Constipation [...] Details Follow Up: prn, Reason: Provider Name:Cuauhtemoc wagner, 08/01/2025 02:00:00 PM, [address], [place], [id number], Progress Notes * Hector HUBER:1975 (49 yo F)Acc No.[id number]:10/30/2024 Progress Notes Patient: Desiree EDUARDO Provider: ALFONSO Hughes :1975 A ge:49 Y S ex:Female Date:10/30/2024 Address:[address] [place] [address] Pcp:Cuauhtemoc Renteria Subjective: * Chief Complaints: * [...] T Shoulder 04/2007, Hysterectomy 04/2014, [facility] * [facility]ic [facility]. [...] results while patient in office.Kiara Washingtonharine 10/30/2024 1:26:16 PM > ?Lab: Covid test (in house) (Collection Date & Time - 10/30/2024)?neg* Value Reference Range R esult: neg * Sherry Henriquez 10/30/2024 11:2 1:42 AM > Provider reviewed results while patient in office.Danielle Washington 10/30/2024 1:26:32 PM > ?Lab: Influenza Screen (in house) (Collection Date & Time - 10/30/2024)?neg * Value Reference Range r esults neg * Sherry Henriquez 10/30/2024 11:2 2:09 AM > Provider reviewed results while patient in office.Danielle Washington 10/30/2024 3:40:01 PM > * Procedure Codes: 9 [address] [place], [address] CBC WITH AUTO DIFF, 70953 CAPILLARY BLOOD DRAW, 73413 COVID TEST IN HOUSE, Modifiers: QW , 29001 Flu Test- Nasal Swab, Modifiers: QW , 3074F SYST BP LT 130 MM HG, 3078F DIAST BP < 80 MM HG * Follow Up: p rn * Images: Billing Information: * Visit Code: 15205 Office Visit, Est Pt., Level 3. * Procedure Codes: [address] [place]. [address] CBC WITH AUTO DIFF. 61751 CAPILLARY BLOOD DRAW. 91125 COVID TEST IN HOUSE. Modifiers: QW 76811 Flu Test- Nasal Swab. Modifiers: QW 3074F SYST BP LT 130 MM HG. 3078F DIAST BP < 80 MM HG. * Electronic signature of Audrey Washington APRN on 07/31/2025 at 10:30 AM EST Sign off status: Pending * Provider: ALFONSO Hughes Date: 0 10/30/2024 Generated for Malick bonilla/Brian/eTaleydaitting on: 1 10:30 AM EST History and [...]
--- OUTSIDE RECORDS SUMMARY | 2025-03-29 05:15 | XMS_ITS ---
Author Organization [facility] Address [facility] [facility] [address] [place] [id number] Care Team Providers Care Kitchenwhere Maker Name Role Phone Cuauhtemoc Renteria Primary Care Provider [phone] Noman Bhatia Unavailable [phone] Anne Grant Unavailable [phone] Allergies No Known Allergies Results Component Value [...] 01:39:17 PM Interpretation: Performing Lab: Notes/Report: CLIA: [id number] Srini Burrell MD, Preliminary School Psychologist [facility] , [address], [place] [address] Test performed by [employer], [facility] Sodium 141 135-145 mmol/L Potassium 4.4 3.5-5.3 [...] Interpretation: Performing Lab: Notes/Report: Test performed by [employer], [facility] [address] [place] [address] , [address], [place] [address] Srini Burrell MD, Preliminary School Psychologist CLIA: [id number] Cholesterol 138 <200 mg/dL Triglycerides 39 <150 [...] Interpretation: Performing Lab: Notes/Report: Test performed by [employer] [address] [place] [address] , [place] [address] Srini Burrell MD, Preliminary School Psychologist CLIA: [id number] PT 10.8 9.5-12.2 sec INR 1.0 0.9-1.2 [...] Interpretation: Performing Lab: Notes/Report: Test performed by [employer] [address] [place] [address] , [place] [address] Srini Burrell MD, Preliminary School Psychologist CLIA: [id number] TSH reflex to FT4 0.66 0.43-5.25 mU/L REASON FOR VISIT bruising and blood work Medications Medication SIG (Take, Route, Fr equency, Duration) Notes Start Date End Date Status valACYclovir HCl 1 GM 1 tablet Orally 3 times a day; Duration: 7 days 03/29/2025 Active Medrol 4 MG as directed orally d aily; Duration: 6 days 03/29/2025 Active Vital Signs Weight 122.4 lbs 03/29/2025 Blood pressure systolic 132 mm Hg 03/29/20 25 Blood pressure diastolic 80 mm Hg 025 Heart Rate 61 /min 03/29/2025 Height 63 in 03/29/2025 BMI 21.68 kg/m2 03/29/2025 Encounters Encounter Location Date Provider Diagnosis [facility] 36 [facility] [address] [place], [place] [id number] 03/29/2025 Anne Grant Herpes zoster withou t [...] phone to repo rt test results, Reason: Provider Name:Cuauhtemoc Ford , 08/01/2025 02:00:00 PM, [address] [facility] 36 [facility], [address], [place], [place], [id number], Progress Notes * Jenniffer HUBEReDOB:1975 (49 yo F)Acc No.[id number]:03/29/2025 Progress Notes Patient: Desiree EDUARDO Provider: CARO Lee :1975 A ge:49 Y S ex:Female Date:03/29/2025 Address:[address] [place], [place] [id number] Pcp:Cuauhtemoc Renteria Subjective: * Chief Complaints: * [...] T Shoulder 04/2007, Hysterectomy 04/2014, Bladder Repair- [facility] 01/2018. * Hospitalization/Major Diagno stic Procedure: W [facility] 08/15/2016. * Family History: F [...] liver enzymes - R74.8 5 . B AK 21.0-21.9, adult - Z68.21 Plan: * Treatment: [...] 94 >59 - mL/min/1.73m2 * Anne Grant Henry 03/30/2025 0 1:39:12 PM EDT >see TE * Procedure Codes: 8 5025 CBC WITH AUTO DIFF, 52554 VENIPUNCT, ROUTINE*, 1036F TOBACCO NON-USER, 3075F SYST BP GE 130 - 139MM HG, 3079F DIAST BP 80-89 MM HG * Follow Up: v ia phone to report test results * Images: Billing Information: * Visit Code: 58155 Office Visit, Est Pt., Level 4. * Procedure Codes: 77070 CBC WITH AUTO DIFF. 24026 VENIPUNCT, ROUTINE*. 1036F TOBACCO NON-USER. 3075F SYST BP GE 130 - 139MM HG. 3079F DIAST BP 80-89 MM HG. * Electronic signature of CARO Chaidez on 07/31/2025 at 10:29 AM EST Sign off status: Pending * Provider: CARO Lee Date: 0 03/29/2025 Generated for Printi ng/Faxing/eTransmitting on: 1 10:29 AM EST History and Physical Notes * [...]
--- OUTSIDE RECORDS SUMMARY | 2025-06-08 11:00 | XMS_ITS ---
Author Organization [facility] Address [address] [facility] [address] [place] [id number] Care Team Providers Care Crinkling Machine Operator Name Role Phone Cuauhtemoc Renteria Primary Care Provider Noman Bhatia Unavailable [phone] Anne Grant Unavailable [phone] Allergies No Known Allergies Results Component Value Reference Range Notes Influenza Screen (in house) Reviewed date:06/08/2025 04:53:34 PM Interpretation: Performing Lab: Notes/Report: results neg Rapid Strep- Inhouse Reviewed date:06/08/2025 04:43:39 PM Interpretation: Performing Lab: Notes/Report: strep test neg CBC Fingerstick (in house) Reviewed date:06/08/2025 04:50:26 PM Interpretation: Performing Lab: Notes/Report: wbc 7.4 3.5 - 10 lym 29.9% 15 - 50 mid 7.0% 2 - 15 gran 63.1% 35 - 80 rbc 4.34 3.5 - 5.5 hgb 13.4 11.5 - 16.5 hct 39.1 35 - 55 mcv 90.0 75 - 100 mch 30.9 25 - 35 mchc 34.3 31 - 38 plat 106 100 - 400 Covid test (in house) Reviewed date:06/08/2025 04:53:39 PM Interpretation: Performing Lab: Notes/Report: Result: neg REASON FOR VISIT drainage, sore throat, RT ear Medications Medication SIG (Take, Route, Fr equency, Duration) Notes Start Date End Date Status valACYclovir HCl 1 GM 1 tablet Orally 3 times a day; Duration: 7 days 03/29/2025 Active Medrol 4 MG as directed orally d aily; Duration: 6 days 03/29/2025 Active Vital Signs Weight 130.4 lbs 06/08/2025 Blood pressure systolic 132 mm Hg 06/08/20 25 Blood pressure diastolic 78 mm Hg 025 Heart Rate 56 /min 06/08/2025 Height 63 in 06/08/2025 BMI 23.1 kg/m2 06/08/2025 Encounters Encounter Location Date Provider Diagnosis [facility] 36 [facility] [address] [place], [place] [id number] 06/08/2025 Anne Grant Acute URI J06.9 Assessments Encounter Date Diagnosis (ICD Code) Assessment Notes Treatment Notes Treatment Clinical Notes Section Notes 06/08/2025 Acute URI (ICD-10 - J06.9) fluids, rest, supportive measures for fever/symptom relief, all tests are negative, if she is better by Wednesday should be able to do her c-scope Plan Of Treatment Treatment Notes Assessment Notes Acute URI fluids, rest, suppor tive measures for fever/symptom relief, all tests are negative, if she is better by Wednesday should be able to do her c-scope Next Appt Details Follow Up: prn, Reason: Provider Name:Cuauhtemoc Ford ry, 08/01/2025 02:00:00 PM, [address] [facility] 36 [facility], [address], [place], [id number], Progress Notes * Jenniffer HUBEReDOB:1975 (49 yo F)Acc No.[id number]:06/08/2025 Progress Notes Patient: Desiree EDUARDO Provider: CARO Lee :1975 A ge:49 Y S ex:Female Date:06/08/2025 Address:[address] [place], [place] [id number] Pcp:Cuauhtemoc Renteria Subjective: * Chief Complaints: * 1 . drainage, sore throat, RT ear. * HPI: E NT/respiratory: 49 year old female presents with c/o sore throat f eels scratchy, swallowing painful. Pt states she has colonscopy on Monday 06/11 and wants to make sure she is good before then. c/o cough d ry without any sputum production. c/o nasal congestion. c/o ear pain P t states her right ear has shooting pain. * ROS: D ERMATOLOGY: no R helen. n o H juanpablo. G ASTROENTEROLOGY: no N ausea. n o V omiting. n o D iarrhea.? U ROLOGY: no D ifficulty urinating. n o B lood in urine. * Medical History: M edical History Verified. * Surgical History: R T Shoulder 04/2007, Hysterectomy 04/2014, Bladder Repair- [facility] 01/2018. * Hospital[facility] Diagno [facility]ic [facility]. * Family History: F ather: alive, melanoma. M other: alive. S iblings: skin cancer, non melenoma. 2 son(s) , 2 daughter(s) . . * Social History: C URRENT TOBACCO USE: No S moking Status: P atient does NOT smoke. C affeine: yes, frequency:tea. Home smoke detector use: yes. Marital Status: . Past smoking status: no, Smoking status: Does not smoke. * Medications: T aking Medrol 4 MG Tablet Therapy Pack as directed orally daily , Taking valACYclovir HCl 1 GM Tablet 1 tablet Orally 3 times a day , Medication List reviewed and reconciled with the patient * Allergies: N .K.D.A. Objective: * Vitals: W t: 130.4, Temp: 98.3, BP: 132/78, HR: 56, Nurse: CRYS, Ht: 63, BMI:23.1. * Examination: E NT/Respiratory: General Appearance: N AD. E ars: a uditory canals normal bilaterally, TM's WNL. N ose : c lear rhinorrhea. O ral cavity : n o erythema or exudate seen on pharynx. N jazmyn : n o cervical lymphadenopathy. H eart : R RR, normal S1 S2, no murmurs. L ungs: c lear to auscultation bilaterally. Assessment: * Assessment: 1. Elizabeth weller URI - J06.9 (Primary) Plan: * Treatment: Value Reference Range r esults neg * Naye Tinoco 06/08/2025 04: 50:44 PM EST > Provider reviewed results while patient in office.Anne Grant 06/08/2025 04:53:31 PM EST > ?LAB: Rapid Strep- Inhouse (Collection Date & Time - 06/08/2025)* Value Reference Range s trep test neg * Naye Tinoco 06/08/2025 04: 32:28 PM EST > Provider reviewed results while patient in office.Anne Grant 06/08/2025 04:43:36 PM EST > ?LAB: CBC Fingerstick (in house) (Collection Date & Time - 06/08/2025)* Value Reference Range w bc 7.4 3.5 - 10 * l ym 29.9% 15 - 50 * m id 7.0% 2 - 15 * g ran 63.1% 35 - 80 * r bc 4.34 3.5 - 5.5 * h gb 13.4 11.5 - 16.5 * h ct 39.1 35 - 55 * m cv 90.0 75 - 100 * m ch 30.9 25 - 35 * m chc 34.3 31 - 38 * p lat 106 100 - 400 * Naye Tinoco 06/08/2025 04: 39:14 PM EST > Provider reviewed results while patient in office.Anne Grant 06/08/2025 04:50:24 PM EST > ?LAB: Covid test (in house) (Collection Date & Time - 06/08/2025)* Value Reference Range R esult: neg * Naye Tinoco 06/08/2025 04: 50:26 PM EST > Provider reviewed results while patient in office.Anne Grant 06/08/2025 04:53:37 PM EST > Notes: fluids, rest, supportive measures for fever/symptom relief, all tests are negative, if she is better by Wednesday should be able to do her c-scope?? * Procedure Codes: 8 7880 STREP A ASSAY W/OPTIC, Modifiers: QW , 88675 CAPILLARY BLOOD DRAW, 78731 CBC WITH AUTO DIFF, 71167 Flu Test- Nasal Swab, Modifiers: QW , 12635 COVID TEST IN HOUSE, Modifiers: QW , 3017F COLORECTAL CA SCREEN DOC REV * Preventive Medicine: Screening / Special Tests: C olonoscopy 1 08/11/24 , repeat 5 years. * Follow Up: p rn * Images: Billing Information: * Visit Code: 64832 Office Visit, Est Pt., Level 3. * Procedure Codes: 25658 STREP A ASSAY W/OPTIC. Modifiers: QW 51961 CAPILLARY BLOOD DRAW. 63733 CBC WITH AUTO DIFF. 39419 Flu Test- Nasal Swab. Modifiers: QW 17467 COVID TEST IN HOUSE. Modifiers: QW 3017F COLORECTAL CA SCREEN DOC REV. * Electronic signature of CARO Chaidez on 07/31/2025 at 10:30 AM EST Sign off status: Pending * Provider: CARO Lee Date: 1 08/08/2024 Generated for Malick bonilla/Brian/eTransmitting on: 10:30 AM EST History and Physical Notes * HPI (History of Present Illness) Category Sub-Category Detail Notes Category Not es ENT/respiratory sore throat feels scratchy, swallowing painful. Pt states she has colonscopy on Monday 06/11 and wants to make sure she is good before then ear pain Pt states her right ear has shooting pain cough dry without any sput um production nasal congestion Examination Category Sub-Category Detail Notes Category Not es ENT/Respiratory Oral cavity : no erythema or exudate s een on pharynx Ears: auditory canals norm al bilaterally, TM's WNL Neck : no cervical lymphade nopathy Heart : RRR, normal S1 S2, n o murmurs Lungs: clear to auscultatio n bilaterally General Appearance: NAD Nose : clear rhinorrhea
--- OUTSIDE RECORDS SUMMARY | 2025-07-11 08:45 | XMS_ITS ---
Author Organization [facility] [place] Address [address] [facility] [address] [phone] Care Team Providers Care Instrument Person Name Role Phone Cuauhtemoc Renteria Primary Care Provider Noman Bhatia Unavailable [phone] Allergies No Known Allergies Results Component Value Reference Range Notes MRCP with and w/o contrast Reviewed date:07/23/2025 01:43:27 PM Interpretation: Performing Lab: Notes/Report: REASON FOR VISIT f/u ER Medications Medication SIG (Take, Route, Fr equency, Duration) Notes Start Date End Date Status valACYclovir HCl 1 GM 1 tablet Orally 3 times a day; Duration: 7 days 03/29/2025 Active Vital Signs Weight 127 lbs 07/11/2025 Blood pressure systolic 128 mm Hg 07/11/20 25 Blood pressure diastolic 78 mm Hg 025 Heart Rate 68 /min 07/11/2025 Height 63 in 07/11/2025 BMI 22.49 kg/m2 07/11/2025 Encounters Encounter Location Date Provider Diagnosis [facility] [address] [facility] 36 [address] [id number] 07/11/2025 Cuauhtemoc Renteria Nausea and vomiting, unspecified vomiting type R11.2 and 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 ER reports reviewed in office today Next Appt Details Follow Up: via phone to repo rt test results, Reason: Provider Name:Cuauhtemoc Ford ry, 08/01/2025 02:00:00 PM, [address], [address], [place], [place], [id number], Progress Notes * Joselo HUBEROB:1975 (49 yo F)Acc No.[id number]:07/11/2025 Patient: Desiree EDUARDO Provider: Cuate Renteria M.D. :1975 A ge:49 Y S ex:Female Date:07/11/2025 Address:[address] [place], [place] [phone] Subjective: * Chief Complaints: * 1 . f/u ER. * HPI: H PI: 49 year old female presents with c/o Here for follow up on:?07/10/2025 [facility] ER visit. Pt went to er for nausea. Pt dx with gastroenteritis and was rx'd Zofran and Dicyclomine. Pt states she is feeling better and was able to eat crackers today and keep them down . Pt states she is here today due to mass on Pancreas that showed on CT report, pt i s concerned . * Medical History: M edical History Verified. * Surgical History: R T Shoulder 04/2007, Hysterectomy 04/2014, [facility] * Hospitalization/Major Diagno stic [facility] * Family History: F ather: alive, [...] Does not smoke. * Medications: T aking valACYclovir HCl 1 GM Tablet 1 tablet Orally 3 times a day , Discontinued Medrol 4 MG Tablet Therapy Pack as directed orally daily , Medication List reviewed and reconciled with the patient * Allergies: N .K.D.A. Objective: * Vitals: W t: 127, Temp: 98.1, BP: 128/78, HR: 68, Nurse: eladio, Ht: 63, BMI:22.49. * Examination: G eneral Examination: General Appearance: N AD. H eart: R SR. L ungs:?clear to auscultation. A bdomen: b owel sounds present, soft and nontender. Assessment: * Assessment: 1. N ausea and vomiting, unspecified vomiting type - R11.2 (Primary) 2 . 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 N eoplasm of uncertain behavior of pancreas I maging: MRCP with and w/o contrast (Performed Date - 07/20/2025) * Follow Up: v ia phone to report test results * Images: Billing Information: * Visit Code: 39224 Office Visit, Est Pt., Level 3. * Procedure Codes: * Electronic signature of Tamar Renteria MD on 07/31/2025 at 10:31 AM EST Sign off status: Pending * Provider: Cuate Renteria M.D. Date: 09/11/2024 Generated for Malick bonilla/Brian/Damasoitting on: 10:31 AM EST History and Physical Notes * HPI (History of Present Illness) Category Sub-Category Detail Notes Category Not es HPI Here for follow up on: 5 [facility] ER visit. Pt went to er for nausea. Pt dx with gastroenteritis and was rx'd Zofran and Dicyclomine. Pt states she is feeling better and was able to eat crackers today and keep them down . Pt states she is here today due to mass on Pancreas that showed on CT report, pt is concerned Examination Category Sub-Category Detail Notes Category Not es General Examination Heart: RSR Lungs: clear to auscultatio n Abdomen: bowel sounds present , soft and nontender General Appearance: NAD
--- OUTSIDE RECORDS SUMMARY | 2025-07-23 03:45 | XMS_ITS ---
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 Assessments Encounter Date Diagnosis (ICD Code) Assessment Notes Treatment Notes Treatment Clinical Notes Section Notes 07/23/2025 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) Plan Of Treatment Pending Test Test Name Order Date PET scan 07/23/2025 Next Appt Details Provider Name:Cuauhtemoc Ford ry, 08/01/2025 02:00:00 PM, [address], [place], [place], [id number], Progress Notes * Joselo HUBEROB:1975 (49 yo F)Acc No.[id number]:07/23/2025 Patient: Desiree EDUARDO :1975 A ge:49 Y S ex:Female Address:[address] [place] [id number] Subjective: * Chief Complaints: * T est Results * Medical History: * Surgical History: * Hospitalization/Major Diagno stic Procedure: * Medications: Objective: * Vitals: * Physical Examination: Assessment: * Assessment: 1. 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
[2025-07-30 16:09] LABS: Coronavirus 19, PCR Not Detected (NotDetected); Influenza A, PCR Not Detected (NotDetected); Influenza B, PCR Not Detected (NotDetected)
--- OUTSIDE RECORDS SUMMARY | 2025-07-31 10:31 | XMS_ITS | Encounter Summary ---
[facility] Address [address] [place] [address] Care Team Providers Care Lining Marker Name Role Phone Cuauhtemoc Renteria MD Primary Care Provider [phone] Encounter Details Date Type Department Care Team (Late st Contact Info) Description 10/10/2024 Results Follow-Up [facility] [address] [facility] [address] [place] [address] Wendy Moreno CNM [address] [facility] [address] [place] [address] Social History Tobacco Use Types Packs/Day Years [...] Description 10/11/2025 9:10 AM EDT Office Visit [facility] [address] [facility] [address] [place] [phone] Wendy Moreno CNM [address] [address] documented as of this encounter Visit Diagnoses Not on filedocumented in this encounter Care Teams Lining Marker Relationship Specialty Start Date End Date Cuauhtemoc Renteria MD [facility] [address] [facility] [address] [place] [address] PCP - General 03/14/15 documented as of this encounter
--- OUTSIDE RECORDS SUMMARY | 2025-07-31 10:31 | XMS_ITS | Clinical Summary ---
Author Organization [facility] Address [address] [place] [address] Care Team Providers Care Bungy Jump Master Name Role Phone Cuauhtemoc Renteria MD Primary Care Provider [phone] Allergies No known active allergies Medications VITAMIN [...] Description 10/11/2025 9:[address] EDT [address] [facility] [address] [facility] [address] [place] [address] Wendy Moreno CNM [address] [facility] [address] [place] [address] Health Maintenance Due Date Last Done Comments [...] this topic Medical Devices Implanted Type Area Skin Drier Device Identifier Shelf Expiration Date Model / Serial / Lot Mesh Proln 3x6 - [id number] Implanted:Qty : 1 on 02/07/2018 by Anderson Mckinney MD at [facility] Implant N/A: Bladder [employer] J 03/01/2022 PMII / / [id number] Procedures Procedure Name Priority Date/Time Associated Diagnosis [...] of concern indicated by the patient. A seneca-cayuga marker is placed over a visible skin [...] distortion to suggest development of malignancy. Wendy Moreno CN IMG MAMMOGRAPHY ORDERABLES Fi nal Result * SCANNED - COLONOSCOPY (01/11/2023) Steve Mccain MD CHART REVIEW TABS Final Result * SCANNED - PAP SMEAR (01/17/2019) Anderson Mckinney MD CHART REVIEW TABS Vianca l Result * Hepatitis C antibody (04/25/2014 3:59 PM EDT) Hep C Virus Ab NonReactive NONREACTIVE B [facility] Comment: DF by IF @ [...] specimen (specimen) 04/25/2014 3:59 PM EDT Narrative [facility] - 04/25/2014 6:05 PM EDT Specimen Type: Blood Anderson Mckinney MD LAB BLOOD ORDERABLES Vianca l Result [facility] [address] [id number], from Last 3 Months or Most Recently Relevant to Health Maintenance Insurance SIVAN PALMER [id number] [facility] PPO Care Teams Bungy Jump Master Relationship Specialty Start Date End Date Cuauhtemoc Renteria MD [address] [facility] [address] [place] [address] PCP - General 03/14/15
--- OUTSIDE RECORDS SUMMARY | 2025-07-31 10:31 | XMS_ITS | Patient Health Record ---
Author Organization [facility] Address [address] [facility] [address] [place] [id number] Care Team Providers Care Desk Representative Name Role Phone Cuauhtemoc Renteria Primary Care Provider Noman Bhatia Unavailable [phone] Danielle Washington Unavailable [phone] Anne Grant Unavailable [phone] Allergies No Known Allergies Results Component Value [...] Interpretation: Performing Lab: Notes/Report: Test performed by [facility] , [address], [place] [address] Srini Burrell MD, Bookkeepers Supervisor CLIA: [id number] Sodium 141 135-145 mmol/L Potassium 4.4 3.5-5.3 [...] Interpretation: Performing Lab: Notes/Report: Test performed by [facility] [address], [place] [address] Srini Burrell MD, Bookkeepers Supervisor CLIA: [id number] Cholesterol 138 <200 mg/dL Triglycerides 39 <150 [...] Interpretation: Performing Lab: Notes/Report: Test performed by [facility], [address], [place] [address] Srini Burrell MD, Bookkeepers Supervisor CLIA: [id number] PT 10.8 9.5-12.2 sec INR 1.0 0.9-1.2 [...] Interpretation: Performing Lab: Notes/Report: Test performed by [facility] [address] [place] [address] , [address], [place] [address] Srini Burrell MD, Bookkeepers Supervisor CLIA: [id number] TSH reflex to FT4 0.66 0.43-5.25 mU/L [...] PM Interpretation: Performing Lab: Notes/Report: Result: neg Covid test (in house) Reviewed date:10/30/2024 [...] - 38 plat 174 100 - 400 Influenza Screen (in house) Reviewed date:10/30/2024 03:40:04 PM Interpretation:neg Performing Lab: Notes/Report: neg results neg MRCP with and w/o contrast Reviewed date:07/23/2025 01:43:27 PM Interpretation: Performing Lab: Notes/Report: Medications Medication SIG (Take, Route, Fr equency, Duration) Notes Start Date End Date Status valACYclovir HCl 1 GM 1 tablet Orally 3 times a day; Duration: 7 days 03/29/2025 Active Immunizations Vaccine Route Administration Date Status Comme nts Fluzone Quad (6months&older) IM Intramuscular 04/30/2016 Administered COVID 19 Pfizer Unknown 12/16/2020 Administered Problems Problem Type SNOMED Code ICD Code Onset Dates Problem Status W/U Status Risk Notes Problem Sinusitis (84935078) Sinusitis (J32.9) Active confirmed Problem Constipation (10116377) Constipation (K59.00) Active confirmed Problem SI - Stress incontinence (79125499) Stress incontinence (N39.3) Active confirmed Vital Signs Heart Rate 68 /min 07/11/2025 Blood pressure diastolic 78 mm Hg 07/11/2025 Height 63 in 07/11/2025 Blood pressure systolic 128 mm Hg 07/11/2025 Weight 127 lbs 07/11/2025 BMI 22.49 kg/m2 07/11/2025 Encounters Encounter Location Date Provider Diagnosis [facility] [address] [facility] [address] [place] [id number] 08/30/2024 Cuauhtemoc Renteria Acute URI J06.9 [facility] [address] [place] [id number] 10/30/2024 Danielle Washington Nausea R11.0 ; Constipation K59.00 and Sinusitis J32.9 [facility] [address] [facility] [address] [place], [place] [id number] 03/29/2025 Anne Grant Herpes zoster withou t complication B02.9 ; Bruising T14.8XXA ; Screening, lipid Z13.220 ; Elevated liver enzymes R74.8 and BMI 21.0-21.9, adult Z68.21 [facility] [address] [facility] [address] [place], [place] [id number] 06/08/2025 Anne Grant Acute URI J06.9 [facility] [address] [facility] [address] [place], [place] [phone] 07/11/2025 Cuauhtemoc Rye Nausea and vomiting, unspecified vomiting type R11.2 and 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 [facility] [address] [place], [place] [phone] 03/30/2025 Anne Grant [facility] [address] [facility] [address] [place], [place] [phone] 04/17/2025 Cuauhtemoc Rye [facility] [address] [place], [place] [phone] 07/23/2025 Cuauhtemoc Rye Neoplasm of uncertai n behavior of pancreas D37.8 Assessments Encounter Date Diagnosis (ICD Code) Assessment Notes Treatment Notes Treatment Clinical Notes Section Notes 03/29/2025 Herpes zoster without complication (ICD-10 - B02.9) 03/29/2025 Bruising (ICD-10 - T14.8XXA) 06/08/2025 Acute URI (ICD-10 - J06.9) fluids, rest, supportive measures for fever/symptom relief, all tests are negative, if she is better by Wednesday should be able to do her c-scope 07/11/2025 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) 10/30/2024 Constipation (ICD-10 - K59.00) taking metamucil now and will add Miralax 10/30/2024 Nausea (ICD-10 - R11.0) bland foods in small amounts with good fluid intake--small amounts frequently; no soda or caffeine, fluids, rest, supportive measures for fever/symptom relief 08/30/2024 Acute URI (ICD-10 - J06.9) 10/30/2024 Sinusitis (ICD-10 - J32.9) good water intake 03/29/2025 Screening, lipid (ICD-10 - Z13.220) 03/29/2025 Elevated liver enzymes (ICD-10 - R74.8) 03/29/2025 BMI 21.0-21.9, adult (ICD-10 - Z68.21) Plan Of Treatment Pending Test Test Name Order Date PET scan 07/23/2025 H-UPPER RESP, PCR 07/05/2023 Next Appt Details Provider Name:Cuauhtemoc Ford , 08/01/2025 02:00:00 PM, [address] [facility] [address] [facility], [address], [place], [place], [id number], Insurance Providers Payer Name Payer Address Payer Phone Subscriber Number Group Number Insured Name Patient Relationship to Insured Coverage Start Date Coverage End Date CATHY VINES [address] [place] [address] [id number] Desiree Huber Self - patient is the insured Medications Administered Medication Instructions Date of Administration Dosage Notes phenergan 25 mg/ml 08/26/2011 phenergan 50mg/ml 06/03/2009 50 mg Medical (General) History Surgical History Surgery Date(Month/Year) RT Shoulder 04/2007 Hysterectomy 04/2014 [facility] Hospitalization History Reason Date(Month/Year) Wrist- [facility] 08/15/2016
== END 2025-07-30 23:59 | disposition home or self-care (01) ==
LOC: LAB.DROPOF 07-31 10:07
PROVIDERS: PCP Family Medicine; Visit Provider Nurse Practitioner
DX: J06.9 Acute upper respiratory infection, unspecified (principal); J02.9 Acute pharyngitis, unspecified
CPT/HCPCS: 87631